=== PATIENT | female | born 1960 | race Caucasian/White ===

== ENCOUNTER → 2016-02-29 | Outpatient (CLI) | payer BC ==
[~2016-02-29] MED LIST: ALL180 PO; AMB10 PO; AMOX875T PO; ASPI81TA28 PO; CIPR-255 PO; COEN100C3 PO; COEN100C7 PO; COEN1CAP46 PO; CRS/10 PO; CRS10 PO; CYCL10TA6 PO; DIAZ2TAB PO; DICY10CA12 PO; ERGO500037 PO; FEXO1TAB49 PO; FISHOIL PO; HYDR-5688 PO; HYOS0.1255 PO; LORA0.5T12 PO; MELO7.5T5 PO; METHPOW7 PO; METO25TA3 PO; METR-162 PO; MINEOIL26 PO; MISCCAP80 PO; OMEG100046 PO; OMEG1CAP38 PO; ONDA4TAB46 PO; OXYC1TAB3 PO; RYT150 PO; TRAM-10 PO; TRAZ50TA35 PO; ZOLP5TAB PO
--- NOTE | 2016-02-29 12:36 | MAMMOGRAPHY REPORT ---
BILATERAL DIGITAL SCREENING MAMMOGRAM TOMOSYNTHESIS WITH CAD: 02/29/2016 CLINICAL HISTORY: Routine screening. Patient has no complaints. TECHNIQUE: Breast tomosynthesis in addition to standard 2D mammography was performed. Current study was also evaluated with a Computer Aided Detection (CAD) system. COMPARISON: Comparison is made to exams dated: 02/08/2013 mammogram, 02/27/2015 mammogram, 02/21/2014 mammogram, 02/07/2012 mammogram, 02/05/2011 mammogram, and 01/02/2010 mammogram - [facility]. BREAST COMPOSITION: The tissue of both breasts is almost entirely fatty. FINDINGS: No suspicious masses, calcifications, or areas of architectural distortion are noted in e ither breast. There has been no significant interval change compared to prior exams. IMPRESSION: ACR BI-RADS CATEGORY 1: NEGATIVE There is no mammographic evidence of malignancy. A 1 year screening mammogram is recommended. The p atient will receive written notification of the results. Approximately 10% of breast cancers are not detected with mammography. A negative mammographic repor t should not delay biopsy if a clinically suggestive mass is present. Tammie Henning M.D. /:02/29/2016 07:49:25 Equipment Or Machinery Cleaner: Coleen EDMOND(R)(M), [facility] letter sent: Normal 1/2 BI-RADS Code: ACR BI-RADS Category 1: Negative
== END | disposition home or self-care (01) ==
LOC: C.MAMM 07:10
PROVIDERS: ATTEND Family Medicine
DX: Z12.31 Encounter for screening mammogram for malignant neoplasm of breast (principal)

== ENCOUNTER → 2016-03-06 | Outpatient (CLI) | payer BC ==
--- NOTE | 2016-03-06 07:55 | DIAGNOSTIC IMAGING REPORT ---
RENAL ULTRASOUND CLINICAL HISTORY: Renal cyst. COMPARISON STUDY: CT of the abdomen and pelvis February 17, 2016 and renal ultrasound October 31, 2008. TECHNIQUE: Sonography of the kidneys and the urinary bladder was performed. FINDINGS: The right kidney measures 10.9 cm in maximal dimension and the left measures 11.8 cm. There is no hydronephrosis. There is mild renal cortical thinning. There is a 1.2 cm cyst within the midpole of the right kidney and a 1.1 cm cyst within the midpole of the left kidney. Both ureteral jets were identified. Fatty infiltration of the liver was incidentally noted. IMPRESSION: 1. 1.2 cm right renal cyst and 1.1 cm left renal cyst. 2. No hydronephrosis. 3. Fatty liver. Electronically signed by: Kike Brower M.D. 03/06/2016 7:52 AM Dictated Date/Time: 03/06/2016 7:51 AM
== END | disposition home or self-care (01) ==
LOC: C.ULTR 06:51
PROVIDERS: ATTEND Family Medicine
DX: N28.1 Cyst of kidney, acquired (principal); K76.0 Fatty (change of) liver, not elsewhere classified

== ENCOUNTER 2016-06-02 12:28 | Emergency (ER) | payer BC, OTHER ==
[~2016-06-02] VITALS: Ht 160 cm; Wt 88.0 kg
[~2016-06-02 12:28] MED LIST changes: -AMB10 PO; -AMOX875T PO; -CIPR-255 PO; -COEN100C3 PO; -COEN100C7 PO; -CRS/10 PO; -CRS10 PO; -CYCL10TA6 PO; -DIAZ2TAB PO; -DICY10CA12 PO; -ERGO500037 PO; -FEXO1TAB49 PO; -HYDR-5688 PO; -HYOS0.1255 PO; -LORA0.5T12 PO; -MELO7.5T5 PO; -METR-162 PO; -MISCCAP80 PO; -OMEG100046 PO; -OMEG1CAP38 PO; -ONDA4TAB46 PO; -OXYC1TAB3 PO; +PROP150T2 PO; -RYT150 PO; -TRAM-10 PO; -TRAZ50TA35 PO
[2016-06-02 12:31] VITALS: TEMP 36.8; Ht 160 cm; Wt 88.0 kg
[2016-06-02 13:32] VITALS: O2SAT 98
[2016-06-02 13:37] LABS: HEMATOCRIT 40.9 % (37-47); MEAN CELL VOLUME 89.1 fL (80-100); MEAN CORPUSCULAR HEMOGLOBIN 29.8 pg (25-34); MEAN CORPUSCULAR HGB CONC 33.5 g/dl (32-36); MEAN PLATELET VOLUME 10.7 fL (7.4-10.4); PLATELET COUNT 257 K/uL (130-400); RED BLOOD COUNT 4.59 M/uL (4.2-5.4); WHITE BLOOD COUNT 4.86 K/uL (4.8-10.8)
[2016-06-02 13:41] LABS: PARTIAL THROMBOPLASTIN RATIO 1.2; PROTHROMBIN TIME (PATIENT) 10.5 SECONDS (9.0-12.0)
[2016-06-02 13:46] LABS: ALT/SGPT 33 U/L (12-78); AST/SGOT 19 U/L (15-37); BLOOD UREA NITROGEN 19 mg/dl (7-18); BUN/CREATININE RATIO 18.7 (10-20); CALCIUM 8.7 mg/dl (8.5-10.1); CARBON DIOXIDE 30 mmol/L (21-32); CHLORIDE 105 mmol/L (98-107); GLUCOSE 95 mg/dl (70-99); POTASSIUM 3.6 mmol/L (3.5-5.1); SODIUM 144 mmol/L (136-145)
[2016-06-02 13:51] LABS: ALB/GLOB RATIO 1.1 (0.9-2); ALKALINE PHOSPHATASE 82 U/L (45-117)
[2016-06-02] MEDS ORDERED: ACETAMINOPHEN 500 MG TAB PO STA (14:12)
--- NOTE | 2016-06-02 14:14 | DIAGNOSTIC IMAGING REPORT ---
SINGLE VIEW CHEST CLINICAL HISTORY: Atypical chest pain. FINDINGS: An AP, portable, upright chest radiograph is compared to study dated 02/17/2016 and correlated with chest CT dated 12/13/2015. The examination is degraded by portable technique and patient rotation. The cardiomediastinal silhouette is unremarkable. There is mild bibasilar atelectasis. The lungs and pleural spaces are otherwise clear noting chronic interstitial thickening. No pneumothorax is seen. The skeletal structures are osteopenic. The bony thorax is grossly intact. IMPRESSION: No active disease in the chest. Electronically signed by: Jimmy Velazquez M.D. 06/02/2016 2:12 PM Dictated Date/Time: 06/02/2016 2:11 PM
--- NOTE | 2016-06-02 14:17 | EMERGENCY ROOM VISIT NOTE ---
History Report prepared by Srinivasa: Jordi Sarmiento Under the Supervision of: Dr. Mychal Maldonado D.O. First contact with patient: 13:42 Chief Complaint: CHEST PAIN Stated Complaint: CHEST PAIN Nursing Triage Summary: Pt reports intermittent chest pressure for "weeks." Pt reports chest pressure became worse last night and was only able to sleep approx 2 hours. Pt also reports mild shortness of breath. Pt states pain radiates into L neck and shoulder at times. Pt also c/o associated nausea with the chest pressure. Pt reports she takes 81 mg of Aspirin nightly. History of Present Illness The patient is a 55 year old female who presents to the Emergency Room with complaints of on and off chest pressure for the past month or so. The patient states that last night she could not sleep due to the pain, and it has not gone away. She states that the pressure is worsened when exerting herself such as going up and down stairs. She additionally states that she has been nauseous. The patient denies any recent illnesses. She states that she takes medication for her heart because she recently had a catheterization of her heart done, and she also had a stress test done in November. Source of History: patient Onset: a month ago Position: chest Quality: pressure Timing: other (on and off) Modifying Factors (Worsening): exertion Associated Symptoms: + nausea Review of Systems See HPI for pertinent positives & negatives. A total of 10 systems reviewed and were otherwise negative. Past Medical & Surgical Medical Problems: (1) Appendectomy (2) Benign hypertension (3) Cholecystectomy (4) Hysterectomy (5) Rectal fissure (6) Rectal fistula Family History Diabetes mellitus Hypertension Kidney disease Social History Smoking Status: Never Smoker Alcohol Use: none Drug Use: none Marital Status: Housing Status: lives alone Occupation Status: employed Current/Historical Medications Scheduled Aspirin (Aspirin Ec), 81 MG PO QPM Coenzyme Q10 (Ubidecarenone) (Co Q-10), 100 MG PO DAILY Fexofenadine Hcl (Michell Allergy), 180 MG PO DAILY Methylcellulose (Laxative) (Citrucel Fiber Laxative), 2 TBS PO DIRECTED Metoprolol Succinate (Toprol Xl), 12.5 MG PO HS Mineral Oil (Mineral Oil), 2 TBS PO QPM [place]-3 Fatty Acids (Gnp Fish Oil Maximum Stre), 1 CAP PO DAILY Propafenone HCl (Propafenone HCl), 150 MG PO Q8 Rosuvastatin Calcium (Crestor), 10 MG PO DAILY Zolpidem Tartrate (Ambien), 5 MG PO HS Allergies Coded Allergies: NSAIDs (Verified Allergy, Unknown, HIVES, PATIENT STATES SHE CAN TAKE ALEVE AND MOTRIN, 02/17/16) Naproxen (Verified Allergy, Unknown, HIVES, 02/17/16) Replaces NAPROXEN SODI Uncoded Allergies: BANDAIDS (Allergy, Unknown, blisters, 05/23/14) Physical Exam Vital Signs Date Time Temp Pulse Resp B/P Pulse Ox O2 Delivery O2 Flow Rate FiO2 06/02/16 13:49 75 18 110/63 94 Room Air 06/02/16 13:32 98 Room Air 06/02/16 13:32 98 Room Air 06/02/16 13:24 71 06/02/16 13:05 69 12 105/69 98 Room Air 06/02/16 13:00 94 Room Air 06/02/16 12:31 36.8 80 18 115/75 97 Room Air Physical Exam CONSTITUTIONAL/VITAL SIGNS: Reviewed / noted above. GENERAL: Non-toxic in appearance. INTEGUMENTARY: Warm, dry, and [place]. HEAD: Normocephalic. EYES: without scleral icterus or trauma. ENT/OROPHARYNX: clear and moist. LYMPHADENOPATHY/NECK: Is supple without lymphadenopathy or meningismus. RESPIRATORY: Lungs clear and equal. CARDIOVASCULAR: Regular rate and rhythm. GI/ABDOMEN: Soft and nontender. No organomegaly or pulsatile mass. No rebound or guarding. Normal bowel sounds. EXTREMITIES: Warm and well perfused. BACK: No CVA tenderness. NEUROLOGICAL: Intact without focal deficits. PSYCHIATRIC: normal affect. MUSCULOSKELETAL: Normally developed with good muscle tone. Medical Decision & Procedures ER Provider Diagnostic Interpretation: X ray results and stated below per my interpretation and radiology interpretation. SINGLE VIEW CHEST CLINICAL HISTORY: Atypical chest pain. FINDINGS: An AP, portable, upright chest radiograph is compared to study dated 02/17/2016 and correlated with chest CT dated 12/13/2015. The examination is degraded by portable technique and patient rotation. The cardiomediastinal silhouette is unremarkable. There is mild bibasilar atelectasis. The lungs and pleural spaces are otherwise clear noting chronic interstitial thickening. No pneumothorax is seen. The skeletal structures are osteopenic. The bony thorax is grossly intact. IMPRESSION: No active disease in the chest. Electronically signed by: Jimmy Velazquez M.D. 06/02/2016 2:12 PM Dictated Date/Time: 06/02/2016 2:11 PM Laboratory Results 06/02/16 12:40 06/02/16 12:40 Test 06/02/16 12:40 Red Blood Count 4.59 M/uL (4.2-5.4) Mean Corpuscular Volume 89.1 fL (80-100) Mean Corpuscular Hemoglobin 29.8 pg (25-34) Mean Corpuscular Hemoglobin Concent 33.5 g/dl (32-36) RDW Standard Deviation 43.4 fL (36.4-46.3) RDW Coefficient of Variation 13.3 % (11.5-14.5) Mean Platelet Volume 10.7 fL (7.4-10.4) Prothrombin Time 10.5 SECONDS (9.0-12.0) Prothromb Time International Ratio 1.0 (0.9-1.1) Activated Partial Thromboplast Time 30.1 SECONDS (21.0-31.0) Partial Thromboplastin Ratio 1.2 Anion Gap 9.0 mmol/L (3-11) Est Creatinine Clear Calc Drug Dose 66.9 ml/min Estimated GFR () 73.5 Estimated GFR (Non- 63.4 BUN/Creatinine Ratio 18.7 (10-20) Calcium Level 8.7 mg/dl (8.5-10.1) Total Bilirubin 0.6 mg/dl (0.2-1) Aspartate Amino Transf (AST/SGOT) 19 U/L (15-37) Alanine Aminotransferase (ALT/SGPT) 33 U/L (12-78) Alkaline Phosphatase 82 U/L (45-117) Total Creatine Kinase 106 U/L (26-192) Creatine Kinase MB 1.1 ng/ml (0.5-3.6) Creatine Kinase MB Ratio 1.0 (0-3.0) Troponin I < 0.015 ng/ml (0-0.045) Total Protein 7.4 gm/dl (6.4-8.2) Albumin 3.9 gm/dl (3.4-5.0) Globulin 3.5 gm/dl (2.5-4.0) Albumin/Globulin Ratio 1.1 (0.9-2) Laboratory results as stated above per my review. ECG Indication: chest pain Rate (beats per minute): 65 Rhythm: sinus rhythm Findings: 1st degree AV block, no ectopy, other (No acute injury) ED Course 1350: Previous medical records were reviewed. The patient was evaluated in room A9. A complete history and physical examination was performed. 1412: Tylenol Tab 1000mg PO 1430: On reevaluation, the patient is feeling better. I discussed the results and findings with the patient. She verbalized agreement of the treatment plan. She was discharged home. Medical Decision the differential was considered includes acute myocardial infarction, acute coronary syndrome, myocarditis, pericarditis, pericardial effusions /tamponade, esophageal perforation, thoracic aortic dissection, pulmonary embolism, pneumonia, pneumothorax, pancreatitis, shingles, acute cholecystitis, perforated abdominal viscus. This is a 55-year-old female who presents to the ED with a chief complaint of chest pressure. The patient states that she has had the symptoms for about 2 months. She states that there off and on. Occasionally it increases with thinking and sometimes with exertion. The patient denies any associated symptoms. She has not had any recent illness. She denies any fevers. No shortness of breath. The patient reports a history of cardiac ablation for SVT and 05/31. She had a stress test and 12/02. The patient's exam was normal. Her vital signs are normal. She is in no distress. CBC is normal, complete metabolic panels normal, troponin is negative. Chest x-ray was negative for acute disease. An EKG shows a sinus rhythm at a rate of 75 with a first-degree AV block without acute injury or ectopy. She was told results the test. 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 Impression Primary Impression: Substernal precordial chest pain Scribe Attestation The scribe's documentation has been prepared under my direction and personally reviewed by me in its entirety. I confirm that the note above accurately reflects all work, treatment, procedures, and medical decision making performed by me. Departure Information Dispostion Home / Self-Care Referrals Vidhi Hairston D.O. (PCP) Forms HOME CARE DOCUMENTATION FORM, IMPORTANT VISIT INFORMATION Patient Instructions Chest Pain - [facility], My [facility] Additional Instructions Your test results today did not reveal a cause for your symptoms. Follow-up with your doctor and/or timber supervisor for further evaluation. Call tomorrow for an appointment. Return for significant worsening, changes or new concerns.
[2016-06-02] MEDS ORDERED: OMEG1CAP38 PO (14:38)
[2016-06-02] MEDS ORDERED: CRS10 PO (14:38)
[2016-06-02] MEDS ORDERED: FEXO1TAB49 PO (14:38)
[2016-06-02] MEDS ORDERED: COEN100C3 PO (14:38)
[2016-06-02 14:45] VITALS: BP 111/76; PULSE 70; O2SAT 95
[2016-07-24] MEDS ORDERED: PROP150T2 PO (13:00)
[2016-07-24] MEDS ORDERED: AMOX875T PO (15:32)
[2016-07-24] MEDS ORDERED: HYDR-5688 PO (15:32)
[2016-09-16] MEDS ORDERED: MELO7.5T5 PO (08:17)
[2016-09-16] MEDS ORDERED: TRAZ50TA35 PO (08:17)
[2016-09-16] MEDS ORDERED: ERGO500037 PO (08:17)
[2016-09-16] MEDS ORDERED: LORA0.5T12 PO (08:17)
[2016-11-04] MEDS ORDERED: CYCL10TA6 PO (11:03)
[2016-11-04] MEDS ORDERED: TRAM-10 PO (11:03)
[2016-11-25] MEDS ORDERED: GABA-113 PO (09:20)
== END 2016-06-02 14:46 | disposition home or self-care (01) ==
LOC: C.EDB 12:28 → C.EDA 14:46
DX: R07.2 Precordial pain (principal); I44.0 Atrioventricular block, first degree; I10 Essential (primary) hypertension; Z90.710 Acquired absence of both cervix and uterus; Z98.890 Other specified postprocedural states; Z79.82 Long term (current) use of aspirin; Z79.899 Other long term (current) drug therapy; Z88.8 Allergy status to other drugs, medicaments and biological substances; Z83.3 Family history of diabetes mellitus; Z82.49 Family history of ischemic heart disease and other diseases of the circulatory system; Z84.1 Family history of disorders of kidney and ureter

== ENCOUNTER 2016-06-24 15:24 | Emergency (ER) | payer BC ==
[~2016-06-24] VITALS: Ht 160 cm; Wt 87.6 kg
[~2016-06-24 15:24] MED LIST changes: -AMB10 PO; -AMOX875T PO; -CIPR-255 PO; -COEN100C7 PO; -CRS/10 PO; -CYCL10TA6 PO; -DIAZ2TAB PO; -DICY10CA12 PO; -ERGO500037 PO; -GABA-113 PO; -HYDR-5688 PO; -HYOS0.1255 PO; -LORA0.5T12 PO; -MELO7.5T5 PO; -METR-162 PO; -MINEOIL26 PO; -MISCCAP80 PO; -OMEG100046 PO; -ONDA4TAB46 PO; -OXYC1TAB3 PO; -TRAM-10 PO; -TRAZ50TA35 PO
[2016-06-24 15:36] VITALS: TEMP 36.9; Ht 160 cm; Wt 87.6 kg
[2016-06-24] MEDS ORDERED: TRAM-10 PO (16:07)
--- NOTE | 2016-06-24 16:15 | EMERGENCY ROOM VISIT NOTE ---
History First contact with patient: 15:39 Chief Complaint: GROIN PAIN Stated Complaint: LEFT SIDE GROIN PAIN History of Present Illness The patient is a 55 year old female who presents to the Emergency Room with complaints of persistent left lower abdominal pain after lifting a heavy bag of dog food yesterday. The patient reports feeling a tearing sensation in the abdomen. The patient was seen this morning by her PCP, and had an outpatient ultrasound performed that was normal. Because of her persistent pain, the patient called her family doctor's office, and according to the patient, was referred here for further reevaluation. The patient denies any pain extending into the back or left lower extremity. Her pain is not worsened with simple ambulation. The pain is worsened when bending over or attempting to sit up area she denies any pain extending into the vaginal region, and denies any difficulty with urination. The patient denies any prior history of left lower abdominal wall hernias. She does have a history of hysterectomy. She rates her discomfort an 8 out of 10. The patient has taken Flexeril and Aleve without any relief. Review of Systems 10 system review was performed and was negative except for pertinent positives and negatives as indicated in history of present illness Past Medical/Surgical History Medical Problems: (1) Appendectomy (2) Benign hypertension (3) Cholecystectomy (4) Hysterectomy (5) Rectal fissure (6) Rectal fistula Family History Diabetes mellitus Hypertension Kidney disease Social History Smoking Status: Never Smoker Alcohol Use: none Drug Use: none Marital Status: Housing Status: lives alone Occupation Status: employed Current/Historical Medications Scheduled Aspirin (Aspirin Ec), 81 MG PO QPM Coenzyme Q10 (Ubidecarenone) (Co Q-10), 100 MG PO DAILY Fexofenadine Hcl (Michell Allergy), 180 MG PO DAILY Methylcellulose (Laxative) (Citrucel Fiber Laxative), 2 TBS PO DIRECTED Metoprolol Succinate (Toprol Xl), 12.5 MG PO HS [place]-3 Fatty Acids (Gnp Fish Oil Maximum Stre), 1 CAP PO DAILY Propafenone HCl (Propafenone HCl), 150 MG PO Q8 Rosuvastatin Calcium (Crestor), 10 MG PO DAILY Zolpidem Tartrate (Ambien), 5 MG PO HS Scheduled PRN Tramadol (Ultram), 1-2 TAB PO Q4H PRN for Pain Allergies Coded Allergies: NSAIDs (Verified Allergy, Unknown, HIVES, PATIENT STATES SHE CAN TAKE ALEVE AND MOTRIN, 02/17/16) Naproxen (Verified Allergy, Unknown, HIVES, 06/02/16) Replaces NAPROXEN SODI Uncoded Allergies: BANDAIDS (Allergy, Unknown, blisters, 05/23/14) Physical Exam Vital Signs Date Time Temp Pulse Resp B/P Pulse Ox O2 Delivery O2 Flow Rate FiO2 06/24/16 15:36 36.9 96 18 95 Room Air Physical Exam CONSTITUTIONAL: Healthy and well nourished. Alert and oriented X 3 with positive affect. Patient appears in mild discomfort from pain. HEENT: Normocephalic, atraumatic. Pupils equal, round and reactive. NECK: Full active range of motion without discomfort. RESPIRATORY: Clear to auscultation bilaterally with no wheezing, crackles, rhonchi or stridor. CARDIOVASCULAR: Regular rate and rhythm with no murmurs, rubs or gallops. GASTROINTESTINAL: Bowel sounds present in all quadrants. The patient has notable left lower quadrant tenderness to palpation without any palpable masses. She is also tender over the anterior superior iliac spine. When the patient attempted to sit up, her pain is worsened. No rigidity, guarding or rebound. MUSCULOSKELETAL: Full range of motion of all joints without discomfort. Negative logroll of the left hip. Negative straight leg raise. INTEGUMENTARY: No rash or other significant dermatologic conditions noted. NEUROLOGIC: No focal neurologic deficits noted. Medical Decision & Procedures ER Provider Diagnostic Interpretation: I did review a prior enhanced CT of the abdomen and pelvis on 02/17/16, showed no acute findings when she presented for left lower quadrant abdominal pain: IMPRESSION: 1. No evidence of bowel obstruction. No evidence of free air. 2. Normal appendix. No evidence of acute diverticulitis. 3. Surgically absent gallbladder and uterus 4. Hepatic steatosis Left lower quadrant ultrasound from this morning does not show any evidence for abdominal wall or inguinal hernia. Radiologist report is as follows: ABDOMEN FOR HERNIA CLINICAL HISTORY: Left lower quadrant pain. Evaluate for hernia. COMPARISON STUDY: CT of the abdomen and pelvis February 17, 2016. TECHNIQUE: Sonography of the left lower quadrant was performed with and without stress maneuvers. FINDINGS: No left lower quadrant hernia was identified. No mass or other sonographic abnormality within the left lower quadrant abdominal wall was identified. IMPRESSION: No left lower quadrant hernia identified. ED Course Patient history and physical exam were performed. Nurse's notes were reviewed. The patient did appear in mild discomfort. I performed a review of prior medical records, including the ultrasound report from this morning. I also reviewed an enhanced CT of the abdomen and pelvis performed on 02/17/16 when the patient presented to the emergency department with complaint of left lower quadrant abdominal pain. That CT scan showed no evidence for diverticulosis or other acute findings. Based on physical exam findings today, and normal abdominal wall ultrasound, I explained to the patient that her risk for abdominal wall hernia is low. I did explain that she certainly could have a muscular tear or strain of the abdominal wall musculature. At this point, I do not feel that a CT scan would show us much different, plus provide significant radiation exposure for low yield. However, I did suggest that I discuss this further with Dr. Hairston, the patient's PCP. I spoke with Dr. Hairston, who reports that she told the patient to same thing, but the patient insisted on coming to the emergency department for reevaluation. I also reviewed the patient's prior narcotic prescription history with both Dr. Hairston and the [place] Prescription Drug Monitoring Program, showing that the patient has not had any prior prescription narcotic analgesics. Dr. Hairston suggested that the patient follow-up in her office as needed for further management, calling for an appointment. This information was further discussed with the patient, and the patient was in agreement with this plan of care. The patient did want something for pain, but refused any narcotic prescriptions. She was provided a prescription for Ultram, and was encouraged to take Tylenol for baseline pain relief. She was encouraged to intermittently apply ice to the abdominal wall, and avoid any heavy lifting, pushing or pulling. The patient was happy with plan of care, voiced understanding of all discharge instructions, refused any analgesics while in the emergency department, and rated her pain a 6 out of 10 at the time of discharge. [place] Drug Monitoring Program Search Results: patient reviewed within database, no issues identified Impression Primary Impression: Strain of abdominal wall Departure Information Prescriptions Tramadol (Ultram) 50 Mg Tab 1-2 TAB PO Q4H Y for Pain, #20 TAB For Initial Treatment Prov: Cristino Kaur PA 06/24/16 Referrals Vidhi Hairston D.O. (PCP) Patient Instructions [facility] Problem Qualifiers Primary Impression: Strain of abdominal wall Encounter type: initial encounter Qualified Codes: S39.011A - Strain of muscle, fascia and tendon of abdomen, initial encounter
[2016-06-24 16:17] VITALS: BP 97/70; PULSE 100; O2SAT 94
[2016-07-24] MEDS ORDERED: PROP150T2 PO (13:00)
[2016-07-24] MEDS ORDERED: HYDR-5688 PO (15:32)
[2016-07-24] MEDS ORDERED: AMOX875T PO (15:32)
[2016-09-16] MEDS ORDERED: TRAZ50TA35 PO (08:17)
[2016-09-16] MEDS ORDERED: MELO7.5T5 PO (08:17)
[2016-09-16] MEDS ORDERED: ERGO500037 PO (08:17)
[2016-09-16] MEDS ORDERED: LORA0.5T12 PO (08:17)
[2016-11-04] MEDS ORDERED: TRAM-10 PO (11:03)
[2016-11-04] MEDS ORDERED: CYCL10TA6 PO (11:03)
[2016-11-25] MEDS ORDERED: GABA-113 PO (09:20)
== END 2016-06-24 16:20 | disposition home or self-care (01) ==
LOC: C.EDB 15:25 → C.EDD 16:20
DX: S39.011A Strain of muscle, fascia and tendon of abdomen, initial encounter (principal); X58.XXXA Exposure to other specified factors, initial encounter; I10 Essential (primary) hypertension; Z90.710 Acquired absence of both cervix and uterus; Z90.49 Acquired absence of other specified parts of digestive tract; Z98.890 Other specified postprocedural states; Z79.82 Long term (current) use of aspirin; Z88.8 Allergy status to other drugs, medicaments and biological substances; Z83.3 Family history of diabetes mellitus; Z82.49 Family history of ischemic heart disease and other diseases of the circulatory system; Z84.1 Family history of disorders of kidney and ureter

== ENCOUNTER → 2016-06-24 | Outpatient (CLI) | payer BC ==
[~2016-06-24] MED LIST changes: -ALL180 PO; +AMB10 PO; +AMOX875T PO; +CIPR-255 PO; +COEN100C3 PO; +COEN100C7 PO; -COEN1CAP46 PO; +CRS/10 PO; +CRS10 PO; +CYCL10TA6 PO; +DIAZ2TAB PO; +DICY10CA12 PO; +ERGO500037 PO; +FEXO1TAB49 PO; -FISHOIL PO; +GABA-113 PO; +HYDR-5688 PO; +HYOS0.1255 PO; +LORA0.5T12 PO; +MELO7.5T5 PO; +METR-162 PO; +MISCCAP80 PO; +OMEG100046 PO; +OMEG1CAP38 PO; +ONDA4TAB46 PO; +OXYC1TAB3 PO; +TRAM-10 PO; +TRAZ50TA35 PO
--- NOTE | 2016-06-24 15:07 | DIAGNOSTIC IMAGING REPORT ---
ABDOMEN FOR HERNIA CLINICAL HISTORY: Left lower quadrant pain. Evaluate for hernia. COMPARISON STUDY: CT of the abdomen and pelvis February 17, 2016. TECHNIQUE: Sonography of the left lower quadrant was performed with and without stress maneuvers. FINDINGS: No left lower quadrant hernia was identified. No mass or other sonographic abnormality within the left lower quadrant abdominal wall was identified. IMPRESSION: No left lower quadrant hernia identified. Electronically signed by: Kike Brower M.D. 06/24/2016 3:06 PM Dictated Date/Time: 06/24/2016 3:04 PM
== END | disposition home or self-care (01) ==
LOC: C.ULTR 14:47
PROVIDERS: ATTEND Family Medicine
DX: R10.9 Unspecified abdominal pain (principal)

== ENCOUNTER 2016-07-12 11:20 | Emergency (ER) | payer BC ==
[~2016-07-12] VITALS: Ht 160 cm; Wt 85.0 kg
[~2016-07-12 11:20] MED LIST changes: +TRAM-10 PO
[2016-07-12 11:23] VITALS: TEMP 36.6; Ht 160 cm; Wt 85.0 kg
[2016-07-12] MEDS ORDERED: ONDANSETRON INJ 2 MG/ML 2 ML VIAL IV STA ×2 (11:56→12:38)
[2016-07-12] MEDS ORDERED: SODIUM CHLORIDE 0.9% 1000ML 1,000 ML IV STA (11:56)
[2016-07-12] MEDS ORDERED: OPTIRAY 320 IV PRN ×2 (12:15→13:30)
[2016-07-12 12:20] LABS: BASO % 0.1 %; BASO ABS # 0.01 K/uL (0-0.2); COMPLETE YES; HEMATOCRIT 43.7 % (37-47); IG% 0.1 %; LYMPH % 21.5 %; LYMPH ABS # 1.71 K/uL (1.2-3.4); MEAN CORPUSCULAR HEMOGLOBIN 30.1 pg (25-34); MEAN CORPUSCULAR HGB CONC 32.7 g/dl (32-36); MEAN PLATELET VOLUME 10.8 fL (7.4-10.4); MONO % 10.4 %; NEUT % 66.9 %; PLATELET COUNT 279 K/uL (130-400); RED BLOOD COUNT 4.75 M/uL (4.2-5.4); WHITE BLOOD COUNT 7.96 K/uL (4.8-10.8)
[2016-07-12 12:33] LABS: URINE APPEARANCE CLEAR (CLEAR); URINE BILIRUBIN NEG (NEG); URINE COLOR YELLOW; URINE NITRITE NEG (NEG); URINE PH 8.5 (4.5-7.5); URINE SPECIFIC GRAVITY 1.013 (1.000-1.030); UROBILINOGEN NEG (NEG); ZZUR CULT IF INDIC CLEAN CATCH NO
[2016-07-12 12:38] LABS: MANUAL MICROSCOPIC REQUIRED? NO; REVIEW REQ? NO
[2016-07-12] MEDS ORDERED: MoRPHine SULFATE 10 MG/ML CARP/VIAL IV STA (12:38)
[2016-07-12 12:44] LABS: BUN/CREATININE RATIO 15.9 (10-20); CALCIUM 9.3 mg/dl (8.5-10.1); CREATININE 0.82 mg/dl (0.60-1.20)
[2016-07-12] MEDS ORDERED: OMEG100046 PO (12:45)
[2016-07-12] MEDS ORDERED: METHPOW7 PO (12:45)
[2016-07-12] MEDS ORDERED: FEXO1TAB49 PO (12:45)
[2016-07-12] MEDS ORDERED: ASPI81TA28 PO (12:45)
[2016-07-12] MEDS ORDERED: COEN100C7 PO (12:45)
[2016-07-12] MEDS ORDERED: ZOLP5TAB PO (12:45)
[2016-07-12] MEDS ORDERED: METO25TA3 PO (12:45)
[2016-07-12] MEDS ORDERED: MINEOIL26 PO (12:45)
[2016-07-12] MEDS ORDERED: CRS/10 PO (12:45)
--- NOTE | 2016-07-12 13:39 | DIAGNOSTIC IMAGING REPORT ---
ABDOMEN AND PELVIS CT WITH IV CONTRAST CT DOSE: 983.66 mGycm HISTORY: Right lower quadrant abdominal pain. TECHNIQUE: Multiaxial CT images of the abdomen and pelvis were performed following the use of intravenous contrast. COMPARISON STUDY: Abdomen and pelvis CT 02/17/2016. FINDINGS: A few bibasilar linear densities favor subsegmental atelectasis are scarring. Cholecystectomy. The liver, spleen, adrenal glands, and pancreas are unremarkable. A left retroaortic renal vein. Tiny fat-containing umbilical hernia. No hydronephrosis. Stable 7 mm hypodense lesion within the left kidney and the left millimeter lesion within the right kidney. Stable slightly prominent periportal lymph nodes. Normal bladder. Hysterectomy. Focal mild thickening within the mid sigmoid colon with an inflamed diverticulum and surrounding pericolonic fat stranding. This is consistent with acute diverticulitis. No perforation or abscess identified at this time. No evidence for bowel obstruction. Normal appendix. A 9 mm faint nodular opacity within the left lower quadrant omentum on image 232. This is new from the prior study. IMPRESSION: 1. Mild acute sigmoid diverticulitis. No perforation or abscess. 2. Normal appendix. 3. Cholecystectomy. 4. Hysterectomy. 5. A 9 mm faint nodular opacity within the left lower quadrant omentum. This is new from the prior study. This is of uncertain clinical significance. However, if a one month abdomen and pelvis CT follow is recommended to ensure stability. Electronically signed by: Victoriano Virk M.D. 07/12/2016 1:37 PM Dictated Date/Time: 07/12/2016 1:30 PM
[2016-07-12] MEDS ORDERED: GI COCKTAIL PO STA (14:03)
[2016-07-12] MEDS ORDERED: LIDOCAINE HCL 2% VISC SOLN 20 ML UDC ONE (14:13)
[2016-07-12] MEDS ORDERED: ALUMINUM/MAGNESIUM SUSP 30 ML UDC ONE (14:13)
[2016-07-12] MEDS ORDERED: METRONIDAZOLE 500MG / 100ML NSS IV STA (14:20)
[2016-07-12] MEDS ORDERED: CIPROFLOXACIN 500 MG TAB PO STA (14:20)
[2016-07-12] MEDS ORDERED: SODIUM CHLORIDE 0.9% 500ML 500 ML IV STA (15:02)
[2016-07-12] MEDS ORDERED: OXYC1TAB3 PO (15:11)
[2016-07-12] MEDS ORDERED: METR-162 PO (15:11)
[2016-07-12] MEDS ORDERED: CIPR-255 PO (15:11)
[2016-07-12 16:52] VITALS: BP 100/58; PULSE 76; O2SAT 92
--- NOTE | 2016-07-12 17:12 | EMERGENCY ROOM VISIT NOTE ---
History Report prepared by Srinivasa: Corrine Smith Under the Supervision of: Dr. Dewey Beach D.O. First contact with patient: 11:32 Chief Complaint: ABDOMINAL PAIN Stated Complaint: BELLY PAIN Nursing Triage Summary: pt here abd pains across abd since friday. pt states more tender on right side. some nausea. History of Present Illness The patient is a 55 year old female who presents to the Emergency Room with complaints of constant abdominal pain beginning 5 days prior to arrival. She is also experiencing nausea and diarrhea. She notes a history of diverticulitis and at first thought this is what she had. The patient did take Amoxicillin for 2 days but stopped when she did not see improvement of her symptoms. She does still have her appendix. The patient has had her gall bladder removed and a complete hysterectomy. Pt denies headache, change in vision, fevers, chest pain , shortness of breath, vomiting, pain with urination, and melena. 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 A total of 10 systems reviewed and were otherwise negative. Past Medical & Surgical Medical Problems: (1) Appendectomy (2) Benign hypertension (3) Cholecystectomy (4) Hysterectomy (5) Rectal fissure (6) Rectal fistula Family History Diabetes mellitus Hypertension Kidney disease Social History Smoking Status: Never Smoker Alcohol Use: none Drug Use: none Marital Status: Housing Status: lives alone Occupation Status: employed Current/Historical Medications Scheduled Aspirin (Aspirin Ec), 81 MG PO DAILY Ciprofloxacin Hcl (Cipro), 500 MG PO BID Coenzyme Q10 (Ubidecarenone) (Coq10), 100 MG PO DAILY Fexofenadine Hcl ([place]hell Allergy), 1 TAB PO DAILY Methylcellulose (Laxative) (Citrucel Fiber Laxative), 2 TBS PO DAILY Metoprolol Succ (Toprol Xl) (Toprol-Xl), 25 MG PO QPM Metronidazole (Flagyl), 1 TAB PO TID Mineral Oil (Mineral Oil), 2 TBS PO DAILY [place]-3 Fatty Acids ([place] 3), 1,200 MG PO AMPM Rosuvastatin Calcium (Crestor), 10 MG PO QPM Zolpidem Tartrate (Ambien), 5 MG PO HS Scheduled PRN Oxycodone Immediate Rel Tab (Roxicodone Ir), 5 MG PO Q6H PRN for Pain Allergies Coded Allergies: NSAIDs (Verified Allergy, Unknown, HIVES, PATIENT STATES SHE CAN TAKE ALEVE AND MOTRIN, 02/17/16) Naproxen (Verified Allergy, Unknown, HIVES, 06/02/16) Replaces NAPROXEN SODI Uncoded Allergies: BANDAIDS (Allergy, Unknown, blisters, 05/23/14) Physical Exam Vital Signs Date Time Temp Pulse Resp B/P Pulse Ox O2 Delivery O2 Flow Rate FiO2 07/12/16 16:52 76 18 100/58 92 07/12/16 16:00 63 16 97/59 93 Room Air 07/12/16 14:31 92/56 07/12/16 14:20 72 10 94 07/12/16 14:18 110/70 07/12/16 13:50 69 18 93 07/12/16 13:31 103/64 07/12/16 13:21 109/59 07/12/16 13:20 72 16 97 07/12/16 12:50 71 14 97 07/12/16 12:31 94/53 07/12/16 12:20 72 15 96 07/12/16 12:03 69 07/12/16 12:02 91/72 07/12/16 11:50 68 13 07/12/16 11:34 118/74 07/12/16 11:23 36.6 76 16 126/83 95 Physical Exam GENERAL: alert, sitting up in bed, disheveled appearing, well nourished, no distress, non-toxic EYE EXAM: normal conjunctiva OROPHARYNX: no exudate, no erythema, lips, buccal mucosa, and tongue normal and mucous membranes are moist NECK: supple, no nuchal rigidity, no adenopathy, non-tender LUNGS: Clear to auscultation. Normal chest wall mechanics HEART: no murmurs, S1 normal and S2 normal ABDOMEN: abdomen soft, tender to palpation of right lower quadrant and suprapubic region, normo-active bowel sounds, no masses, no rebound or guarding. BACK: Back is symmetrical on inspection and there is no deformity, no midline tenderness, no CVA tenderness. SKIN: no rashes and no bruising UPPER EXTREMITIES: upper extremities are grossly normal. LOWER EXTREMITIES: No pitting edema. NEURO EXAM: Normal sensorium, cranial nerves II-XII grossly intact, normal speech, no gross weakness of arms, no gross weakness of legs. Medical Decision & Procedures ER Provider Diagnostic Interpretation: CT scan: Radiology provided the following report CT Abdomen and Pelvis: The preliminary reading from radiology is the following. ABDOMEN AND PELVIS CT WITH IV CONTRAST CT DOSE: 983.66 mGycm HISTORY: Right lower quadrant abdominal pain. TECHNIQUE: Multiaxial CT images of the abdomen and pelvis were performed following the use of intravenous contrast. COMPARISON STUDY: Abdomen and pelvis CT 02/17/2016. FINDINGS: A few bibasilar linear densities favor subsegmental atelectasis are scarring. Cholecystectomy. The liver, spleen, adrenal glands, and pancreas are unremarkable. A left retroaortic renal vein. Tiny fat-containing umbilical hernia. No hydronephrosis. Stable 7 mm hypodense lesion within the left kidney and the left millimeter lesion within the right kidney. Stable slightly prominent periportal lymph nodes. Normal bladder. Hysterectomy. Focal mild thickening within the mid sigmoid colon with an inflamed diverticulum and surrounding pericolonic fat stranding. This is consistent with acute diverticulitis. No perforation or abscess identified at this time. No evidence for bowel obstruction. Normal appendix. A 9 mm faint nodular opacity within the left lower quadrant omentum on image 232. This is new from the prior study. IMPRESSION: 1. Mild acute sigmoid diverticulitis. No perforation or abscess. 2. Normal appendix. 3. Cholecystectomy. 4. Hysterectomy. 5. A 9 mm faint nodular opacity within the left lower quadrant omentum. This is new from the prior study. This is of uncertain clinical significance. However, if a one month abdomen and pelvis CT follow is recommended to ensure stability. Electronically signed by: Victoriano Virk M.D. 07/12/2016 1:37 PM Dictated Date/Time: 07/12/2016 1:30 PM Laboratory Results 07/12/16 11:55 Red Blood Count 4.75, Mean Corpuscular Volume 92.0, Mean Corpuscular Hemoglobin 30.1, Mean Corpuscular Hemoglobin Concent 32.7, Mean Platelet Volume 10.8, Neutrophils (%) (Auto) 66.9, Lymphocytes (%) (Auto) 21.5, Monocytes (%) (Auto) 10.4, Eosinophils (%) (Auto) 1.0, Basophils (%) (Auto) 0.1, Neutrophils # (Auto ) 5.32, Lymphocytes # (Auto) 1.71, Monocytes # (Auto) 0.83, Eosinophils # (Auto ) 0.08, Basophils # (Auto) 0.01 07/12/16 11:55 Test 07/12/16 11:40 07/12/16 11:55 Urine Color YELLOW Urine Appearance CLEAR (CLEAR) Urine pH 8.5 (4.5-7.5) Urine Specific [place] 1.013 (1.000-1.030) Urine Protein NEG (NEG) Urine Glucose (UA) NEG (NEG) Urine Ketones NEG (NEG) Urine Occult Blood NEG (NEG) Urine Nitrite NEG (NEG) Urine Bilirubin NEG (NEG) Urine Urobilinogen NEG (NEG) Urine Leukocyte Esterase NEG (NEG) Urine WBC (Auto) 0 /hpf (0-5) Urine RBC (Auto) 0-4 /hpf (0-4) Urine Hyaline Casts (Auto) 0 /lpf (0-5) Urine Epithelial Cells (Auto) 10-20 /lpf (0-5) Urine Bacteria (Auto) NEG (NEG) White Blood Count 7.96 K/uL (4.8-10.8) Red Blood Count 4.75 M/uL (4.2-5.4) Hemoglobin 14.3 g/dL (12.0-16.0) Hematocrit 43.7 % (37-47) Mean Corpuscular Volume 92.0 fL (80-100) Mean Corpuscular Hemoglobin 30.1 pg (25-34) Mean Corpuscular Hemoglobin Concent 32.7 g/dl (32-36) Platelet Count 279 K/uL (130-400) Mean Platelet Volume 10.8 fL (7.4-10.4) Neutrophils (%) (Auto) 66.9 % Lymphocytes (%) (Auto) 21.5 % Monocytes (%) (Auto) 10.4 % Eosinophils (%) (Auto) 1.0 % Basophils (%) (Auto) 0.1 % Neutrophils # (Auto) 5.32 K/uL (1.4-6.5) Lymphocytes # (Auto) 1.71 K/uL (1.2-3.4) Monocytes # (Auto) 0.83 K/uL (0.11-0.59) Eosinophils # (Auto) 0.08 K/uL (0-0.5) Basophils # (Auto) 0.01 K/uL (0-0.2) RDW Standard Deviation 46.0 fL (36.4-46.3) RDW Coefficient of Variation 13.6 % (11.5-14.5) Immature Granulocyte % (Auto) 0.1 % Immature Granulocyte # (Auto) 0.01 K/uL (0.00-0.02) Anion Gap 7.0 mmol/L (3-11) Est Creatinine Clear Calc Drug Dose 80.1 ml/min Estimated GFR () 93.4 Estimated GFR (Non- 80.6 BUN/Creatinine Ratio 15.9 (10-20) Calcium Level 9.3 mg/dl (8.5-10.1) Total Bilirubin 0.8 mg/dl (0.2-1) Direct Bilirubin 0.1 mg/dl (0-0.2) Aspartate Amino Transf (AST/SGOT) 17 U/L (15-37) Alanine Aminotransferase (ALT/SGPT) 34 U/L (12-78) Alkaline Phosphatase 95 U/L (45-117) Total Protein 7.8 gm/dl (6.4-8.2) Albumin 4.2 gm/dl (3.4-5.0) Lipase 169 U/L (73-393) Laboratory results per my review. Medications Administered Medications (Trade) Dose Ordered Sig/Medhat Route Start Time Stop Time Status Last Admin Dose Admin Sodium Chloride (Nss 1000ml) 1,000 ml @ 999 mls/hr Q1H1M STAT IV 07/12/16 11:56 07/12/16 12:56 DC 07/12/16 12:02 999 MLS/HR Ondansetron HCl (Zofran Inj) 4 mg NOW STAT IV 07/12/16 11:56 07/12/16 11:57 DC 07/12/16 12:10 4 MG Morphine Sulfate (MoRPHine SULFATE INJ) 6 mg NOW STAT IV 07/12/16 12:38 07/12/16 12:40 DC 07/12/16 12:49 6 MG Ondansetron HCl (Zofran Inj) 4 mg NOW STAT IV 07/12/16 12:38 07/12/16 12:40 DC 07/12/16 12:52 4 MG Al Hydroxide/Mg Hydroxide (Maalox Susp) 30 ml STK-MED ONCE .ROUTE 07/12/16 14:13 07/12/16 14:14 DC 07/12/16 14:14 30 ML Lidocaine HCl (Viscous Lidocaine 2% Soln) 20 ml STK-MED ONCE .ROUTE 07/12/16 14:13 07/12/16 14:14 DC 07/12/16 14:15 20 ML Metronidazole (Flagyl / Nss) 500 mg NOW STAT IV 07/12/16 14:20 07/12/16 14:21 DC 07/12/16 15:44 500 MG Ciprofloxacin 500 mg 500 mg NOW STAT PO 07/12/16 14:20 07/12/16 14:21 DC 07/12/16 15:44 500 MG Sodium Chloride (Nss 500ml) 500 ml @ 999 mls/hr Q31M STAT IV 07/12/16 15:02 07/12/16 15:32 DC 07/12/16 15:25 999 MLS/HR ED Course ED COURSE: Vital signs were reviewed and showed normal vitals. The patients medical record was reviewed The above diagnostic studies were performed and reviewed. ED treatments and interventions as stated above. 1148: The patient was evaluated in room B5. A complete history and physical examination was performed. 1156: Zofran Inj 4 mg IV, Sodium Chloride 1,000 ml @ 999 mls/hr IV. 1238: Zofran Inj 4 mg IV, Morphine Sulfate 6 mg IV. 1401: The patient has burning epigastric pain. She states this feels like previous acid reflex. She denies chest pain. 1403: GI Cocktail 24 ml PO. 1420: Cipro Tab 500 mg PO, Flagy;/ Nss 500 mg IV. 1502: Sodium Chloride 500 ml @ 999 mls/hr IV. 1503: Patient's reflux symptoms have resolved after GI cocktail. 1530: I discussed repeat CT is needed within 2 months to check on nodular finding. 1533: Upon reevaluation, the patient is hemodynamically stable.I discussed my findings with the patient and she understands and agrees with the treatment plan. Based on the patients age, coexisting illnesses, exam and lab findings the decision to treat as an outpatient was made. The patient remained stable while under my care. The patient appeared well at the time of discharge. Medical Decision Differential diagnoses includes but is not limited to gastritis, peptic ulcer disease, GERD, gallbladder disease, pancreatitis, small bowel obstruction, acute coronary syndrome, pericarditis, ischemic bowel, irritable bowel disease, irritable bowel syndrome, appendicitis, diverticulitis, malignancy, hernia, urinary tract infection, torsion, perforation, trauma, infectious. The patient is a 55 year old female who presents to the ED with complaints of abdominal pain. Patient has a previous cholecystectomy and complete hysterectomy. Pain has been present since Friday. On exam she does have tenderness in her infraumbilical region. Labs show no significant leukocytosis or anemia. BMP along with LFTs, bilirubin and lipase is normal. UA was negative. CT of abdomen and pelvis shows diverticulitis along with a small mental lesion of uncertain etiology. I discussed this with radiology and the patient. Radiology recommended a follow-up in 2 months as this is likely just an omental irregularity although it could be cancerous. Patient was given IV Flagyl and oral Cipro. Patient was given pain medications and felt significantly better. She was discharged follow-up with her primary care doctor. Discussed with Pt concerning signs and symptoms to watch out for. Pt was instructed to follow up with their PCP and discussed with the patient their option to return to the ED at anytime for persistent or worsening symptoms. The appropriate anticipatory guidance and out-patient management, including indications for return to the emergency department, were explained at length to the patient and understood. [place] Drug Monitoring Program Search Results: patient reviewed within database Drug Monitoring Findings: Unremarkable findings. Impression Primary Impression: Diverticulitis Scribe Attestation The scribe's documentation has been prepared under my direction and personally reviewed by me in its entirety. I confirm that the note above accurately reflects all work, treatment, procedures, and medical decision making performed by me. Departure Information Dispostion Home / Self-Care Prescriptions Ciprofloxacin Hcl (CIPRO) 500 Mg Tab 500 MG PO BID, #20 TAB Prov: Dewey Beach, DO 07/12/16 Metronidazole (FLAGYL) 500 Mg Tab 1 TAB PO TID for 10 Days, #30 TAB Prov: Dewey Beach, DO 07/12/16 Oxycodone Immediate Rel Tab (ROXICODONE IR) 5 Mg Tab 5 MG PO Q6H Y for Pain, #15 TAB Prov: Dewey Beach, DO 07/12/16 Referrals Vidhi Hairston D.O. (PCP) Forms Call Back Authorization, HOME CARE DOCUMENTATION FORM, IMPORTANT VISIT INFORMATION Patient Instructions ED Diverticulitis, My [facility] Additional Instructions Please follow up with your primary care doctor with in the next 24 hours. Any worsening of your symptoms, please return to the ED immediately. This includes fevers greater than 100.4, persistent nausea vomiting, unable to eat or drink, unable to keep antibiotics down, worsening pain or any other concerning signs or symptoms from your standpoint. Please have a repeat CAT scan of your abdomen with IV contrast for a small 1 cm omental mass in the left lower quadrant. CT should be performed within 1-2 months for follow-up. Please take antibiotics as prescribed. You were given medications during this visit that will inhibit your ability to drive, operate machinery and work. Please do NOT drive, operate machinery or work for the next 12hrs. You were also given a prescription for a narcotic/oxy ir. While taking this medication you should also not drive, operate machinery and or work. Problem Qualifiers Primary Impression: Diverticulitis Diverticulitis site: unspecified part of intestinal tract Diverticulitis bleeding: without bleeding Diverticulitis complication: without perforation or abscess Qualified Codes: K57.92 - Diverticulitis of intestine, part unspecified, without perforation or abscess without bleeding
[2016-07-24] MEDS ORDERED: PROP150T2 PO (13:00)
[2016-07-24] MEDS ORDERED: AMOX875T PO (15:32)
[2016-07-24] MEDS ORDERED: HYDR-5688 PO (15:32)
[2016-09-16] MEDS ORDERED: TRAZ50TA35 PO (08:17)
[2016-09-16] MEDS ORDERED: MELO7.5T5 PO (08:17)
[2016-09-16] MEDS ORDERED: ERGO500037 PO (08:17)
[2016-09-16] MEDS ORDERED: LORA0.5T12 PO (08:17)
[2016-11-04] MEDS ORDERED: TRAM-10 PO (11:03)
[2016-11-04] MEDS ORDERED: CYCL10TA6 PO (11:03)
[2016-11-25] MEDS ORDERED: GABA-113 PO (09:20)
== END 2016-07-12 16:54 | disposition home or self-care (01) ==
LOC: C.EDB 11:21
DX: K57.92 Diverticulitis of intestine, part unspecified, without perforation or abscess without bleeding (principal); I10 Essential (primary) hypertension; Z83.3 Family history of diabetes mellitus; Z82.49 Family history of ischemic heart disease and other diseases of the circulatory system; Z79.82 Long term (current) use of aspirin

== ENCOUNTER 2016-08-02 20:59 | Emergency (ER) | payer BC ==
[~2016-08-02] VITALS: Ht 160 cm; Wt 81.1 kg
[~2016-08-02 20:59] MED LIST changes: +AMOX875T PO; +CIPR-255 PO; -COEN100C3 PO; +COEN100C7 PO; +CRS/10 PO; -CRS10 PO; +HYDR-5688 PO; +MINEOIL26 PO; +OMEG100046 PO; -OMEG1CAP38 PO; -TRAM-10 PO
[2016-08-02 21:01] VITALS: TEMP 36.7; Ht 160 cm; Wt 81.1 kg
[2016-08-02] MEDS ORDERED: ONDANSETRON INJ 2 MG/ML 2 ML VIAL IV STA (21:13)
[2016-08-02] MEDS ORDERED: MoRPHine SULFATE 10 MG/ML CARP/VIAL IV STA (21:13)
[2016-08-02] MEDS ORDERED: OPTIRAY 320 IV PRN (21:15)
[2016-08-02 21:32] LABS: BASO % 0.7 %; BASO ABS # 0.04 K/uL (0-0.2); COMPLETE YES; EOS % 14.2 %; IG% 0.2 %; LYMPH % 48.6 %; MEAN CELL VOLUME 89.5 fL (80-100); MEAN CORPUSCULAR HEMOGLOBIN 28.4 pg (25-34); MEAN CORPUSCULAR HGB CONC 31.7 g/dl (32-36); MEAN PLATELET VOLUME 10.6 fL (7.4-10.4); NEUT % 27.3 %; PLATELET COUNT 277 K/uL (130-400); RED BLOOD COUNT 5.14 M/uL (4.2-5.4); WHITE BLOOD COUNT 5.97 K/uL (4.8-10.8)
[2016-08-02] MEDS ORDERED: HYDR-5688 PO (21:32)
[2016-08-02] MEDS ORDERED: ONDA4TAB46 PO (21:32)
[2016-08-02] MEDS ORDERED: DICY10CA12 PO (21:32)
[2016-08-02] MEDS ORDERED: AMOX875T PO (21:32)
[2016-08-02 21:38] LABS: ISTAT CREATININE 0.8 mg/dl (0.6-1.3); ISTAT HEMOGLOBIN 15.6 g/dl (12.0-16.0); ISTAT IONIZED CALCIUM 1.18 mmol/l (1.12-1.32)
[2016-08-02 21:49] LABS: BUN/CREATININE RATIO 11.5 (10-20); CREATININE 0.84 mg/dl (0.60-1.20); POTASSIUM 3.5 mmol/L (3.5-5.1)
[2016-08-02 21:55] LABS: CALCIUM 9.1 mg/dl (8.5-10.1)
[2016-08-02 22:12] LABS: URINE APPEARANCE CLEAR (CLEAR); URINE BILIRUBIN NEG (NEG); URINE COLOR YELLOW; URINE EPITHELIAL CELL AUTO >30 /lpf (0-5); URINE NITRITE NEG (NEG); URINE SPECIFIC GRAVITY 1.018 (1.000-1.030); UROBILINOGEN NEG (NEG); ZZUR CULT IF INDIC CLEAN CATCH YES
[2016-08-02 22:13] LABS: REVIEW REQ? YES
[2016-08-02 22:14] LABS: MANUAL MICROSCOPIC REQUIRED? NO
--- NOTE | 2016-08-02 22:35 | DIAGNOSTIC IMAGING REPORT ---
ABDOMEN AND PELVIS CT WITH IV CONTRAST CT DOSE: 797.83 mGy.cm HISTORY: Left lower quadrant abdominal pain. TECHNIQUE: Multiaxial CT images of the abdomen and pelvis were performed following the use of intravenous contrast. COMPARISON STUDY: Abdomen and pelvis CT 07/24/2016. FINDINGS: The lung bases are clear. No pneumoperitoneum. No pneumatosis. No suspicious lytic or blastic osseous lesions. Stable 8 mm fat-containing lesion within right hepatic dome. This likely represents a small lipoma. Cholecystectomy. The pancreas, spleen, and adrenal glands are unremarkable. Stable bilateral renal hypodense lesions. The largest on the right measures 1 cm. These favor cysts. No renal stones or hydronephrosis. No retroperitoneal lymphadenopathy. Bladder is not well-distended but appears unremarkable. Hysterectomy. Colonic diverticulosis. No bowel wall thickening or obstruction. Normal appendix. Small fat-containing umbilical hernia. Stable 9 mm faint nodular density within the left lower quadrant omentum on image 240. IMPRESSION: 1. No bowel wall thickening or obstruction. 2. Colonic diverticulosis. 3. No significant change compared to the prior study. 4. Stable 9 mm faint nodular density within the left lower quadrant omentum. Six-month follow-up abdomen and pelvis CT is recommended to ensure stability. Electronically signed by: Victoriano Virk M.D. 08/02/2016 10:15 PM Dictated Date/Time: 08/02/2016 10:06 PM
[2016-08-02] MEDS ORDERED: OXYCODONE IR HOME PACK PO ONE (23:00)
[2016-08-02 23:10] VITALS: BP 101/61; PULSE 55; O2SAT 97
--- NOTE | 2016-08-02 23:32 | EMERGENCY ROOM VISIT NOTE ---
History Report prepared by Srinivasa: Papi Delatorre Under the Supervision of: Dr. Dewey Beach D.O. First contact with patient: 21:05 Chief Complaint: ABDOMINAL PAIN Stated Complaint: PAIN LEFT SIDE (GROIN AREA DOWN) Nursing Triage Summary: pt c/o abd pain from diverticulitis that her new pain pills that she got today is not working for her History of Present Illness The patient is a 55 year old female who presents to the Emergency Room with complaints of constant abdominal beginning three weeks ago. She currently rates her discomfort a 10/10 in severity. The patient states that she was seen in the ER a few weeks ago, where she thought she had diverticulitis. Her records show that the CT scan was negative. She reports that her pain has not stopped since her visit. The patient notes that she has been nauseous, having diarrhea, and having chills. She reports that her diarrhea has lasted the three weeks as well , and she typically has it once a day because she can not eat anything without her symptoms worsening. The patient notes that her last bowel movement was this morning, and it was runny. She states that she went to Dr. Gardner's office and was given medication, but it is not helping. The patient reports that she received medication for her nauseous this morning. She denies vomiting, fever, shortness of breath, and chest pain. The patient states that she has a history of a cholecystectomy and hysterectomy. Source of History: patient Onset: three weeks ago Position: abdomen Symptom Intensity: 10/10 Timing: constant Associated Symptoms: + chills, + nausea, + diarrhea, No fevers, No chest pain, No SOB, No vomiting Review of Systems See HPI for pertinent positives & negatives. A total of 10 systems reviewed and were otherwise negative. Past Medical & Surgical Medical Problems: (1) Appendectomy (2) Benign hypertension (3) Cholecystectomy (4) Hysterectomy (5) Rectal fissure (6) Rectal fistula Family History Diabetes mellitus Hypertension Kidney disease Social History Smoking Status: Never Smoker Alcohol Use: none Drug Use: none Marital Status: Housing Status: lives alone Occupation Status: employed Current/Historical Medications Scheduled Amoxicillin & Pot Clavulanate (Augmentin 875-125 mg), 1 TAB PO BID Aspirin (Aspirin Ec), 81 MG PO DAILY Coenzyme Q10 (Ubidecarenone) (Coq10), 100 MG PO DAILY Dicyclomine Hcl (Dicyclomine Hcl), 1 CAP PO QID Fexofenadine Hcl (Michell Allergy), 1 TAB PO DAILY Methylcellulose (Laxative) (Citrucel Fiber Laxative), 2 TBS PO DAILY Metoprolol Succ (Toprol Xl) (Toprol-Xl), 12.5 MG PO QPM [place]-3 Fatty Acids ([place] 3), 1,200 MG PO AMPM Propafenone HCl (Propafenone HCl), 150 MG PO Q8 Rosuvastatin Calcium (Crestor), 10 MG PO QPM Scheduled PRN Hydrocodone/Acetaminophen 5MG/325MG ([place] 5MG/325MG), 1 TABLET PO Q6H PRN for Pain Mineral Oil (Mineral Oil), 2 TBS PO DAILY PRN for Constipation Ondansetron Hcl (Zofran), 4 MG PO Q6H PRN for Nausea Zolpidem Tartrate (Ambien), 5 MG PO HS PRN for Sleep Allergies Coded Allergies: NSAIDs (Verified Allergy, Unknown, HIVES, PATIENT STATES SHE CAN TAKE ALEVE AND MOTRIN, 08/02/16) Naproxen (Verified Allergy, Unknown, HIVES, 08/02/16) Replaces NAPROXEN SODI Uncoded Allergies: BANDAIDS (Allergy, Unknown, blisters, 05/23/14) Physical Exam Vital Signs Date Time Temp Pulse Resp B/P (MAP) Pulse Ox O2 Delivery O2 Flow Rate FiO2 08/02/16 23:10 55 16 101/61 97 08/02/16 21:01 36.7 78 18 113/75 94 Room Air Physical Exam GENERAL: Sitting up in bed, holding her left lower quadrant, uncomfortable appearing, disheveled EYE EXAM: normal conjunctiva OROPHARYNX: no exudate, no erythema, lips, buccal mucosa, and tongue normal and mucous membranes are moist NECK: supple, no nuchal rigidity, no adenopathy, non-tender LUNGS: Clear to auscultation. Normal chest wall mechanics HEART: no murmurs, S1 normal and S2 normal ABDOMEN: abdomen soft, minimal tenderness in the left lower quadrant, normo- active bowel sounds, no masses, no rebound or guarding. BACK: Back is symmetrical on inspection and there is no deformity, no midline tenderness, no CVA tenderness. SKIN: no rashes and no bruising UPPER EXTREMITIES: upper extremities are grossly normal. LOWER EXTREMITIES: No pitting edema. NEURO EXAM: Normal sensorium, cranial nerves II-XII intact, normal speech, no weakness of arms, no weakness of legs. Medical Decision & Procedures ER Provider Diagnostic Interpretation: CT:Per my review, radiologist interpretation. ABDOMEN AND PELVIS CT WITH IV CONTRAST CT DOSE: 797.83 mGy.cm HISTORY: Left lower quadrant abdominal pain. TECHNIQUE: Multiaxial CT images of the abdomen and pelvis were performed following the use of intravenous contrast. COMPARISON STUDY: Abdomen and pelvis CT 07/24/2016. FINDINGS: The lung bases are clear. No pneumoperitoneum. No pneumatosis. No suspicious lytic or blastic osseous lesions. Stable 8 mm fat-containing lesion within right hepatic dome. This likely represents a small lipoma. Cholecystectomy. The pancreas, spleen, and adrenal glands are unremarkable. Stable bilateral renal hypodense lesions. The largest on the right measures 1 cm. These favor cysts. No renal stones or hydronephrosis. No retroperitoneal lymphadenopathy. Bladder is not well-distended but appears unremarkable. Hysterectomy. Colonic diverticulosis. No bowel wall thickening or obstruction. Normal appendix. Small fat-containing umbilical hernia. Stable 9 mm faint nodular density within the left lower quadrant omentum on image 240. IMPRESSION: 1. No bowel wall thickening or obstruction. 2. Colonic diverticulosis. 3. No significant change compared to the prior study. 4. Stable 9 mm faint nodular density within the left lower quadrant omentum. Six-month follow-up abdomen and pelvis CT is recommended to ensure stability. Electronically signed by: Victoriano Virk M.D. 08/02/2016 10:15 PM Dictated Date/Time: 08/02/2016 10:06 PM Laboratory Results 08/02/16 21:20 Red Blood Count 5.14, Mean Corpuscular Volume 89.5, Mean Corpuscular Hemoglobin 28.4, Mean Corpuscular Hemoglobin Concent 31.7, Mean Platelet Volume 10.6, Neutrophils (%) (Auto) 27.3, Lymphocytes (%) (Auto) 48.6, Monocytes (%) (Auto) 9.0, Eosinophils (%) (Auto) 14.2, Basophils (%) (Auto) 0.7, Neutrophils # (Auto ) 1.63, Lymphocytes # (Auto) 2.90, Monocytes # (Auto) 0.54, Eosinophils # (Auto ) 0.85, Basophils # (Auto) 0.04 08/02/16 21:20 Test 08/02/16 00:00 08/02/16 21:20 08/02/16 21:26 Urine Color YELLOW Urine Appearance CLEAR (CLEAR) Urine pH 5.0 (4.5-7.5) Urine Specific [place] 1.018 (1.000-1.030) Urine Protein NEG (NEG) Urine Glucose (UA) NEG (NEG) Urine Ketones NEG (NEG) Urine Occult Blood NEG (NEG) Urine Nitrite NEG (NEG) Urine Bilirubin NEG (NEG) Urine Urobilinogen NEG (NEG) Urine Leukocyte Esterase SMALL (NEG) Urine WBC (Auto) 1-5 /hpf (0-5) Urine RBC (Auto) 0-4 /hpf (0-4) Urine Hyaline Casts (Auto) 1-5 /lpf (0-5) Urine Epithelial Cells (Auto) >30 /lpf (0-5) Urine Bacteria (Auto) NEG (NEG) Urine Yeast (Auto) PRESENT (NONE PRSENT) White Blood Count 5.97 K/uL (4.8-10.8) Red Blood Count 5.14 M/uL (4.2-5.4) Hemoglobin 14.6 g/dL (12.0-16.0) Hematocrit 46.0 % (37-47) Mean Corpuscular Volume 89.5 fL (80-100) Mean Corpuscular Hemoglobin 28.4 pg (25-34) Mean Corpuscular Hemoglobin Concent 31.7 g/dl (32-36) Platelet Count 277 K/uL (130-400) Mean Platelet Volume 10.6 fL (7.4-10.4) Neutrophils (%) (Auto) 27.3 % Lymphocytes (%) (Auto) 48.6 % Monocytes (%) (Auto) 9.0 % Eosinophils (%) (Auto) 14.2 % Basophils (%) (Auto) 0.7 % Neutrophils # (Auto) 1.63 K/uL (1.4-6.5) Lymphocytes # (Auto) 2.90 K/uL (1.2-3.4) Monocytes # (Auto) 0.54 K/uL (0.11-0.59) Eosinophils # (Auto) 0.85 K/uL (0-0.5) Basophils # (Auto) 0.04 K/uL (0-0.2) RDW Standard Deviation 44.2 fL (36.4-46.3) RDW Coefficient of Variation 13.4 % (11.5-14.5) Immature Granulocyte % (Auto) 0.2 % Immature Granulocyte # (Auto) 0.01 K/uL (0.00-0.02) Est Creatinine Clear Calc Drug Dose 76.3 ml/min Estimated GFR () 90.7 Estimated GFR (Non- 78.2 BUN/Creatinine Ratio 11.5 (10-20) Lactic Acid Level 1.0 mmol/L (0.4-2.0) Calcium Level 9.1 mg/dl (8.5-10.1) Total Bilirubin 0.7 mg/dl (0.2-1) Direct Bilirubin 0.2 mg/dl (0-0.2) Aspartate Amino Transf (AST/SGOT) 29 U/L (15-37) Alanine Aminotransferase (ALT/SGPT) 50 U/L (12-78) Alkaline Phosphatase 67 U/L (45-117) Total Protein 7.5 gm/dl (6.4-8.2) Albumin 4.1 gm/dl (3.4-5.0) Lipase 191 U/L (73-393) Bedside Hemoglobin 15.6 g/dl (12.0-16.0) Bedside Hematocrit 46 % (37-47) Bedside Sodium 141 mEq/L (135-144) Bedside Potassium 3.5 mEq/L (3.3-5.0) Bedside Chloride 103 mEq/L (101-112) Bedside Total CO2 26 mEq/l (24-31) Anion Gap 17.0 mmol/L (16-25) Bedside Blood Urea Nitrogen 9 mg/dl (7-18) Bedside Creatinine 0.8 mg/dl (0.6-1.3) Bedside Glucose (other) 102 mg/dl (70-99) Bedside Ionized Calcium ([place]) 1.18 mmol/l (1.12-1.32) Laboratory results per my review. Medications Administered Medications (Trade) Dose Ordered Sig/Medhat Route Start Time Stop Time Status Last Admin Dose Admin Morphine Sulfate (MoRPHine SULFATE INJ) 6 mg NOW STAT IV 08/02/16 21:13 08/02/16 21:17 DC 08/02/16 21:32 6 MG Ondansetron HCl (Zofran Inj) 4 mg NOW STAT IV 08/02/16 21:13 08/02/16 21:17 DC 08/02/16 21:32 4 MG Oxycodone HCl (Roxicodone Immediate Rel 5MG Home Pack) 1 homepack UD ONCE PO 08/02/16 23:00 08/02/16 23:01 DC 08/02/16 23:10 1 HOMEPACK ED Course ED COURSE: Vital signs were reviewed and showed normal sign. The patients medical record was reviewed The above diagnostic studies were performed and reviewed. ED treatments and interventions as stated above. 2107: The patient was evaluated in room C07. A complete history and physical examination was performed. 2112: Ordered Zofran Inj 4mg IV, Morphine Sulfate 6mg IV 2240: I reevaluated the patient and discussed her exam findings. 0: I discussed the patients case with KULDEEP Stevens. He agreed with having the patient follow up as an outpatient. He did not think there was any additional work-up that needed to be done at the moment. 2299: Ordered Oxycodone HCl 1 homepack PO 2302: Upon reevaluation, the patient is resting and in no distress. I discussed my findings with the patient and she understands and agrees with the treatment plan. Based on the patients age, coexisting illnesses, exam and lab findings the decision to treat as an outpatient was made. The patient remained stable while under my care. The patient appeared well at the time of discharge. Medical Decision Differential diagnoses includes but is not limited to gastritis, peptic ulcer disease, GERD, gallbladder disease, pancreatitis, small bowel obstruction, acute coronary syndrome, pericarditis, ischemic bowel, irritable bowel disease, irritable bowel syndrome, appendicitis, diverticulitis, malignancy, hernia, urinary tract infection, torsion, [/ectopic (if female)], perforation, trauma, infectious. Medication Reconciliation: I attest that I have personally reviewed the patient' s current medication list. Blood pressure screening: Patient was found to have normal blood pressure on screening and does not require follow-up. Patient is a 55-year-old female who presents the ER for left lower quadrant abdominal pain. She notes this has been present for the past several weeks. She's been seen here in the ER on 3 separate occasions. She is initially found to have diverticulitis. Repeat CAT scan in early July was negative. It was discussed with GI who she has followed up with and they recommended antibiotics at that time. She saw Dr. Gardner this past Friday. She was placed on Augmentin again for 2 additional weeks along with Bentyl. CT was repeated tonight and was unremarkable along with CBC, BMP, LFTs and bilirubin. Lipase is negative as well. Lactic acid was negative. UA is present. Prescription was called into pharmacy. I discussed my findings with GI and they agreed with outpatient follow-up. She was discharged with a to go pack of OxyIR. PDMP was reviewed. Discussed with Pt concerning signs and symptoms to watch out for. Pt was instructed to follow up with their PCP and discussed with the patient their option to return to the ED at anytime for persistent or worsening symptoms. The appropriate anticipatory guidance and out-patient management, including indications for return to the emergency department, were explained at length to the patient and understood. Consults Time Called: [phone] Consulting Physician: KULDEEP Stevens Returned Call: [phone] I discussed the patients case with KULDEEP Stevens. He agreed with having the patient follow up as an outpatient. He did not think there was any additional work-up that needed to be done at the moment. Impression Primary Impression: LLQ abdominal pain Additional Impression: Yeast UTI Scribe Attestation The scribe's documentation has been prepared under my direction and personally reviewed by me in its entirety. I confirm that the note above accurately reflects all work, treatment, procedures, and medical decision making performed by me. Departure Information Dispostion Home / Self-Care Referrals Vidhi Hairston D.O. (PCP) Forms Call Back Authorization, HOME CARE DOCUMENTATION FORM, IMPORTANT VISIT INFORMATION Patient Instructions Abdominal Pain - [facility], [facility] Additional Instructions Please follow up with your primary care doctor with in the next 24 hours. Any worsening of your symptoms, please return to the ED immediately. This includes worsening pain, fevers greater than 100.4, persistent nausea vomiting, bloody stool, or any other concerning signs or symptoms from your standpoint. Please follow up with GI on Friday or Friday morning. You were given medications during this visit that will inhibit your ability to drive, operate machinery and work. Please do NOT drive, operate machinery or work for the next 12hrs. You were also given a prescription for a narcotic/oxy IR. While taking this medication you should also not drive, operate machinery and or work. Problem Qualifiers
[2016-09-16] MEDS ORDERED: ERGO500037 PO (08:17)
[2016-09-16] MEDS ORDERED: TRAZ50TA35 PO (08:17)
[2016-09-16] MEDS ORDERED: MELO7.5T5 PO (08:17)
[2016-09-16] MEDS ORDERED: LORA0.5T12 PO (08:17)
[2016-11-04] MEDS ORDERED: TRAM-10 PO (11:03)
[2016-11-04] MEDS ORDERED: CYCL10TA6 PO (11:03)
[2016-11-25] MEDS ORDERED: GABA-113 PO (09:20)
== END 2016-08-02 23:12 | disposition home or self-care (01) ==
LOC: C.EDB 21:01 → C.EDC 23:12
DX: R10.32 Left lower quadrant pain (principal); B37.49 Other urogenital candidiasis; I10 Essential (primary) hypertension; Z90.710 Acquired absence of both cervix and uterus; Z79.82 Long term (current) use of aspirin; Z83.3 Family history of diabetes mellitus; Z82.49 Family history of ischemic heart disease and other diseases of the circulatory system

== ENCOUNTER 2016-08-15 13:24 | Emergency (ER) | payer BC ==
[~2016-08-15] VITALS: Ht 160 cm; Wt 79.1 kg
[~2016-08-15 13:24] MED LIST changes: -CIPR-255 PO; +DICY10CA12 PO; +ONDA4TAB46 PO; -PROP150T2 PO; +RYT150 PO
[2016-08-15 13:26] VITALS: TEMP 36.5; Ht 160 cm; Wt 79.1 kg
[2016-08-15] MEDS ORDERED: ONDANSETRON INJ 2 MG/ML 2 ML VIAL IV PRN (13:45)
[2016-08-15] MEDS ORDERED: HYDROmorphone INJ 1 MG/ML SYR IV PRN (13:45)
[2016-08-15 13:53] LABS: URINE APPEARANCE CLEAR (CLEAR); URINE BILIRUBIN NEG (NEG); URINE COLOR YELLOW; URINE NITRITE NEG (NEG); URINE PH 5.5 (4.5-7.5); URINE SPECIFIC GRAVITY 1.014 (1.000-1.030); UROBILINOGEN NEG (NEG); ZZUR CULT IF INDIC CLEAN CATCH NO
[2016-08-15 13:55] LABS: MANUAL MICROSCOPIC REQUIRED? NO; REVIEW REQ? NO
--- NOTE | 2016-08-15 13:55 | EMERGENCY ROOM VISIT NOTE ---
History Report prepared by Srinivasa: Sylvia Ferguson Under the Supervision of: Dr. Kaden Sterling M.D. 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 The patient was diagnosed with diverticulitis 1.5 months ago. She was taking antibiotics for that. She finished taking Cipro, Augmentin, Flagyl, and Bactrim six days ago. She states that she has had no improvement of her symptoms since completing the antibiotics. The patient had a CT scan 2 weeks ago that showed the diverticulitis had resolved. Her physician was concerned that she may have an infection in her colon from the antibiotics. The patient reports LLQ abdominal pain into her left flank. She states that it feels like the pain she was having with her diverticulitis. She describes her pain as stabbing and rates her current pain as a 10/10 in severity. She is also feeling nauseated. The patient was constipated yesterday so she took MiraLAX. She has been having watery diarrhea since last night. She states that she is no longer taking any medications for pain. 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 Please see Additional Medical History Sheet. Past Medical & Surgical Medical Problems: (1) Appendectomy (2) Benign hypertension (3) Cholecystectomy (4) Hysterectomy (5) Rectal fissure (6) Rectal fistula Family History Diabetes mellitus Hypertension Kidney disease Social History Smoking Status: Never Smoker Alcohol Use: none Drug Use: none Marital Status: Housing Status: lives alone Occupation Status: employed Current/Historical Medications Scheduled Aspirin (Aspirin Ec), 81 MG PO DAILY Coenzyme Q10 (Ubidecarenone) (Coq10), 100 MG PO DAILY Fexofenadine Hcl (Michell Allergy), 180 MG PO DAILY Methylcellulose (Laxative) (Citrucel Fiber Laxative), 2 TBS PO DAILY Metoprolol Succ (Toprol Xl) (Toprol-Xl), 12.5 MG PO QPM [place]-3 Fatty Acids ([place] 3), 1,200 MG PO AMPM Probiotic Product (Probiotic), 1 CAP PO DAILY Propafenone HCl (Propafenone HCl), 150 MG PO Q8 Rosuvastatin Calcium (Crestor), 10 MG PO QPM Scheduled PRN Mineral Oil (Mineral Oil), 2 TBS PO DAILY PRN for Constipation Zolpidem Tartrate (Ambien), 5 MG PO HS PRN for Sleep Allergies Coded Allergies: NSAIDs (Verified Allergy, Unknown, HIVES, PATIENT STATES SHE CAN TAKE ALEVE AND MOTRIN, 08/15/16) Naproxen (Verified Allergy, Unknown, HIVES, 08/15/16) Replaces NAPROXEN SODI Uncoded Allergies: BANDAIDS (Allergy, Unknown, blisters, 05/23/14) Physical Exam Vital Signs Date Time Temp Pulse Resp B/P (MAP) Pulse Ox O2 Delivery O2 Flow Rate FiO2 08/15/16 15:13 81 16 108/68 92 Room Air 08/15/16 14:31 72 20 114/66 95 Room Air 08/15/16 13:26 36.5 107 20 131/81 94 Room Air Physical Exam GENERAL: Patient awake, alert, oriented x 3. Patient appears to be in moderate to severe distress and tearful. Patient follows commands. Patient does not appear toxic. Patient is adequately hydrated and well-nourished. SKIN: No erythema, pallor, cyanosis or rash HEENT: Normal head, pupils equal, reactive to light and accommodation. Ears normal. Oral cavity and posterior pharynx appear normal. Neck: Without adenopathy, no neck vein distention. LUNGS: Clear to auscultation. No wheezes, no rales, no rhonchi. HEART: No murmurs. No gallops. No rubs ABDOMEN: LLQ abdominal tenderness, no rebound or guarding. No masses, no rebound , no hepatomegaly or splenomegaly. EXTREMITIES: No signs of trauma. No pedal or pretibial edema. No calf or thigh tenderness. NEUROLOGIC: Cranial nerves II-XII within normal limits. No gross motor sensory function deficits. Medical Decision & Procedures Laboratory Results 08/15/16 13:50 Red Blood Count 4.70, Mean Corpuscular Volume 90.6, Mean Corpuscular Hemoglobin 30.2, Mean Corpuscular Hemoglobin Concent 33.3, Mean Platelet Volume 10.5, Neutrophils (%) (Auto) 42.9, Lymphocytes (%) (Auto) 38.8, Monocytes (%) (Auto) 10.2, Eosinophils (%) (Auto) 7.2, Basophils (%) (Auto) 0.7, Neutrophils # (Auto ) 1.98, Lymphocytes # (Auto) 1.79, Monocytes # (Auto) 0.47, Eosinophils # (Auto ) 0.33, Basophils # (Auto) 0.03 08/15/16 13:50 Test 08/15/16 13:40 08/15/16 13:50 Urine Color YELLOW Urine Appearance CLEAR (CLEAR) Urine pH 5.5 (4.5-7.5) Urine Specific [place] 1.014 (1.000-1.030) Urine Protein NEG (NEG) Urine Glucose (UA) NEG (NEG) Urine Ketones NEG (NEG) Urine Occult Blood NEG (NEG) Urine Nitrite NEG (NEG) Urine Bilirubin NEG (NEG) Urine Urobilinogen NEG (NEG) Urine Leukocyte Esterase NEG (NEG) White Blood Count 4.61 K/uL (4.8-10.8) Red Blood Count 4.70 M/uL (4.2-5.4) Hemoglobin 14.2 g/dL (12.0-16.0) Hematocrit 42.6 % (37-47) Mean Corpuscular Volume 90.6 fL (80-100) Mean Corpuscular Hemoglobin 30.2 pg (25-34) Mean Corpuscular Hemoglobin Concent 33.3 g/dl (32-36) Platelet Count 238 K/uL (130-400) Mean Platelet Volume 10.5 fL (7.4-10.4) Neutrophils (%) (Auto) 42.9 % Lymphocytes (%) (Auto) 38.8 % Monocytes (%) (Auto) 10.2 % Eosinophils (%) (Auto) 7.2 % Basophils (%) (Auto) 0.7 % Neutrophils # (Auto) 1.98 K/uL (1.4-6.5) Lymphocytes # (Auto) 1.79 K/uL (1.2-3.4) Monocytes # (Auto) 0.47 K/uL (0.11-0.59) Eosinophils # (Auto) 0.33 K/uL (0-0.5) Basophils # (Auto) 0.03 K/uL (0-0.2) RDW Standard Deviation 46.0 fL (36.4-46.3) RDW Coefficient of Variation 13.9 % (11.5-14.5) Immature Granulocyte % (Auto) 0.2 % Immature Granulocyte # (Auto) 0.01 K/uL (0.00-0.02) Anion Gap 6.0 mmol/L (3-11) Est Creatinine Clear Calc Drug Dose 80.1 ml/min Estimated GFR () 97.7 Estimated GFR (Non- 84.3 BUN/Creatinine Ratio 12.8 (10-20) Calcium Level 9.3 mg/dl (8.5-10.1) Total Bilirubin 0.8 mg/dl (0.2-1) Aspartate Amino Transf (AST/SGOT) 27 U/L (15-37) Alanine Aminotransferase (ALT/SGPT) 50 U/L (12-78) Alkaline Phosphatase 72 U/L (45-117) Total Protein 7.3 gm/dl (6.4-8.2) Albumin 4.0 gm/dl (3.4-5.0) Globulin 3.3 gm/dl (2.5-4.0) Albumin/Globulin Ratio 1.2 (0.9-2) Lipase 209 U/L (73-393) Laboratory results as stated above per my review. Medications Administered Medications (Trade) Dose Ordered Sig/Medhat Route Start Time Stop Time Status Last Admin Dose Admin Hydromorphone HCl (Dilaudid Inj) 1 mg Q1HWA PRN IV 08/15/16 13:45 08/29/16 13:44 08/15/16 14:32 1 MG Ondansetron HCl (Zofran Inj) 4 mg Q1HWA PRN IV 08/15/16 13:45 09/14/16 13:44 08/15/16 14:32 4 MG ED Course 1336: Past medical records reviewed. The patient was evaluated in room A2. A complete history and physical examination was performed. 1345: Zofran 4 mg IV - PRN, Dilaudid 1 mg IV - PRN 1438: I updated the patient on her results. She is resting more comfortably. 1518: I spoke with Dr. Guevara of GI. We discussed the patient's case. He recommends Bentyl or Levsin. He recommends against giving the patient narcotics or benzodiazepines. They will follow-up with the patient in the office. 1522: I updated the patient on my discussion with Dr. Guevara. Medical Decision Differential diagnoses includes diverticulitis, kidney stone, Crohn's disease, ulcerative colitis, C-Diff, metabolic disorder, anxiety, depression. He patient's use left lower quadrant abdominal pain. The patient has had a significant workup in the recent past including 3 CTs of her abdomen/pelvis. The patient is currently on no medication for her abdomen. She was recently treated with multiple antibiotics for diverticulitis. Multiple labs and urinalysis were obtained today. Please see above. The patient does not have an elevation of her white count. Electrolytes are within normal range. Lipase is not elevated. I discussed care with Dr. Guevara over the phone. The patient will be started on Levsin. She is to follow-up with GI. Medication Reconciliation: I attest that I have personally reviewed the patient' s current medication list. Blood pressure Screening: Patient was found to have normal blood pressure on screening and does not require follow up. Consults Time Called: [phone] Consulting Physician: Dr. Guevara Returned Call: [phone] Guevara of GI. We discussed the patient's case. He recommends Bentyl or Levsin. He recommends against giving the patient narcotics or benzodiazepines. They will follow-up with the patient in the office. Impression Primary Impression: Left lower quadrant abdominal pain of unknown etiology Scribe Attestation The scribe's documentation has been prepared under my direction and personally reviewed by me in its entirety. I confirm that the note above accurately reflects all work, treatment, procedures, and medical decision making performed by me. Departure Information Dispostion Home / Self-Care Prescriptions Hyoscyamine Sulfate (LEVSIN) 0.125 Mg Tab 1 TAB PO Q6 Y for abdominal pain for 20 Days, #40 TAB 5 Refills Prov: Kaden Sterling M.D. 08/15/16 Referrals Vidhi Hairston D.O. (PCP) Patient Instructions My [facility] Additional Instructions 1 Levsin every 6 hours as needed for abdominal pain. Follow-up appointment with gastroenterology within the next 10 days.
[2016-08-15] MEDS ORDERED: MISCCAP80 PO (14:00)
[2016-08-15 14:04] LABS: BASO % 0.7 %; BASO ABS # 0.03 K/uL (0-0.2); COMPLETE YES; EOS % 7.2 %; HEMATOCRIT 42.6 % (37-47); IG% 0.2 %; LYMPH % 38.8 %; LYMPH ABS # 1.79 K/uL (1.2-3.4); MEAN CELL VOLUME 90.6 fL (80-100); MEAN CORPUSCULAR HEMOGLOBIN 30.2 pg (25-34); MEAN CORPUSCULAR HGB CONC 33.3 g/dl (32-36); MEAN PLATELET VOLUME 10.5 fL (7.4-10.4); MONO % 10.2 %; NEUT % 42.9 %; PLATELET COUNT 238 K/uL (130-400); WHITE BLOOD COUNT 4.61 K/uL (4.8-10.8)
[2016-08-15 14:21] LABS: BUN/CREATININE RATIO 12.8 (10-20); CALCIUM 9.3 mg/dl (8.5-10.1); CREATININE 0.79 mg/dl (0.60-1.20); POTASSIUM 3.7 mmol/L (3.5-5.1)
[2016-08-15 14:24] LABS: ALB/GLOB RATIO 1.2 (0.9-2)
[2016-08-15] MEDS ORDERED: HYOS0.1255 PO (15:29)
[2016-08-15 16:11] VITALS: BP 109/64; PULSE 69; O2SAT 95
[2016-09-16] MEDS ORDERED: MELO7.5T5 PO (08:17)
[2016-09-16] MEDS ORDERED: ERGO500037 PO (08:17)
[2016-09-16] MEDS ORDERED: LORA0.5T12 PO (08:17)
[2016-09-16] MEDS ORDERED: TRAZ50TA35 PO (08:17)
[2016-11-04] MEDS ORDERED: CYCL10TA6 PO (11:03)
[2016-11-04] MEDS ORDERED: TRAM-10 PO (11:03)
[2016-11-25] MEDS ORDERED: GABA-113 PO (09:20)
== END 2016-08-15 16:12 | disposition home or self-care (01) ==
LOC: C.EDB 13:25 → C.EDA 16:12
DX: R10.32 Left lower quadrant pain (principal); I10 Essential (primary) hypertension; Z83.3 Family history of diabetes mellitus; Z82.49 Family history of ischemic heart disease and other diseases of the circulatory system; Z79.82 Long term (current) use of aspirin

== ENCOUNTER → 2016-08-23 | Outpatient (CLI) | payer BC ==
[~2016-08-23] MED LIST changes: +AMB10 PO; -AMOX875T PO; +CYCL10TA6 PO; +DIAZ2TAB PO; -DICY10CA12 PO; +ERGO500037 PO; +GABA-113 PO; +GADAVIST IV PRN; -HYDR-5688 PO; +HYOS0.1255 PO; +LORA0.5T12 PO; +MELO7.5T5 PO; +MISCCAP80 PO; -ONDA4TAB46 PO; +TRAM-10 PO; +TRAZ50TA35 PO
--- NOTE | 2016-08-23 18:50 | DIAGNOSTIC IMAGING REPORT ---
MRI OF THE ABDOMEN COMBO CLINICAL HISTORY: Follow-up right renal lesion. COMPARISON STUDY: Abdominal CT dated 08/02/2016. TECHNIQUE: MRI of the abdomen is performed transverse T1 and T2-weighted sequences in the axial and coronal planes. Contrast enhanced sequences were acquired following the IV administration of 7.5 cc of Gadavist. Subtraction imaging was utilized. FINDINGS: Lower chest: No pleural effusion is identified. The heart is normal in size. Liver: The liver is top normal in size and normal in contour. The liver demonstrates diffuse drop in signal intensity on the opposed phase images consistent with hepatic steatosis. Mild central intrahepatic biliary ductal dilatation is seen. The hepatic veins and portal veins are patent. Gallbladder: Surgically absent. Spleen: Normal in size and signal intensity. Pancreas: Unremarkable. Adrenal glands: Unremarkable. Kidneys: The kidneys are normal in size and without hydronephrosis. The kidneys enhance symmetrically. There are small bilateral renal cysts (less than 5). The largest is on the right and measures up to 1.3 cm. No enhancing renal lesion is identified. A retroaortic left renal vein is incidentally noted. Abdominal aorta: Normal in course and caliber. Bowel: Visualized portions of the small bowel and colon show no evidence of obstruction. Peritoneum: There is no abdominal ascites. Lymphadenopathy: None. Skeletal structures: Visualized skeletal structures times are normal marrow signal intensity. IMPRESSION: 1. There are small bilateral renal cysts. The largest is in the right kidney and measures 1.3 cm. This corresponds to the lesion questioned by CT. 2. No enhancing renal mass is seen. 3. Mild hepatic steatosis Electronically signed by: Jimmy Velazquez M.D. 08/23/2016 6:49 PM Dictated Date/Time: 08/23/2016 6:42 PM
== END | disposition home or self-care (01) ==
LOC: C.MRI 15:47
PROVIDERS: ATTEND Nurse Practitioner Family
DX: N28.9 Disorder of kidney and ureter, unspecified (principal)

== ENCOUNTER → 2016-08-27 | Outpatient (CLI) | payer BC ==
[~2016-08-27] MED LIST changes: -GADAVIST IV PRN
--- NOTE | 2016-08-27 13:35 | DIAGNOSTIC IMAGING REPORT ---
L-SPINE MIN 4 VIEWS ROUTINE HISTORY:56 yearsFemaleCHRONIC ABD PAIN COMPARISON: CT abdomen and pelvis 08/02/2016 TECHNIQUE: 5 radiographic views of the lumbar spine. FINDINGS: Hypoplastic ribs at are seen in L1. There is moderate to severe intervertebral disc space narrowing at L4-L5 and L5-S1 with moderate facet arthropathy. No spondylolysis or spondylolisthesis. No compression deformity. No acute fracture or dislocation. Prior cholecystectomy. No nephrolithiasis or bowel obstruction. IMPRESSION: 1. No acute fracture or dislocation of the lumbar spine. 2. Moderate to severe intervertebral disc space narrowing with moderate facet arthropathy at L4-L5 and L5-S1. The above report was generated using voice recognition software. It may contain grammatical, syntax or spelling errors. Electronically signed by: Garret Justin M.D. 08/27/2016 1:33 PM Dictated Date/Time: 08/27/2016 1:30 PM
== END | disposition home or self-care (01) ==
LOC: C.RAD 13:09
PROVIDERS: ATTEND Family Medicine
DX: M51.37 Other intervertebral disc degeneration, lumbosacral region (principal); R10.9 Unspecified abdominal pain

== ENCOUNTER 2016-09-03 15:23 | Emergency (ER) | payer BC ==
[~2016-09-03] VITALS: Ht 160 cm; Wt 75.0 kg
[~2016-09-03 15:23] MED LIST changes: -AMB10 PO; -CYCL10TA6 PO; -DIAZ2TAB PO; -ERGO500037 PO; -GABA-113 PO; -LORA0.5T12 PO; -MELO7.5T5 PO; -TRAM-10 PO; -TRAZ50TA35 PO
[2016-09-03 15:25] VITALS: TEMP 36.5; Ht 160 cm; Wt 75.0 kg
[2016-09-03] MEDS ORDERED: AMB10 PO (16:11)
[2016-09-03] MEDS ORDERED: NURSING VERBAL MED ORDER ONE (18:00)
[2016-09-03] MEDS ORDERED: DIAZEPAM 2MG TAB PO ONE (18:00)
[2016-09-03] MEDS ORDERED: DIAZ2TAB PO (18:01)
[2016-09-03 18:30] VITALS: BP 126/84; PULSE 76; O2SAT 94
--- NOTE | 2016-09-03 19:12 | EMERGENCY ROOM VISIT NOTE ---
ED Visit Note First contact with patient: 15:31 56-year-old female presented from her PCPs office with complaints of left lower quadrant pain which had initially started in June 2016 that had worsened for the last few days. She complains of severe stabbing left lower quadrant pain which is waxing and waning, about 6/10 in severity and worse at 10 /10 with radiation to the groin. Denies any nausea or vomiting, diarrhea or constipation, fevers or chills. Her pain is usually worse later in the afternoon. She has had several ER visits for the same pain and had several imaging studies including 3 CT scans and most recently an MRI of her abdomen and pelvis. She stated that a few years ago she had similar pain and was treated with an injection. She has a history of diverticulitis which was treated with antibiotics. She also has a history of laparoscopic hysterectomy and oophorectomy and a remote history of cholecystectomy and PMH: Hypertension, atrial fibrillation PSH: laparoscopic hysterectomy and oophorectomy SH: denies smoking, alcohol, substance abuse. PE: Awake, alert and oriented Well-developed well-nourished, anxious and tearful HEENT: No acute trauma, normocephalic atraumatic, mucous membranes moist, no nasal congestion, no scleral icterus. NECK: No stridor, no adenopathy, no meningismus, trachea is midline. LUNGS: Clear to auscultation bilaterally, no wheeze, no rhonchi, breath sounds equal. HEART: Without murmurs gallops or rubs, regular rate and rhythm. ABDOMEN: Soft, tenderness in LLQ, bowel sounds positive. EXTREMITIES: No cyanosis or edema, some tenderness along left thigh area NEUROLOGIC: Oriented x 3, no acute motor or sensory deficits, no focal weakness. SKIN: No rash, no jaundice, no diaphoresis. A/P: 56-year-old female presented from her PCPs office with complaints of left lower quadrant pain which had initially started in June 2016 that had worsened for the last few days. She had several imaging studies including 3 CAT scans and most recently an MRI for evaluating her left lower quadrant pain and has been negative. She has had several ER visits with similar complaints and was also treated with prednisone since last week by her PCP. The patient appeared very tearful and was very frustrated with her pain. The left lower quadrant abdominal pain could be secondary to hip flexor muscle spasm. She was prescribed 2 mg of Valium to be taken every 8 hours as needed. She was recommended to follow-up with sports medicine. Resident Physician Supervision Note: I was present with Dr. Torres during the history and exam. I discussed the case with the resident and agree with the findings and plan as documented in the note. Any exceptions or clarifications are listed here. 1.5 months of LLQ pain without apparent causation on imaging and with minimal response to steroid therapy. Has appt w/ pain mgmt at the end of the month. Significant anxiety/depression component 2/2 persistent symptoms and failed work ups. Present examination shows TTP along the left medial thigh adductor muscles which continues proximally and cross the hip at which point it reproduces the pain. Will trial for treatment of MSK spasm at this time w/ Valium and close f/u w/ [facility] to verify the diagnosis. Resident Tracking Resident Involvement: Resident Care Provided Care Provided: Adult Hospital Medicine
[2016-09-16] MEDS ORDERED: LORA0.5T12 PO (08:17)
[2016-09-16] MEDS ORDERED: TRAZ50TA35 PO (08:17)
[2016-09-16] MEDS ORDERED: MELO7.5T5 PO (08:17)
[2016-09-16] MEDS ORDERED: ERGO500037 PO (08:17)
[2016-11-04] MEDS ORDERED: CYCL10TA6 PO (11:03)
[2016-11-04] MEDS ORDERED: TRAM-10 PO (11:03)
[2016-11-25] MEDS ORDERED: GABA-113 PO (09:20)
== END 2016-09-03 18:30 | disposition home or self-care (01) ==
LOC: C.EDB 15:24
DX: R10.32 Left lower quadrant pain (principal); I10 Essential (primary) hypertension; Z90.710 Acquired absence of both cervix and uterus

== ENCOUNTER → 2016-09-04 | Outpatient (CLI) | payer BC ==
[~2016-09-04] MED LIST changes: +AMB10 PO; +CYCL10TA6 PO; +DIAZ2TAB PO; +ERGO500037 PO; +GABA-113 PO; -HYOS0.1255 PO; +LORA0.5T12 PO; +MELO7.5T5 PO; -METHPOW7 PO; +TRAM-10 PO; +TRAZ50TA35 PO; -ZOLP5TAB PO
--- NOTE | 2016-09-04 15:16 | DIAGNOSTIC IMAGING REPORT ---
AP PELVIS AND LEFT HIP 3 VIEWS CLINICAL HISTORY: LEFT GROIN PAIN COMPARISON: None. DISCUSSION: Degenerative changes are present within the lower lumbar spine. There is a surgical clips in the left hemipelvis. There are no fractures. There are no dislocations. There are no erosive or destructive changes. IMPRESSION: 1. No fractures identified 2. No erosive or destructive changes are visualized Electronically signed by: Izaiah Aceves M.D. 09/04/2016 3:15 PM Dictated Date/Time: 09/04/2016 3:14 PM
== END | disposition home or self-care (01) ==
LOC: C.RDSM 15:09
PROVIDERS: ATTEND Family Medicine
DX: R10.30 Lower abdominal pain, unspecified (principal)

== ENCOUNTER → 2016-09-19 | Outpatient (CLI) | payer BC ==
[~2016-09-19] VITALS: Ht 160 cm; Wt 79.0 kg
[~2016-09-19] MED LIST changes: -AMB10 PO; -DIAZ2TAB PO
[2016-09-19 10:12] VITALS: BP 107/71; PULSE 76; Ht 160 cm; Wt 79.0 kg
== END | disposition home or self-care (01) ==
LOC: C.NEUR 09:21
PROVIDERS: ATTEND Internal Medicine Pulmonary Disease
DX: G47.00 Insomnia, unspecified (principal); F41.1 Generalized anxiety disorder

== ENCOUNTER → 2016-11-11 | Outpatient (CLI) | payer BC ==
--- NOTE | 2016-11-11 14:45 | DIAGNOSTIC IMAGING REPORT ---
R HIP UNILATERAL 2 VIEWS CLINICAL HISTORY: LUMBAR, R HIP PAIN pain COMPARISON: 09/15/2006 DISCUSSION: Mild degenerative narrowing right hip joint space. Minimal acetabular peripheral osteophytic reaction. No evidence for acetabular protrusion. No abnormal periosteal reaction. There is no evidence for soft tissue swelling. IMPRESSION: Minimal/mild degenerative narrowing right hip joint space. Otherwise negative study. The above report was generated using voice recognition software. It may contain grammatical, syntax or spelling errors. Electronically signed by: Gunner Cortes M.D. 11/11/2016 2:44 PM Dictated Date/Time: 11/11/2016 2:43 PM
--- NOTE | 2016-11-11 14:47 | DIAGNOSTIC IMAGING REPORT ---
L-SPINE MIN 4 VIEWS ROUTINE CLINICAL HISTORY: 56 years-old Female presenting with LOWER BACK PAIN. TECHNIQUE: Frontal, bilateral oblique, lateral, and coned in lateral views lumbar spine were obtained. COMPARISON: 08/27/2016. FINDINGS: Normal lumbar lordosis. Vertebral body heights and alignment maintained. Intervertebral disc height loss at L4-5. Osseous neural foraminal narrowing on the right at L4-5 may be present. Less significant degenerative change suggested at L5-S1, where there is facet arthropathy. No radiographic evidence of fracture or subluxation. Cholecystectomy clips noted. Moderate stool burden in the left: There is no gross pneumoperitoneum. Lung bases clear. IMPRESSION: Focal degenerative change most severe at L4-5 with possible osseous neural foraminal narrowing on the right. No radiographic evidence of acute osseous injury. Electronically signed by: Guanakito Earl M.D. 11/11/2016 2:45 PM Dictated Date/Time: 11/11/2016 2:41 PM
== END | disposition home or self-care (01) ==
LOC: C.RADBC 14:16
PROVIDERS: ATTEND Physician Assistant
DX: M54.5 Low back pain (principal); M25.551 Pain in right hip

== ENCOUNTER → 2016-12-02 | Outpatient (CLI) | payer BC ==
--- NOTE | 2016-12-03 07:04 | DIAGNOSTIC IMAGING REPORT ---
MRI OF THE LUMBAR SPINE WITHOUT CONTRAST CLINICAL HISTORY: Lumbar spine pain. Severe right groin and leg pain. Recent injury. COMPARISON STUDY: MRI of the lumbar spine April 24, 2012 and lumbar spine radiograph November 11, 2016. TECHNIQUE: Utilizing a 1.5 Keila magnet and dedicated coil, multiplanar, multiecho imaging of the lumbar spine was performed without IV contrast. FINDINGS: For purposes of numbering on this exam, the L5-S1 disc space is assigned to axial image 28 of 30. Alignment of the lumbar spine is anatomic. Vertebral body heights are maintained. There is no marrow edema or marrow replacement. Discogenic changes are noted at several levels. There is no intracanalicular mass or fluid collection. Conus terminates at the L1-L2 level. L1-2: The central canal and neural foramen are patent. L2-3: There is mild disc bulge with a small central disc protrusion. The central canal and neural foramen are patent. L3-4: There is a left paracentral disc protrusion with mild superior subligamentous migration which is new since exam of April 24, 2012. This results in mild narrowing of the left lateral recess. The neural foramen are patent. L4-5: There is disc space narrowing with disc bulge and a right paracentral disc protrusion which results in moderate narrowing of the right lateral recess and mild narrowing of the central canal. The neural foramen are patent. L5-S1: There is disc bulge with central annular tear and a central disc protrusion that results in minimal narrowing of the central canal and mild narrowing of the right lateral recess. There is mild narrowing of the right neural foramen. IMPRESSION: 1. Mild multilevel central canal stenosis, as detailed above. Moderate multilevel degenerative disc disease and facet arthrosis with progression since exam of April 24, 2012. 2. Right paracentral disc protrusion at L4-L5 results in moderate narrowing of the right lateral recess. 3. Left paracentral disc protrusion with mild superior subligamentous migration at L3-L4 that results in mild narrowing of the left lateral recess. Electronically signed by: Kike Brower M.D. 12/03/2016 7:03 AM Dictated Date/Time: 12/02/2016 5:43 PM
== END | disposition home or self-care (01) ==
LOC: C.MRIBC 16:14
PROVIDERS: ATTEND Physician Assistant
DX: M54.16 Radiculopathy, lumbar region (principal)

== ENCOUNTER → 2017-03-06 | Outpatient (CLI) | payer OTHER | END | disposition home or self-care (01) | LOC: C.RADBC 15:55 | DX: M54.2 Cervicalgia (principal) ==

== ENCOUNTER → 2017-03-07 | Outpatient (CLI) | payer OTHER ==
[~2017-03-07] MED LIST changes: -COEN100C7 PO; -CRS/10 PO; -CYCL10TA6 PO; -ERGO500037 PO; -LORA0.5T12 PO; -MELO7.5T5 PO; -MINEOIL26 PO; -MISCCAP80 PO; -OMEG100046 PO; +OPTIRAY 320 IV PRN; +PROP150T2 PO; -RYT150 PO; -TRAM-10 PO; -TRAZ50TA35 PO
--- NOTE | 2017-03-07 09:32 | DIAGNOSTIC IMAGING REPORT ---
CT ABD/PELVIS IV CONTRAST ONLY CLINICAL HISTORY: Omental mass COMPARISON STUDY: 08/02/2016 TECHNIQUE: Following the IV administration of 93 mL of Optiray-320, CT scan of the abdomen and pelvis was performed from the lung bases to the proximal femurs. Images are reviewed in the axial, sagittal, and coronal planes. IV contrast was administered without complication. A dose lowering technique was utilized adhering to the principles of ALARA. CT DOSE: 1156.64 mGy.cm FINDINGS: Lower chest: There is minor basilar atelectasis Liver: There is a stable 7 mm hypodensity within the right lobe of the liver at the level the hepatic dome Gallbladder: Surgically absent Spleen: There is a stable 3 mm splenic hypodensity of doubtful acute clinical significance Pancreas: Unremarkable. Adrenal glands: Unremarkable. Kidneys: There is a stable 13 mm right renal cyst Bowel: There are no transition zones indicate bowel obstruction. The appendix appears normal. There is no acute diverticulitis. Peritoneum: There is no intraperitoneal free air or abdominal ascites. There is a stable small fat-containing umbilical hernia. There is a 6 mm left lower quadrant omental nodule. This appears smaller than on prior studies Vasculature: The abdominal aorta is normal in course and caliber. Adenopathy: None. Pelvic viscera: There is minor bladder wall thickening with minor perivesical stranding. The uterus is surgically absent. Skeletal structures: No destructive osseous lesions are seen. IMPRESSION: 1. Slight interval decrease in the size of a 6 mm left lower quadrant omental nodule 2. Minor bladder wall thickening 3. No evidence of bowel obstruction. No evidence of free air. No acute inflammatory changes 4. No evidence of pathologic adenopathy 5. Stable right renal cyst Electronically signed by: Izaiah Aceves M.D. 03/07/2017 9:30 AM Dictated Date/Time: 03/07/2017 9:22 AM
== END | disposition home or self-care (01) ==
LOC: C.CTS 08:59
PROVIDERS: ATTEND Family Medicine
DX: K66.8 Other specified disorders of peritoneum (principal)

== ENCOUNTER → 2017-03-10 | Outpatient (CLI) | payer OTHER ==
[~2017-03-10] MED LIST changes: -OPTIRAY 320 IV PRN
--- NOTE | 2017-03-10 14:42 | MAMMOGRAPHY REPORT ---
BILATERAL DIGITAL SCREENING MAMMOGRAM TOMOSYNTHESIS WITH CAD: 03/10/2017 CLINICAL HISTORY: Routine screening. Patient has no complaints. TECHNIQUE: Breast tomosynthesis in addition to standard 2D mammography was performed. Current study was also evaluated with a Computer Aided Detection (CAD) system. COMPARISON: Comparison is made to exams dated: 02/29/2016 mammogram, 02/27/2015 mammogram, 02/21/2014 ma mmogram, 02/08/2013 mammogram, 02/07/2012 mammogram, and 02/05/2011 mammogram - [facility]. BREAST COMPOSITION: The tissue of both breasts is almost entirely fatty. FINDINGS: There is stable asymmetry in the 12:00 left breast. No suspicious mass, architectural dis tortion or cluster of microcalcifications is seen. IMPRESSION: ACR BI-RADS CATEGORY 1: NEGATIVE There is no mammographic evidence of malignancy. A 1 year screening mammogram is recommended. The pa tient will receive written notification of the results. Approximately 10% of breast cancers are not detected with mammography. A negative mammographic report should not delay biopsy if a clinically suggestive mass is present. Kristen Ray M.D. ay/:03/10/2017 08:10:20 Compensation And Benefits Manager: Cathy EDMOND(Estefani)(M), [facility] letter sent: Normal 1/2 BI-RADS Code: ACR BI-RADS Category 1: Negative
== END | disposition home or self-care (01) ==
LOC: C.MAMM 07:15
PROVIDERS: ATTEND Family Medicine
DX: Z12.31 Encounter for screening mammogram for malignant neoplasm of breast (principal)

== ENCOUNTER 2017-05-22 07:16 | Day surgery (SDC) | payer OTHER ==
[2017-05-05 15:35] VITALS: Ht 160 cm; Wt 90.6 kg
--- NOTE | 2017-05-05 16:17 | PAT Medication Instructions ---
Service Date May 05, 2017. Current Home Medication List Aspirin (Aspirin Ec), 81 MG PO HS Coenzyme Q10 (Ubidecarenone) (Coq-10), 1 TAB PO QAM Gabapentin (Neurontin), 600 MG PO TID Loratadine (Claritin), 10 MG PO QAM Lorazepam (Ativan), 0.5 MG PO TID PRN for Anxiety/Agitation Metoprolol Succ (Toprol Xl) (Toprol-Xl), 12.5 MG PO QPM Propafenone HCl (Propafenone HCl), 150 MG PO TID Rosuvastatin Calcium (Crestor), 10 MG PO QPM Medication Instructions For Your Scheduled Surgery - Hold the following medications 2 weeks prior to surgery: Coenzyme Q10 (Ubidecarenone) (Coq-10), 1 TAB PO QAM (LAST DOSE MONDAY 05/08) - Hold the following medications 5 days prior to surgery per your surgeon's instructions: Aspirin (Aspirin Ec), 81 MG PO HS - Hold the following medications the morning of surgery: Loratadine (Claritin), 10 MG PO QAM - Take the following medications the morning of surgery with a sip of water: Gabapentin (Neurontin), 600 MG PO TID Propafenone HCl (Propafenone HCl), 150 MG PO TID Lorazepam (Ativan), 0.5 MG PO TID PRN for Anxiety/Agitation (if needed) - Take the following medications as scheduled the night before surgery: Gabapentin (Neurontin), 600 MG PO TID Lorazepam (Ativan), 0.5 MG PO TID PRN for Anxiety/Agitation (if needed) Metoprolol Succ (Toprol Xl) (Toprol-Xl), 12.5 MG PO QPM Propafenone HCl (Propafenone HCl), 150 MG PO TID Rosuvastatin Calcium (Crestor), 10 MG PO QPM If you have any questions please call us at [phone] or [phone] or [phone]
[2017-05-05 16:43] LABS: BASO % 0.5 %; BASO ABS # 0.02 K/uL (0-0.2); EOS % 1.6 %; EOS ABS # 0.07 K/uL (0-0.5); HEMATOCRIT 40.2 % (37-47); HEMOGLOBIN 13.5 g/dL (12.0-16.0); IG# 0.01 K/uL (0.00-0.02); LYMPH % 49.4 %; LYMPH ABS # 2.19 K/uL (1.2-3.4); MEAN CORPUSCULAR HEMOGLOBIN 30.5 pg (25-34); MEAN CORPUSCULAR HGB CONC 33.6 g/dl (32-36); MEAN PLATELET VOLUME 10.4 fL (7.4-10.4); MONO % 13.5 %; NEUT % 34.8 %; NEUT ABS # 1.54 K/uL (1.4-6.5); PLATELET COUNT 232 K/uL (130-400); RED CELL DISTRIBUTION WIDTH CV 13.4 % (11.5-14.5); RED CELL DISTRIBUTION WIDTH SD 44.5 fL (36.4-46.3); WHITE BLOOD COUNT 4.43 K/uL (4.8-10.8)
[2017-05-05 16:52] LABS: CALCIUM 8.9 mg/dl (8.5-10.1); CREATININE 0.73 mg/dl (0.60-1.20); POTASSIUM 4.1 mmol/L (3.5-5.1)
[~2017-05-22] VITALS: Ht 160 cm; Wt 90.6 kg
[~2017-05-22 07:16] MED LIST changes: +CEFAZOLIN 2000MG IV PUSH 15 ML IV SCH; +CLR10 PO; +COEN100C11 PO; +CRS/10 PO; -FEXO1TAB49 PO; +LACTATED RINGER'S 1000ML 1,000 ML IV SCH; +LORA-741 PO
[2017-05-22] MEDS ORDERED: GLYCOPYRROLATE INJ 0.2 MG/ML VIAL ONE ×2 (07:45→09:44)
[2017-05-22] MEDS ORDERED: FENTANYL CITRATE INJ 50 MCG/1 ML 2 ML VIAL ONE (07:45)
[2017-05-22] MEDS ORDERED: MIDAZOLAM HCL 1 MG/ML 2ML VIAL ONE (07:45)
[2017-05-22] MEDS ORDERED: ONDANSETRON INJ 2 MG/ML 2 ML VIAL ONE (07:45)
[2017-05-22] MEDS ORDERED: LIDOCAINE HCL 2% 2 ML VIAL (20MG/ML) ONE (07:45)
[2017-05-22] MEDS ORDERED: PROPOFOL IV EMULSION 10 MG/ML 20 ML VIAL IV ONE (07:45)
[2017-05-22] MEDS ORDERED: DEXAMETHASONE SOD INJ 4 MG/ML VIAL ONE (07:45)
[2017-05-22] MEDS ORDERED: NEOSTIGMINE METHYLSULFATE 5 MG/5 ML SYR ONE (07:45)
[2017-05-22 07:47] VITALS: BP 114/69; PULSE 74; TEMP 36.7; O2SAT 95
--- NOTE | 2017-05-22 08:38 | History & Physical Bridge Note ---
H&P Re-Evaluation Bridge Note: I have examined the patient, reviewed the History & Physical and in the interval since the performance of the History & Physical I have noted the following changes of clinical significance: No changes noted
[2017-05-22] MEDS ORDERED: CEFAZOLIN SOD 1 GM VIAL ONE (08:59)
[2017-05-22] MEDS ORDERED: BUPIVACAINE/EPINEPHRINE 0.5% MPF 1:200,000 30 ML VIAL ONE (08:59)
--- NOTE | 2017-05-22 10:01 | [facility] Operative Report ---
Operative Report Operative Date May 22, 2017. Pre-Operative Diagnosis 1. Omental Mass 2. Umbilical Hernia Post-Operative Diagnosis umbilical hernia. no omental mass seen. Procedure(s) Performed Open Umbilical Hernia Repair and Diagnostic Laparoscopy Surgeon Dr. Basilio Bañuelos Vice President Supply Chain Surgeon(s) Veronica Knowles PA-C Estimated Blood Loss 5mL Specimens none, Per Surgeon Anesthesia Type General Complication(s) none Description of Procedure After informed consent was obtained the patient was taken to the operating room and placed in supine position. After successful intubation the abdomen was sterilely prepped and draped in usual fashion. I made a curvilinear infraumbilical incision below her umbilical hernia with a 11 blade scalpel. This was carried down through the soft tissue using electrocautery. Once down to the anterior fascia used a Corrine clamp to come above the umbilicus. I detached the umbilical stalk using electrocautery revealing approximately 1 1/2 cm defect. There was some preperitoneal fat incarcerated within it which I excised. I then placed 2 #0 Vicryl stay sutures on the fascial edges. I opened the peritoneum with a Metzenbaum scissor and performed a finger sweep. A 12 mm Medeiros trocar was placed and the abdomen was insufflated to 18 mmHg. Laparoscope was inserted and the abdomen was examined in 360. 2 right lower quadrant 5 mm trochars were then placed under direct vision. I examined the entire abdomen. I saw no gross abnormalities whatsoever. There were some granulomatous type of peritoneal nodules in the pelvis from her prior hysterectomy which is possibly what they were seeing on the CAT scan. There was nothing worrisome or in need of biopsy. Omentum looked entirely normal as did the small and large bowel. Stomach liver etc. all appeared grossly normal as well. After examining thoroughly all 4 quadrants I removed all the trochars and desufflated the abdomen. I primarily closed the umbilical hernia defect using #1 Ethibond in interrupted [id number] fashion. Once it was repaired I thoroughly irrigated the wound. I reattached the umbilicus to the fascia using 0 Vicryl in simple interrupted fashion. Wound was irrigated a final time and closed in multiple layers using 2-0 Vicryl for deep layers and 4-0 Monocryl for skin. Marcaine was injected around the incisions for postoperative analgesia and sterile dressings were applied. The patient was awaken extubated and transferred to recovery in stable condition. My physician traffic assistant was present through the entire case. She helped prep the patient. She helped with retraction and exposure throughout the entire case. She also helped with wound closure and dressing placement. I attest to the content of the Intraoperative Record and any orders documented therein. Any exceptions are noted below.
[2017-05-22] MEDS ORDERED: SODIUM CHLORIDE 0.9% 1000ML 1,000 ML IV SCH (10:07)
[2017-05-22] MEDS ORDERED: HYDR-5688 PO (10:09)
--- NOTE | 2017-05-22 10:12 | Discharge Instructions ---
Discharge Instructions Date of Service May 22, 2017. Admission Reason for Admission: Umbilical Hernia, Omental Mass Discharge Discharge Diagnosis / Problem: Umbilical Hernia, Omental Mass Discharge Goals Goal(s): Decrease discomfort, Improve function Activity Recommendations Activity Limitations: as noted below Lifting Limitations: no more than 10 pounds Exercise/Sports Limitations: until after follow-up appointment May Resume Sexual Activity: after follow-up appointment Shower/Bathe: tomorrow Driving or Machine Use: resume 1 day after discharge . Instructions / Follow-Up Instructions / Follow-Up You have surgical glue, Dermabond, over your incisions. You may shower tomorrow , please leave the dressing on your belly button for 24-48 hrs. Then, you may remove the dressing and cotton ball and shower. Do not soak or scrub your incisions. Please follow-up with Dr. Bañuelos in the General Surgery Clinic in 1-2 weeks. Please call the office at [phone] to make an appointment if you do not have one already. Please call the office with any questions or concerns. Current Hospital Diet Patient's current hospital diet: Discharge Diet Recommended Diet: Regular Diet Procedures Procedures Performed: Open Umbilical Hernia Repair and Diagnostic Laparoscopy Pending Studies Studies pending at discharge: no Medical Emergencies . Who to Call and When: Medical Emergencies: If at any time you feel your situation is an emergency, please call 911 immediately. . Non-Emergent Contact Non-Emergency issues call your: Primary Care Provider, Surgeon Call Non-Emergent contact if: temperature is above 101.5, your pain is not controlled, wound has increased drainage, wound has increased redness . "Provider Documentation" section prepared by Veronica Knowles. . [place] Drug Monitoring Program Search Results: patient reviewed within database, no issues identified
[2017-05-22] MEDS ORDERED: HYDROCODONE/ACETAMIN 5/325MG TAB PO PRN ×2 (10:15)
[2017-05-22] MEDS ORDERED: ONDANSETRON INJ 2 MG/ML 2 ML VIAL IV PRN ×2 (10:15→10:30)
[2017-05-22] MEDS ORDERED: HYDROmorphone INJ 0.5 MG/0.5 ML SYR IV PRN (10:30)
[2017-05-22] MEDS ORDERED: ATROPINE SULFATE 0.1 MG/ML 5ML SYR IV PRN (10:30)
[2017-05-22] MEDS ORDERED: MEPERIDINE HCL 25 MG/ML CARP IV PRN (10:30)
[2017-05-22] MEDS ORDERED: EpHEDrine SULFATE INJ 50 MG/ML AMP IV PRN (10:30)
[2017-05-22] MEDS ORDERED: LABETALOL HCL IV 5 MG/ML 20ML IV PRN (10:30)
[2017-05-22] MEDS ORDERED: FENTANYL CITRATE INJ 50 MCG/1 ML 2 ML VIAL IV PRN (10:30)
[2017-05-22 10:50] VITALS: BP 95/61; PULSE 58; TEMP 36.4; O2SAT 93
--- NOTE | 2017-05-22 11:11 | Anesthesiology Progress Note ---
Anesthesia Post Op Note Date & Time May 22, 2017 at 11:11 Vital Signs Pain Intensity: 0 Vital Signs Past 12 Hours Date Time Temp Pulse Resp B/P (MAP) Pulse Ox O2 Delivery O2 Flow Rate FiO2 05/22/17 10:50 36.4 58 18 95/61 93 Nasal Cannula 2 05/22/17 10:45 14 99/62 95 Nasal Cannula 2 05/22/17 10:35 36.3 61 15 102/63 97 Oxymask 3 05/22/17 10:25 61 14 101/66 97 Oxymask 5 05/22/17 10:15 64 16 102/62 97 Oxymask 10 05/22/17 10:07 36.0 78 16 110/75 96 Oxymask 10 05/22/17 07:47 36.7 74 18 114/69 (84) 95 Room Air Notes Mental Status: alert / awake / arousable, participated in evaluation Pt Amnestic to Procedure: Yes Nausea / Vomiting: adequately controlled Pain: adequately controlled Airway Patency, RR, SpO2: stable & adequate BP & HR: stable & adequate Hydration State: stable & adequate Anesthetic Complications: no major complications apparent
[2017-05-22 11:20] VITALS: BP 90/51; PULSE 62; TEMP 36.3; O2SAT 94
[2017-05-22] MEDS ORDERED: HYDROCODONE/ACETAMIN 5/325MG TAB ONE (11:40)
[2017-05-22 11:51] VITALS: BP 97/60; PULSE 57; TEMP 36.4; O2SAT 94
[2017-05-22 12:25] VITALS: BP 110/61; PULSE 62; O2SAT 95
[2017-05-22 12:50] VITALS: BP 104/65; PULSE 68; TEMP 36.4; O2SAT 95
== END 2017-05-22 14:08 | disposition home or self-care (01) ==
LOC: C.ACU 07:16
PROVIDERS: ATTEND Surgery
DX: K66.8 Other specified disorders of peritoneum (principal); K42.9 Umbilical hernia without obstruction or gangrene; D68.51 Activated protein C resistance; E78.00 Pure hypercholesterolemia, unspecified; F41.1 Generalized anxiety disorder; G47.00 Insomnia, unspecified; Z68.35 Body mass index [BMI] 35.0-35.9, adult; E66.9 Obesity, unspecified; Z90.49 Acquired absence of other specified parts of digestive tract; Z90.710 Acquired absence of both cervix and uterus; Z98.51 Tubal ligation status; Z90.89 Acquired absence of other organs; Z98.890 Other specified postprocedural states; Z79.82 Long term (current) use of aspirin; Z79.899 Other long term (current) drug therapy; Z82.3 Family history of stroke; Z82.49 Family history of ischemic heart disease and other diseases of the circulatory system; Z83.3 Family history of diabetes mellitus

== ENCOUNTER → 2017-06-19 | Outpatient (CLI) | payer OTHER ==
[~2017-06-19] MED LIST changes: -CEFAZOLIN 2000MG IV PUSH 15 ML IV SCH; -LACTATED RINGER'S 1000ML 1,000 ML IV SCH; +OPTIRAY 320 IV PRN
--- NOTE | 2017-06-19 12:18 | DIAGNOSTIC IMAGING REPORT ---
ABD/PELVIS IV AND ORAL CONT CT DOSE: 958.92 mGycm HISTORY: Diverticulitis. Pelvic pain. 05/05/17 1625 CREA 0.73 TECHNIQUE: Multiaxial CT images of the abdomen and pelvis were performed following the use of intravenous and oral contrast. A dose lowering technique was utilized adhering to the principles of ALARA. COMPARISON STUDY: 03/07/2017 FINDINGS: Lung bases are clear. Mild fatty infiltration of liver. Prior cholecystectomy. Several small renal cortical cyst unchanged from the prior exam. No evidence for hydronephrosis. The bowel pattern is nonobstructive. Normal appendix. Scattered colonic diverticuli. No evidence for diverticulitis. Normal pattern. No evidence for fecal stasis. No secondary evidence for free air or pneumatosis. IMPRESSION: No significant abnormality identified within the abdomen or pelvis. Mild fatty infiltration of liver. Prior cholecystectomy/hysterectomy.. The above report was generated using voice recognition software. It may contain grammatical, syntax or spelling errors. Electronically signed by: Gunner Cortes M.D. 06/19/2017 12:17 PM Dictated Date/Time: 06/19/2017 12:13 PM
== END | disposition home or self-care (01) ==
LOC: C.CTS 09:59
PROVIDERS: ATTEND Family Medicine
DX: K57.92 Diverticulitis of intestine, part unspecified, without perforation or abscess without bleeding (principal); Z90.49 Acquired absence of other specified parts of digestive tract; Z90.710 Acquired absence of both cervix and uterus

== ENCOUNTER 2019-10-31 14:00 | Observation (INO) ==
--- NOTE | 2019-10-31 14:12 | Emergency Department Note ---
History of Present Illness General Chief Complaint: Chest Pain Stated Complaint: cp Time Seen by Provider: 10/31/19 14:03 History of Present Illness Provider Complaint: chest pain Time: 12:45 Duration: now resolved Onset: during rest Pain Location: substernal Pain Radiation: none Maximum Pain Intensity: 10 Current Pain Intensity: 0 Quality: + sharp and + other (pressure) Relieved By: + nothing Exacerbated By: + nothing Context: no recent illness, no recent surgery, no recent immobilization, no recent travel, no trauma/injury, no new medications and no history of DVT/PE Associated symptoms: + dyspnea; no nausea, no vomiting, no diaphoresis, no syncope, no palpitations, no fever, no cough and no leg swelling Related Data On Oral Contraceptives: No Home Medications Home Medications Medication Instructions Recorded Confirmed Type Unknown Colestrol Supplement 1 tab PO DAILY 10/31/19 10/31/19 History cholecalciferol (vitamin D3) 50 mcg PO DAILY 10/31/19 10/31/19 History [Vitamin D3] coenzyme Q10 [CoQ-10] 200 mg PO DAILY 10/31/19 10/31/19 History gabapentin [Neurontin] 600 mg PO TID 10/31/19 10/31/19 History levothyroxine [Synthroid] 50 mcg PO DAILY 10/31/19 10/31/19 History loratadine 10 mg PO DAILY PRN 10/31/19 10/31/19 History sotalol [Betapace] 80 mg PO BID 10/31/19 10/31/19 History Allergies Allergy/AdvReac Type Severity Reaction Status Date / Time naproxen Allergy Intermediate HIVES Verified 10/31/19 15:39 adhesive AdvReac Mild BandAid - Verified 10/31/19 15:39 blister Past Med/Surg History Medical History Anxiety Depression GERD (gastroesophageal reflux disease) History of anxiety Hx of diverticulitis of colon Hx of hyperlipidemia Hx of renal calculi Kidney stone Rectal fissure Rectal fistula Surgical History H/O: hysterectomy History of cholecystectomy History of radiofrequency ablation (RFA) procedure for cardiac arrhythmia History of skin graft History of tonsillectomy and adenoidectomy Social History Smoking Status: Never smoker Preferred Language: Gabonese Feels Safe at Home: Yes Review of Systems A total of 10 systems reviewed and were otherwise negative Physical Exam Vital Signs Vital Signs - 24 hr 10/31/19 14:05 10/31/19 14:09 10/31/19 14:14 Temperature 36.6 C Temperature Source Oral Pulse Rate 60 58 L Pulse Rate from SpO2 Sensor 59 L Respiratory Rate 16 20 Blood Pressure 118/76 118/76 Blood Pressure Mean 90 91 Pulse Oximetry 96 94 94 Oxygen Delivery Method Room Air Room Air Sepsis Recent Fever Within 48 Hours No Sepsis New/Unexplained Change in Mental Status N/A Sepsis Action Taken by Nursing No Action Required 10/31/19 14:33 10/31/19 15:00 10/31/19 15:22 Temperature Temperature Source Pulse Rate 56 L 58 L 62 Pulse Rate from SpO2 Sensor 56 L 59 L 62 Respiratory Rate 16 20 15 Blood Pressure 114/80 Blood Pressure Mean 100 Pulse Oximetry 96 97 96 Oxygen Delivery Method Sepsis Recent Fever Within 48 Hours Sepsis New/Unexplained Change in Mental Status Sepsis Action Taken by Nursing Physical Exam GENERAL: She is oriented to person, place, and time. She appears well-developed and well-nourished. She does not appear distressed. HENT: Exam performed. -Head: Normocephalic and atraumatic. -Right Ear: External ear normal. No mastoid tenderness. -Left Ear: External ear normal. No mastoid tenderness. -Mouth/Throat: The oropharynx is clear and moist. No trismus in the jaw. No dental abscesses or uvula swelling. No oropharyngeal exudate or tonsillar a bscesses. EYES: Conjunctivae and EOM are normal. Pupils are equal, round, and reactive to light. Right eye exhibits no discharge. Left eye exhibits no discharge. No scleral icterus. NECK: Normal range of motion. Neck supple. No JVD present. No spinous process tenderness present. No carotid bruit present. No rigidity. No tracheal deviation and normal range of motion present. No Brudzinski's sign and no Kernig's sign noted. CV: Normal rate, regular rhythm, normal heart sounds and intact distal pulses. There is no peripheral edema. Palpable radial pulses bue. PULM/CHEST: Effort normal and breath sounds normal. No respiratory distress. No stridor. She has no wheezes. She has no rales. -Chest Wall: She exhibits no tenderness. ABD: The abdomen is soft. Bowel sounds are normal. She has no distension. No mass is present. There is no tenderness. There is no rebound, no guarding, no Villanueva's sign and no tenderness at McBurney's point. Rovsig negative MUSC/SKEL: Normal range of motion. There is no peripheral edema, tenderness or deformity. LYMPH: No cervical adenopathy. NEURO: She is alert and oriented to person, place, and time. She has normal strength. No cranial nerve deficit or sensory deficit. Coordination and gait normal. GCS eye subscore is 4. GCS verbal subscore is 5. GCS motor subscore is 6. Cerebellar tests wnl. SKIN: Skin is warm and dry. She is not diaphoretic. PSYCH: She has a normal mood and affect. Behavior is normal. Judgment and thought content normal. Course Course 1403: The patient was evaluated in room A12. A complete history and physical exam was performed. 1620: Vital signs stable. Labs and imaging within normal limits. While the patient was in the emergency department she started to have mild chest pain again pressure in the center of the chest. She got sublingual nitro which she stated helped her chest pain mildly. Given this, the patient will be admitted for chest pain rule out ACS. Discussed the case with Dr. Frausto agreed to evaluate the patient. Administered Medications Discontinued Medications Al Hydrox/Mg Hydrox/Simethicone (Gi Cocktail Ed Use) 1 dose PO ONE ONE Stop: 10/31/19 15:58 Last Admin: 10/31/19 16:01 Dose: 1 dose Documented by: [id number] Sodium Chloride (Nss 1000ml) 1,000 mls @ 999 mls/hr IV .Q1H1M ONE Stop: 10/31/19 16:34 Last Admin: 10/31/19 15:39 Dose: 999 mls/hr Documented by: [id number] Nitroglycerin (Nitroglycerin Sl 0.4 Mg/Tab Tab) 0.4 mg SL NOW STA Stop: 10/31/19 15:35 Last Admin: 10/31/19 15:38 Dose: 0.4 mg Documented by: [id number] Medical Decision Making Laboratory Data Result diagrams: 10/31/19 14:19 10/31/19 14:19 Labs: Lab Results 09/10/31/19 10/31/19 Range/Units 14:19 14:19 14:19 WBC 5.01 (4.8-10.8) K/uL RBC 4.54 (4.2-5.4) M/uL Hgb 13.8 (12.0-16.0) g/dL Hct 42.2 (37-47) % MCV 93.0 (80-100) fL MCH 30.4 (25-34) pg MCHC 32.7 (32-36) g/dL RDW Std Deviation 47.2 H (36.4-46.3) fL RDW Coeff of Sanam 13.8 (11.5-14.5) % Plt Count 227 (130-400) K/uL MPV 10.8 H (7.4-10.4) fL Immature Gran % (Auto) 0.2 % Neut % (Auto) 40.3 % Lymph % (Auto) 45.9 % Mason % (Auto) 11.4 % Eos % (Auto) 1.8 % Baso % (Auto) 0.4 % Neut # (Auto) 2.02 (1.4-6.5) K/uL Lymph # (Auto) 2.30 (1.2-3.4) K/uL Mason # (Auto) 0.57 (0.11-0.59) K/uL Eos # (Auto) 0.09 (0-0.5) K/uL Baso # (Auto) 0.02 (0-0.2) K/uL Immature Gran # (Auto) 0.01 (0.00-0.02) K/uL PT 10.3 (9.0-12.0) Seconds INR 1.0 (0.9-1.1) APTT 26.9 (21.0-31.0) Seconds PTT Ratio 1.0 Sodium 142 (136-145) mmol/L Potassium 3.8 (3.5-5.1) mmol/L Chloride 107 (98-107) mmol/L Carbon Dioxide 29 (21-32) mmol/L Anion Gap 6.0 (3-11) BUN 14 (7-18) mg/dl Creatinine 0.69 (0.6-1.2) mg/dl Est Cr Clr Drug Dosing 97.2 ml/min Est GFR ( Amer) 110.4 Est GFR (Non-Af Amer) 95.3 BUN/Creatinine Ratio 20.2 H (10-20) Glucose 95 (70-99) mg/dl Calcium 9.0 (8.5-10.1) mg/dl Troponin I < 0.015 (0-0.045) ng/ml Lipase 147 (73-393) U/L Imaging Data Chest x-ray: Radiologist's impression: XR chest 2V PA/lateral CLINICAL HISTORY: Chest Pain COMPARISON STUDY: Chest radiograph June 02, 2016. Chest CT December 13, 2015. FINDINGS: Lung volumes are normal. Linear left basilar opacity represents atelectasis. There is no pneumothorax or pleural effusion. Cardiac size is normal. Mediastinal contours are normal. There is no evidence for pulmonary edema. Incidental note is made of cholecystectomy clips. IMPRESSION: No acute cardiopulmonary findings. ACT 112: Negative or not required by law. Electronically signed by: Kike Brower M.D. 10/31/2019 3:06 PM Dictated: 10/31/19 1505 Transcribed: 10/31/19 1505 ECG Data Indication: chest pain Rate (beats per minute): 62 Rhythm: normal sinus Findings: + 1st degree AV block; no ST depression and no ST elevation Additional Comments: QRS QTC intervals within normal limits MDM Narrative Vital signs stable. Labs and imaging within normal limits. While the patient was in the emergency department she started to have mild chest pain again pressure in the center of the chest. She got sublingual nitro which she stated helped her chest pain mildly. Given this, the patient will be admitted for chest pain rule out ACS. Discussed the case with Dr. Frausto agreed to evaluate the patient. Impression & Plan Chest pain Discharge Plan Visit Data Chief Complaint: Chest Pain Stated Complaint: cp ED Provider: Chaitanya Vinson Discharge Problem: Chest pain Patient Disposition: Being Evaluated by Hospitalist Forms Stand Alone Forms: Targeted Growth Prescriptions Prescriptions: No Action gabapentin [Neurontin] 600 mg tablet 600 mg PO TID RF: 0 sotalol [Betapace] 80 mg tablet 80 mg PO BID RF: 0 levothyroxine [Synthroid] 50 mcg tablet 50 mcg PO DAILY RF: 0 loratadine 10 mg Tablet 10 mg PO DAILY PRN (Reason: ALLERGIES) RF: 0 coenzyme Q10 [CoQ-10] 100 mg Capsule 200 mg PO DAILY RF: 0 cholecalciferol (vitamin D3) [Vitamin D3] 50 mcg (2,000 unit) Capsule 50 mcg PO DAILY RF: 0 Unknown Colestrol Supplement 1 tab PO DAILY RF: 0 Referrals Referrals: Anne Austin CRNP [Primary Care Provider] - Discharge Problem: Chest pain Qualifiers: Chest pain type: unspecified Qualified Code(s): R07.9 - Chest pain, unspecified
[2019-10-31 14:34] LABS: Basophils # (auto) 0.02 K/uL (0-0.2); Basophils % (auto) 0.4 %; Eosinophils # (auto) 0.09 K/uL (0-0.5); Eosinophils % (auto) 1.8 %; Hematocrit (blood only) 42.2 % (37-47); Hemoglobin 13.8 g/dL (12.0-16.0); Immature Granulocytes # (auto) 0.01 K/uL (0.00-0.02); Immature Granulocytes % (auto) 0.2 %; Lymphocytes % (auto) 45.9 %; Mean Corpuscular Hemoglobin 30.4 pg (25-34); Mean Corpuscular Hgb Conc 32.7 g/dL (32-36); Mean Platelet Volume 10.8 fL (7.4-10.4); Monocytes # (auto) 0.57 K/uL (0.11-0.59); Monocytes % (auto) 11.4 %; Neutrophils # (auto) 2.02 K/uL (1.4-6.5); Neutrophils % (auto) 40.3 %; Platelet Count 227 K/uL (130-400); RDW Coefficient of Variation 13.8 % (11.5-14.5); RDW Standard Deviation 47.2 fL (36.4-46.3); Red Blood Count 4.54 M/uL (4.2-5.4); White Blood Count 5.01 K/uL (4.8-10.8)
[2019-10-31 14:43] LABS: Partial Thromboplastin Time 26.9 Seconds (21.0-31.0); Prothrombin Time 10.3 Seconds (9.0-12.0)
[2019-10-31 14:58] LABS: BUN Creatinine Ratio 20.2 (10-20); Blood Urea Nitrogen 14 mg/dl (7-18); Carbon Dioxide 29 mmol/L (21-32); Chloride 107 mmol/L (98-107); Creatinine Clr Calc Pharmacy 97.2 ml/min; Est GFR (African American) 110.4; Est GFR (Non-African American) 95.3; Glucose 95 mg/dl (70-99); Lipase 147 U/L (73-393); Potassium 3.8 mmol/L (3.5-5.1); Sodium 142 mmol/L (136-145)
[2019-10-31 15:03] LABS: Troponin I < 0.015 ng/ml (0-0.045)
--- NOTE | 2019-10-31 15:07 | XRay Report ---
XR chest 2V PA/lateral CLINICAL HISTORY: Chest Pain COMPARISON STUDY: Chest radiograph June 02, 2016. Chest CT December 13, 2015. FINDINGS: Lung volumes are normal. Linear left basilar opacity represents atelectasis. There is no pn eumothorax or pleural effusion. Cardiac size is normal. Mediastinal contours are normal. There is no evidence for pulmonary edema. Incidental note is made of cholecystectomy clips. IMPRESSION: No acute cardiopulmonary findings. ACT 112: Negative or not required by law. Electronically signed by: Kike Brower M.D. 10/31/2019 3:06 PM
[2019-10-31] MEDS ORDERED: SODIUM CHLORIDE 0.9% 1000ML 1,000 ML IV ONE (15:34)
[2019-10-31] MEDS ORDERED: NITROGLYCERIN SL 0.4 MG/TAB TAB SL STA (15:34)
[2019-10-31] MEDS ORDERED: GI COCKTAIL ED USE PO ONE (15:57)
[2019-10-31] MEDS ORDERED: ACETAMINOPHEN 325 MG TAB PO PRN (16:25)
[2019-10-31] MEDS ORDERED: ONDANSETRON INJ 2 MG/ML 2 ML VIAL IV PRN (16:25)
[2019-10-31] MEDS ORDERED: MoRPHine SULFATE 2 MG/ML CARP IV PRN (16:25)
--- NOTE | 2019-10-31 16:34 | History & Physical Report ---
Date of Service October 31, 2019 Assessment & Plan (1) Chest pain: Patient admitted with atypical chest pain. Will monitor cardiac markers. will consult cardio. May be secondary to GERD. will monitor symptoms. (2) Depression: resume home meds (3) Anxiety: resume home meds (4) Paroxysmal A-fib: Take stotalol at home. Anticoagulant not indicated at this time. (5) Hypothyroidism: resume levothyrocine History of Present Illness Chief Complaint: Chest pain Primary Care Provider: KELSIE Jarquin 59 yo female with PMH of A. fib reports at 1 pm today midsternum intermittent non radiating pressure like chest pain which worsened with deep breaths Pain was severe and last about 10 mintues and then subisded. She arrived to the ED AND had a smiliar episode by reports she improved Allergies Allergy/AdvReac Type Severity Reaction Status Date / Time naproxen Allergy Intermediate HIVES Verified 10/31/19 15:39 adhesive AdvReac Mild BandAid - Verified 10/31/19 15:39 blister Home Medications Home Medications Medication Instructions Recorded Confirmed Type Unknown Colestrol Supplement 1 tab PO DAILY 10/31/19 10/31/19 History cholecalciferol (vitamin D3) 50 mcg PO DAILY 10/31/19 10/31/19 History [Vitamin D3] coenzyme Q10 [CoQ-10] 200 mg PO DAILY 10/31/19 10/31/19 History gabapentin [Neurontin] 600 mg PO TID 10/31/19 10/31/19 History levothyroxine [Synthroid] 50 mcg PO DAILY 10/31/19 10/31/19 History loratadine 10 mg PO DAILY PRN 10/31/19 10/31/19 History sotalol [Betapace] 80 mg PO BID 10/31/19 10/31/19 History Past Med/Surg History Medical History Anxiety Depression GERD (gastroesophageal reflux disease) History of anxiety Hx of diverticulitis of colon Hx of hyperlipidemia Hx of renal calculi Kidney stone Rectal fissure Rectal fistula Surgical History H/O: hysterectomy History of cholecystectomy History of radiofrequency ablation (RFA) procedure for cardiac arrhythmia History of skin graft History of tonsillectomy and adenoidectomy Social History Smoking Status: Never smoker Second Hand Exposure: No; Do You Dip or Chew Tobacco: No; Tobacco Cessation Education Requested by Patient: No Hx Alcohol Use: No Hx Substance Use: No Preferred Language: Azeri Communication Ability: Effective Turn Down Attendant Required: No Beliefs That Will Affect Care: None Current Living Situation: Spouse and Family Other Information That Helps Us Care for You: No Feels Safe at Home: Yes Safety Concerns: Feels Safe At This Time Review of Systems Review of Systems: All systems reviewed & are unremarkable except as noted in HPI & below Physical Exam Constitutional: WD/WN, vitals as above Eyes: PERRL, conjunctivae normal, anicteric sclerae ENMT: external ear and nose normal, oropharynx normal Neck: trachea midline, no thyromegaly Respiratory: normal respiratory effort, lungs clear to auscultation Cardiovascular: RRR, no murmur, no edema Gastrointestinal (Abdomen): normal bowel sounds, soft, nontender, no hepatosplenomegaly Skin: no rashes, warm and dry Psychiatric: A+Ox3, euthymic affect Lymphatic: no cervical or axillary lymphadenopathy Results & Data Results & Data ([facility]) Vital Signs (Past 12 Hours) Vital Signs Temp Pulse Resp BP Pulse Ox 10/31/19 15:22 62 15 114/80 96 10/31/19 15:00 58 L 20 97 10/31/19 14:33 56 L 16 96 10/31/19 14:14 94 10/31/19 14:09 58 L 20 118/76 94 10/31/19 14:05 36.6 C 60 16 118/76 96 PG Care Time/CCT Total # of Minutes Spent Total Time Spent with Patient: Total time spent is greater than 50% in coordination of care (as documented) at patient's floor/unit and/or counseling patient: Coding Level of Care Code 69356 OBS Care - Level 2 Diagnoses Chest pain R07.9 Chest pain type: unspecified Depression F32.9 Anxiety F41.9 Paroxysmal A-fib I48.0 Hypothyroidism E03.9 (1) Chest pain Chest pain type: unspecified Qualified Code(s): R07.9 - Chest pain, unspecified
[2019-10-31] MEDS: NITROGLYCERIN 2% OINTMENT 30GM TUBE EXT SCH ×2 (18:37→23:57)
[2019-10-31] MEDS: GABAPENTIN 600 MG TAB PO SCH (20:10)
[2019-10-31] MEDS: SOTALOL HCL 80 MG TAB PO SCH (20:11)
[2019-11-01] MEDS: NITROGLYCERIN 2% OINTMENT 30GM TUBE EXT SCH ×2 (06:13→14:22)
[2019-11-01] MEDS ORDERED: LEVOTHYROXINE SODIUM 50 MCG TABLET PO SCH (06:30)
[2019-11-01 07:27] LABS: Hematocrit (blood only) 42.2 % (37-47); Mean Corpuscular Hemoglobin 30.6 pg (25-34); Mean Corpuscular Hgb Conc 33.2 g/dL (32-36); Mean Corpuscular Volume 92.1 fL (80-100); Mean Platelet Volume 10.6 fL (7.4-10.4); Platelet Count 219 K/uL (130-400); RDW Coefficient of Variation 13.9 % (11.5-14.5); RDW Standard Deviation 46.8 fL (36.4-46.3); Red Blood Count 4.58 M/uL (4.2-5.4); White Blood Count 4.43 K/uL (4.8-10.8)
[2019-11-01 07:45] LABS: Basophils # (auto) 0.01 K/uL (0-0.2); Basophils % (auto) 0.2 %; Eosinophils # (auto) 0.06 K/uL (0-0.5); Eosinophils % (auto) 1.4 %; Lymphocytes # (auto) 2.26 K/uL (1.2-3.4); Neutrophils % (auto) 38.4 %
[2019-11-01 07:51] LABS: Blood Urea Nitrogen 14 mg/dl (7-18); Calcium 9.1 mg/dl (8.5-10.1); Carbon Dioxide 27 mmol/L (21-32); Chloride 108 mmol/L (98-107); Creatinine Clr Calc Pharmacy 92.5 ml/min; Est GFR (African American) 106.2; Est GFR (Non-African American) 91.7; Glucose 93 mg/dl (70-99); Sodium 141 mmol/L (136-145)
[2019-11-01 07:55] LABS: Troponin I < 0.015 ng/ml (0-0.045)
[2019-11-01] MEDS: GABAPENTIN 600 MG TAB PO SCH ×2 (08:20→14:40)
--- NOTE | 2019-11-01 09:20 | Electrocardiogram Report ---
Test Reason : Blood Pressure : / mmHG Vent. Rate : 062 BPM Atrial Rate : 062 BPM P-R Int : 212 ms QRS Dur : 084 ms QT Int : 440 ms P-R-T Axes : 063 038 051 degrees QTc Int : 446 ms Sinus rhythm with 1st degree A-V block Septal infarct (cited on or before 20-NOV-2017) Abnormal ECG When compared with ECG of 20-NOV-2017 20:21, No significant change was found Confirmed by Anurag Silva ([id number]) on 11/01/2019 9:19:37 AM Referred By: REFERRED SELF Confirmed By:Anurag Silva
[2019-11-01] MEDS: SOTALOL HCL 80 MG TAB PO SCH (10:11)
[2019-11-01] MEDS ORDERED: OPTIRAY 320 125ml IV ONE (14:06)
--- NOTE | 2019-11-01 14:18 | CT Scan Report ---
CT ANGIOGRAM OF THE CHEST CLINICAL HISTORY: Pleuritic chest pain. COMPARISON STUDY: Chest CT dated 12/13/2015. Chest x-ray dated 10/31/2019. TECHNIQUE: Following the IV administration of 120 cc of Optiray 320, CT angiogram of the chest was pe rformed from the upper abdomen to the thoracic inlet utilizing the pulmonary embolus protocol. Images are reviewed in the axial, sagittal, and coronal planes. 3-D MIPS images are created and assessed. I V contrast was administered without complication. A dose lowering technique was utilized adhering to the principles of ALARA. CT DOSE: 660.50 mGy.cm FINDINGS: Thyroid: Imaged portions of the thyroid gland are normal in size and attenuation. Thoracic aorta: The thoracic aorta is normal in caliber and demonstrates standard 3-vessel arch anato my. No dissection is seen. Pulmonary vasculature: The pulmonary trunk is normal in caliber. There are no filling defects identif ied in main, lobar, or segmental pulmonary branches to suggest pulmonary embolus. Heart: The heart is normal in size and without pericardial effusion. Lungs and pleural spaces: There is bibasilar scarring/atelectasis. No airspace consolidation is seen typical for pneumonia and there is no pleural effusion. The trachea and central airways are clear. Mediastinum: There is no mediastinal lymphadenopathy. Fauzia: Clear. Axillae: There is no axillary lymphadenopathy. Upper abdomen: Cholecystectomy clips are noted. A tiny hiatal hernia is noted. Partially visualized u pper abdominal viscera is otherwise within normal limits. Skeletal structures: No lytic or blastic bony lesions are seen. IMPRESSION: 1. There is no evidence of pulmonary embolus in the main, lobar, or segmental pulmonary arteries. 2. There is no airspace consolidation or pleural effusion. ACT 112: Negative or not required by law. Electronically signed by: Jimmy Velazquez M.D. 11/01/2019 2:17 PM
--- NOTE | 2019-11-01 16:06 | XCELERA ---
[id number]
--- NOTE | 2019-11-01 16:31 | Discharge Summary ---
Date of Service date of admission - October 31, 2019 date of discharge - November 01, 2019 Admission HPI Per Admitting Provider 59 yo female with PMH of paroxysmal a.fib - on chronic sotalol - who presents with midsternal, nonradiating pressure like chest pain which worsened with deep breaths. Pain began about 1pm after eating some pretzels. Pain was severe and lasted about 10 minutes and then subsided. She arrived to the ED AND had a similar episode by report. She was given SL nitro followed by nitropaste with resolution of her pain. Principal Diagnosis chest pain, ACS ruled out Discharge Exam Constitutional well developed and well nourished; no acute distress and no altered mental status ENMT external ear and nose normal, oropharynx normal Respiratory normal respiratory effort, lungs clear to auscultation Cardiovascular Rate/Rhythm: regular rate and regular rhythm Heart Sounds: normal S1 and normal S2; no murmur Vessels: posterior tibial pulses present and dorsalis pedis pulses present; no JVD Extremities: no edema Chest (Breasts) Additional Comments: no reproducible chest wall tenderness to palpation Gastrointestinal (Abdomen) normal bowel sounds, soft, nontender, no hepatosplenomegaly Psychiatric A+Ox3, euthymic affect Discharge Data Allergies Allergy/AdvReac Type Severity Reaction Status Date / Time naproxen Allergy Intermediate HIVES Verified 10/31/19 15:39 adhesive AdvReac Mild BandAid - Verified 10/31/19 15:39 blister Ordered Studies 11/01/19 11:45 CT angio chest PE protocol Stat IMPRESSION: 1. There is no evidence of pulmonary embolus in the main, lobar, or segmental pulmonary arteries. 2. There is no airspace consolidation or pleural effusion. Exercise stress echocardiogram: * NORMAL stress echocardiogram at 8.7 METS and peak heart rate of 89% predicted maximum. * No exercise-induced chest pain. * No EKG changes. * Baseline echocardiogram showed normal left ventricular systolic function without wall motion abnormalities. Hospital Course (1) Chest pain: Serial troponins were all negative. Baseline EKG was normal. Telemetry was normal and did not show any dysrhythmia. She underwent CTA chest as the patient had traveled by car to [place] and back in late August. Fortunately the CTA was negative for PE. She did not experience any recurrent chest pain episodes while here. She underwent exercise stress echocardiogram and this was fully normal with no chest pain, no EKG changes, and no stress-induced wall motion abnormalities. A gastrointestinal etiology was suspected at time of discharge as the presenting episode started after eating pretzels. Perhaps she had experienced a severe case of esophageal spasm. Additionally, the patient stated she had had significant reflux symptoms about a week prior to admission as well. Thus, at time of discharge, the following were advised -- * referral to Gastroenterology as outpatient for consideration of EGD * pantoprazole 40mg once daily x 30 days * reflux precautions and dietary modification (2) Depression: continue usual home meds (3) Anxiety: continue usual home meds (4) Paroxysmal A-fib: Remains on sotalol twice daily for rhythm control No PAF was seen at any time during her short stay (5) Hypothyroidism: TSH was 2.8 while here Will remain on synthroid 50mcg daily Total Time Total Time Spent Total Time Spent (In Minutes): 40 Total Time Includes: Examination of the Patient, Discharge Planning and Medication Reconciliation Discharge Plan Discharge Items Patient Disposition: Home - Self-Care Reason For Visit: CHEST PAIN Discharge Diagnosis: chest pain - heart attack, blood clots in the lungs, and pneumonia ruled out with blood work, CAT scan, and stress test. Possibly esophageal/GI in origin. 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 Your blood work for the heart was negative ruling out a heart attack. Your CAT scan of the lungs did NOT show blood clots, pneumonia, or other abnormalities that would have explained your pain/shortness of breath. You underwent a stress test that was negative/normal. The echocardiogram portion of the test showed normal anatomy of your heart and your heart valves. With your heartburn episode last week, and then this episode which occurred after eating pretzels-- I suspect an esophageal cause of your symptoms. You may be having reflux/heartburn with associated esophageal spasm. Recommendations - 1. take pantoprazole heartburn medication - 40mg once daily x 30 days. 2. see [facility] for consideration of EGD. 3. if you continue to have symptoms despite taking the pantoprazole I would also recommend a referral to cardiology for consideration of additional cardiac testing. [facility] has a wool merchant in [place]. Ms Austin can refer you. 4. reflux precautions - avoid spicy foods, fried foods, excessive amounts of caffeinated beverages, eating late at night, lying down immediately after eating meals, etc. Follow-up - see separate section Return to [facility] if - * you have fevers over 100.4 degrees * you have recurrent chest pain spells or shortness of breath * any other concerns Pending Studies at Discharge: No Stand-Alone Forms: My [facility], Smoking Cessation Medications and DC Order Prescriptions: New pantoprazole 40 mg tablet,delayed release (DR/EC) 40 mg PO QAM Qty: 30 RF: 1 Continued gabapentin [Neurontin] 600 mg tablet 600 mg PO TID RF: 0 sotalol [Betapace] 80 mg tablet 80 mg PO BID RF: 0 levothyroxine [Synthroid] 50 mcg tablet 50 mcg PO DAILY RF: 0 loratadine 10 mg Tablet 10 mg PO DAILY PRN (Reason: ALLERGIES) RF: 0 coenzyme Q10 [CoQ-10] 100 mg Capsule 200 mg PO DAILY RF: 0 cholecalciferol (vitamin D3) [Vitamin D3] 50 mcg (2,000 unit) Capsule 50 mcg PO DAILY RF: 0 Unknown Colestrol Supplement 1 tab PO DAILY RF: 0 Discharge Orders: Discharge Order (Routine); Ordered 11/01/19 Ordered By: Hernandez Hugo Admission Data Admit Date/Time: 10/31/19 16:28 Attending Provider: Hernandez Hugo Admit Provider: Carter Carrion Primary Care Provider: Anne Austin Other Providers: Jarek Frausto Other Interventions: Discharge Summary Assessment (RN) Last Done: 11/01/19 16:26 Coding Level of Care Code 97469 OBS Care - Discharge Diagnoses Chest pain R07.9 Chest pain type: unspecified Depression F32.9 Anxiety F41.9 Paroxysmal A-fib I48.0 Hypothyroidism E03.9
== END 2019-11-01 17:53 | disposition home or self-care (01) ==
LOC: 2S 14:00 → ED 14:00 → SUATTDRO 16:28 → 2S 17:41

== ENCOUNTER 2024-12-23 16:57 | Inpatient (IN) ==
[2024-12-23 17:49] LABS: Hematocrit (blood only) 44.1 % (37.0-47.0); Hemoglobin 15.0 g/dl (12.0-16.0); Immature Granulocytes # (auto) 0.06 K/uL (0.01-0.20); Immature Granulocytes % (auto) 0.5 %; Mean Corpuscular Hemoglobin 30.2 pg (25.0-34.0); Mean Corpuscular Volume 88.7 fL (80.0-100.0); Platelet Count 314 K/uL (130-400); RDW Standard Deviation 43.6 fL (36.4-46.3); Red Blood Count 4.97 M/uL (4.20-5.40); White Blood Count 11.79 K/ul (4.8-10.8)
--- NOTE | 2024-12-23 17:50 | Emergency Department Note ---
ED Provider Note CHIEF COMPLAINT: Abdominal pain HISTORY OF PRESENTING ILLNESS: The patient is a pleasant 64-year-old female who presents to the emergency department for evaluation of abdominal pain since noon today. The patient states she has been having upper abdominal pain with burning, since breakfast. Patient has a known pancreatic cyst, and she is currently following at [facility] regarding this. She states there is concern that if the cyst grows, and it may cause obstruction, and the patient would require transfer to [facility] at that time. Patient denies chest pain, shortness of breath, nausea, or vomiting. She denies fever. She is well-appearing otherwise, with stable vital signs. The patient follows with Dr. Dary LIGHT [place] [facility] REVIEW OF SYSTEMS: See HPI for pertinent positives and pertinent negatives. ALLERGIES: See below MEDICATIONS: See below PAST MEDICAL HISTORY: See below PHYSICAL EXAM: VITALS: Vitals are noted on the nurse's note and reviewed by myself. Vital signs stable. GENERAL: 64-year-old female, in no acute distress, nondiaphoretic, well- developed well-nourished. SKIN: The skin was without rashes, erythema, edema, or bruising. HEART: Regular rate and rhythm without murmurs gallops or rubs. LUNGS: Clear to auscultation bilaterally without wheezes, rales or rhonchi. No retractions or accessory muscle use. ABDOMEN: Positive bowel sounds x 4. Soft, upper abdominal distention, with tenderness to palpation noted. No rebound tenderness or guarding. MUSCULOSKELETAL: No muscle atrophy, erythema, or edema noted. Normal gait. Strength 5/5 throughout. NEURO: Patient was alert and oriented to person place and time. No focal neurological deficits. DIFFERENTIAL DIAGNOSIS: Appendicitis, infections, diverticulitis, UTI, obstruction, mesenteric ischemia, aortic pathology, inflammatory bowel disease, renal colic, PUD, pancreatitis, biliary pathology, hernia, mass, volvulus, constipation, as well as other pathologies. ED COURSE AND MEDICAL DECISION MAKING: MEDICATIONS GIVEN: 1 L NSS bolus MONITOR: Continuous bus driver/monitor: Order was placed for continuous bus driver/monitor. Patient was placed on the bus driver/monitor and continuous pulse ox. Patient was noted to be in normal sinus rhythm at an initial rate of 70 bpm per my interpretation. EKG: EKG was interpreted by myself as sinus bradycardia at a rate of 59 bpm, with occasional PVCs. Previous for comparison from July 2024 shows new PVCs with no new concerning signs of ischemia. INTERPRETATION OF LABS: I interpreted the labs with full lab results as below in the lab section of this note. Pertinent lab results discussed in the MDM section below. INTERPRETATION OF IMAGING: Imaging studies were interpreted by myself and read by radiology as per the imaging section of this note. CHRONIC MEDICAL/SOCIAL CONDITIONS AFFECTING CARE: Pancreatic cyst ESCALATION OF CARE CONSIDERED: [] CONSULTATIONS: [] PROCEDURES: [] MDM SUMMARY: The patient is a pleasant, 64-year-old female who arrives to the emergency department for evaluation of the above-stated complaint. Lock was established, lab work was obtained. CBC shows slight leukocytosis 11.75, no anemia. Coags within normal limits. CMP shows slight elevation of BUN, creatinine within normal limits. No other concerning findings. CT imaging of the abdomen and pelvis with IV contrast was obtained which per my interpretation shows []. DIAGNOSIS: [] The chart was completed utilizing [employer] Speech voice recognition software. Grammatical errors, random word insertions, pronoun errors, and incomplete sentences are an occasional consequence of this system due to software limitations, ambient noise, and hardware issues. Any formal questions or concerns about the content, text, or information contained within the body of this dictation should be directly addressed to the provider for clarification. TREATMENT PLAN/DISCHARGE INSTRUCTIONS: [] Past Med/Surg History Problem List Lumbar radicular pain Lumbar degenerative disc disease History of pancreatitis Migraine Greater trochanteric bursitis of left hip Myofascial pain Piriformis syndrome of left side History of 2019 novel coronavirus disease (COVID-19) (Acute) Ilioinguinal neuralgia of left side (Chronic) LLQ abdominal pain (Acute) Kidney stone (Acute) History of tonsillectomy and adenoidectomy (Chronic) History of skin graft (Chronic) History of cholecystectomy (Chronic) H/O: hysterectomy (Chronic) GERD (gastroesophageal reflux disease) (Chronic) Rectal fistula (Chronic) Rectal fissure (Chronic) Medical History Pancreatitis Atrial fibrillation Hypothyroidism Paroxysmal A-fib Hx of diverticulitis of colon Hx of hyperlipidemia Depression Anxiety Surgical History History of radiofrequency ablation (RFA) procedure for cardiac arrhythmia Family History Sister Aortic aneurysm Diabetes Mitral valve disorder Mother CHF (congestive heart failure) Heart murmur Stroke Father Hypertension Leukemia Migraine Sister Intracranial aneurysm Headache Social History Smoking Status: Never smoker Second Hand Exposure: No; Do You Dip or Chew Tobacco: No; Hx Alcohol Use: No Hx Substance Use: No Preferred Language: Kosovan Communication Ability: Effective Visual Impairment: No Limitations Hearing Ability: Normal Heel Pricker Required: No Beliefs That Will Affect Care: None marital status: Current Living Situation: Spouse and Family current occupational status: retired Feels Safe at Home: Yes Assistive Devices: Glasses Allergies Allergies Allergy/AdvReac Type Severity Reaction Status Date / Time naproxen Allergy Intermediate HIVES Verified 12/16/24 08:45 adhesive AdvReac Mild BandAid - Verified 12/16/24 08:45 blister Home Meds Home Medications Medication Instructions Recorded Confirmed cholecalciferol (vitamin D3) 50 50 mcg PO DAILY 10/31/19 12/16/24 mcg (2,000 unit) capsule (Vitamin D3) loratadine 10 mg tablet 10 mg PO DAILY ALLERGIES 04/25/21 12/16/24 sotalol 120 mg tablet 120 mg PO BID 06/03/23 12/16/24 milk thistle 500 mg capsule 500 mg PO DAILY 06/17/23 12/16/24 Sciatiease Suppliment 1 cap PO BID 11/12/24 12/16/24 Previous Rx's Medication Instructions Recorded apixaban 5 mg tablet (Eliquis) 5 mg PO BID #74 tabs 11/12/24 Results & Data (ED) Vital Signs Vital Signs - 24 hr 12/23/24 17:17 12/23/24 17:58 12/23/24 18:01 Temperature 36.3 C L Temperature Source Temporal Artery Scan Pulse Rate 70 66 Respiratory Rate 18 18 Respiratory Effort / Characteristics Splinting (from pain) Blood Pressure 120/75 119/73 124/67 Blood Pressure Mean 90 81 78 Pulse Oximetry 95 93 Oxygen Delivery Method Room Air Room Air Sepsis Recent Fever Within 48 Hours No Sepsis New/Unexplained Change in Mental Status No Sepsis Action Taken by Nursing No Action Required 12/23/24 18:05 11/06/25 18:30 12/23/24 19:02 Temperature Temperature Source Pulse Rate 67 62 64 Respiratory Rate 15 19 Respiratory Effort / Characteristics Blood Pressure 122/64 124/79 Blood Pressure Mean 90 98 Pulse Oximetry 92 93 Oxygen Delivery Method Room Air Room Air Sepsis Recent Fever Within 48 Hours Sepsis New/Unexplained Change in Mental Status Sepsis Action Taken by Nursing 12/23/24 19:19 12/23/24 19:30 Temperature Temperature Source Pulse Rate 57 L 60 Respiratory Rate 14 Respiratory Effort / Characteristics Blood Pressure 112/69 120/73 Blood Pressure Mean 76 101 Pulse Oximetry 94 95 Oxygen Delivery Method Room Air Room Air Sepsis Recent Fever Within 48 Hours Sepsis New/Unexplained Change in Mental Status Sepsis Action Taken by Nursing Laboratory Data 12/23/24 17:31 12/23/24 17:31 Lab Results 12/23/24 Range/Units 17:31 WBC 11.79 H (4.8-10.8) K/ul RBC 4.97 (4.20-5.40) M/uL Hgb 15.0 (12.0-16.0) g/dl Hct 44.1 (37.0-47.0) % MCV 88.7 (80.0-100.0) fL MCH 30.2 (25.0-34.0) pg MCHC 34.0 (32.0-36.0) g/dL RDW Std Deviation 43.6 (36.4-46.3) fL RDW Coeff of Sanam 13.4 (11.5-14.5) % Plt Count 314 (130-400) K/uL MPV 10.2 (9.4-12.4) fL Immature Gran % (Auto) 0.5 % Neut % (Auto) 67.7 % Lymph % (Auto) 22.6 % [place] % (Auto) 8.2 % Eos % (Auto) 0.7 % Baso % (Auto) 0.3 % Neut # (Auto) 7.97 H (1.40-6.50) K/uL Lymph # (Auto) 2.67 (1.20-3.40) K/uL [place] # (Auto) 0.97 H (0.11-0.59) K/uL Eos # (Auto) 0.08 (0.00-0.50) K/uL Baso # (Auto) 0.04 (0.00-0.20) K/uL Immature Gran # (Auto) 0.06 (0.01-0.20) K/uL PT 10.6 (9.0-12.0) Seconds INR 1.0 (0.9-1.1) APTT 26 (21-31) Seconds PTT Ratio 1.0 Sodium 140 (136-145) mmol/L Potassium 3.9 (3.5-5.1) mmol/L Chloride 102 (98-107) mmol/L Carbon Dioxide 28 (21-32) mmol/L Anion Gap 10 (3-11) BUN 24 H (6-23) mg/dl Creatinine 0.69 (0.6-1.2) mg/dl Est Cr Clr Drug Dosing 86.8 ml/min eGFR 96.85 BUN/Creatinine Ratio 34.8 H (10-20) Glucose 118 H (70-99(Fasting)) mg/dl Calcium 9.5 (8.6-10.3) mg/dl Total Bilirubin 0.8 (0.2-1.0) mg/dl AST 18 (13-39) U/L ALT 15 (7-52) U/L Alkaline Phosphatase 82 (34-104) U/L Troponin I High Sens 3.2 (0-14) pg/ml Total Protein 7.6 (6.0-8.3) gm/dl Albumin 4.2 (3.4-5.0) gm/dl Globulin 3.4 (2.5-4.0) gm/dl Albumin/Globulin Ratio 1.2 (0.9-2) Lipase 9260 H (11-82) U/L Administered Medications Discontinued Medications Sodium Chloride (Nss) 1,000 mls @ 999 mls/hr IV .Q1H1M ONE Stop: 12/23/24 20:10 Last Admin: 12/23/24 19:18 Dose: 999 mls/hr Documented By: MARCI Ioversol (Optiray 320 100ml) 92 ml IV ONCE ONE Stop: 12/23/24 18:58 Last Admin: 12/23/24 18:57 Dose: 92 ml Documented By: Imaging Data Radiologist's Impression: Chest X-Ray 12/23/24 17:20 EXAM: X-ray chest one-view portable CLINICAL HISTORY: Chest pain PRIORS: 06/20/2022, 03/13/2020 TECHNIQUE: Frontal view chest FINDINGS: The chest is well-expanded. Mild streaky opacity in the left lower lobe. No airspace consolidation, effusion or congestive changes. Heart size is normal. No pneumothorax. Trachea is patent. Osseous structures demonstrate no acute abnormality. No radiopaque foreign body. IMPRESSION: Streaky opacity in the left lower lobe which could suggest atelectasis or pneumonia in the proper clinical setting. Chest CT could be considered if appropriate. ACT 112: Positive. There are findings on this examination that require communication between the performing entity and the patient following Patient Test Result Information Act ([place] ACT 112) guidelines. Electronically signed by Michaelle Rivas 12-23-2024 7:10 PM Abdomen/Pelvis CT 12/23/24 18:07 CT ABDOMEN and PELVIS with INTRAVENOUS CONTRAST HISTORY: Abdominal pain TECHNIQUE: CT abdomen and pelvis with contrast. IV CONTRAST: 100 mL of OMNIPAQUE 300 ENTERIC CONTRAST: Not Given COMPARISON: CT abdomen and pelvis October 05, 2019. FINDINGS: LOWER CHEST: Bibasilar atelectasis LIVER: No focal lesion identified. Hepatic steatosis and hepatomegaly. GALLBLADDER/BILIARY: Surgically absent gallbladder. No abnormal biliary dilatation. SPLEEN: Unremarkable parencyma. The expected contrast opacification of the splenic vein is not identified, suggesting thrombosis PANCREAS: There are inflammatory changes of the pancreas with edematous parenchyma and peripancreatic fluid. There is a large cystic mass in the body of the pancreas measuring 5.5 x 9.0 x 5.3 cm (AP x TV x CC)). There is a smaller cystic lesion in the head of the pancreas measuring 2.2 cm. ADRENALS: Unremarkable. KIDNEYS: Unremarkable. No stones or hydronephrosis identified. Cortical cysts. PERITONEUM/RETROPERITONEUM. No lymphadenopathy by size criteria. No aortic aneurysm. GASTROINTESTINAL: No obstruction. Normal appendix. Colonic diverticulosis without evidence of diverticulitis. REPRODUCTIVE: Status post hysterectomy. Tubal ligation changes bilaterally. BONES: No acute findings. IMPRESSION: Acute interstitial pancreatitis. Multiple cystic masses arising from the pancreas as above, measuring up to 9.0 cm. These may represent pseudocysts or may represent cystic tumors such as IPMN's. Recommend clinical correlation with workup to this point and if indicated, MRCP evaluation may be considered. The expected contrast opacification of the splenic vein is not identified, suggesting thrombosis Electronically signed by Amos Smith 12-23-2024 8:04 PM Discharge Plan Visit Data Chief Complaint: Abdominal Pain Stated Complaint: ABD PAIN SINCE NOON, HEARTBURN, HAS A CYST ED Provider: August Bowen ED Midlevel Provider: Shalonda Gallo Forms Stand Alone Forms: My [facility] Prescriptions Prescriptions: No Action sotalol 120 mg tablet 120 mg PO BID milk thistle 500 mg capsule 500 mg PO DAILY Rx Instructions: give with meal/snack cholecalciferol (vitamin D3) [Vitamin D3] 50 mcg (2,000 unit) Capsule 50 mcg PO DAILY loratadine 10 mg tablet 10 mg PO DAILY Eliquis 5 mg tablet 5 mg PO BID Qty: 74 0RF Rx Instructions: 10 mg twice a day x7 days then 5 mg twice a day thereafter Sciatiease Suppliment 1 cap PO BID Referrals Referrals: Rebecca Fuchs DO [Primary Care Provider] -
[2024-12-23 18:08] LABS: Alanine Aminotransferase 15.0 U/L (7-52); Albumin Globulin Ratio 1.2 (0.9-2); Albumin Level 4.2 gm/dl (3.4-5.0); Alkaline Phosphatase 82.0 U/L (34-104); Anion Gap 10.0 (3-11); Bilirubin,Total 0.8 mg/dl (0.2-1.0); Blood Urea Nitrogen 24.0 mg/dl (6-23); Calcium 9.5 mg/dl (8.6-10.3); Carbon Dioxide 28.0 mmol/L (21-32); Chloride 102.0 mmol/L (98-107); Creatinine Clr Calc Pharmacy 86.8 ml/min; Globulin 3.4 gm/dl (2.5-4.0); Glucose 118.0 mg/dl (70-99(Fasting)); Potassium 3.9 mmol/L (3.5-5.1); Sodium 140.0 mmol/L (136-145); Total Protein 7.6 gm/dl (6.0-8.3)
[2024-12-23 18:15] LABS: INR 1.0 (0.9-1.1); Partial Thromboplastin Time 26 Seconds (21-31); Prothrombin Time 10.6 Seconds (9.0-12.0)
[2024-12-23] MEDS: OPTIRAY 320 100ml IV ONE (18:57)
--- NOTE | 2024-12-23 19:10 | XRay Report ---
EXAM: X-ray chest one-view portable CLINICAL HISTORY: Chest pain PRIORS: 06/20/2022, 03/13/2020 TECHNIQUE: Frontal view chest FINDINGS: The chest is well-expanded. Mild streaky opacity in the left lower lobe. No airspace consolidation, effusion or congestive changes. Heart size is normal. No pneumothorax. Trachea is patent. Osseous structures demonstrate no acute abnormality. No radiopaque foreign body. IMPRESSION: Streaky opacity in the left lower lobe which could suggest atelectasis or pneumonia in the proper clinical setting. Chest CT could be considered if appropriate. ACT 112: Positive. There are findings on this examination that require communication between the performing entity and the patient following Patient Test Result Information Act ([place] ACT 112) guidelines. Electronically signed by Michaelle Rivas 12-23-2024 7:10 PM
[2024-12-23] MEDS: SODIUM CHLORIDE 0.9% 1,000 ML IV ONE ×2 (19:18→20:29)
--- NOTE | 2024-12-23 20:06 | CT Scan Report ---
CT ABDOMEN and PELVIS with INTRAVENOUS CONTRAST HISTORY: Abdominal pain TECHNIQUE: CT abdomen and pelvis with contrast. IV CONTRAST: 100 mL of OMNIPAQUE 300 ENTERIC CONTRAST: Not Given COMPARISON: CT abdomen and pelvis October 05, 2019. FINDINGS: LOWER CHEST: Bibasilar atelectasis LIVER: No focal lesion identified. Hepatic steatosis and hepatomegaly. GALLBLADDER/BILIARY: Surgically absent gallbladder. No abnormal biliary dilatation. SPLEEN: Unremarkable parencyma. The expected contrast opacification of the splenic vein is not identified, suggesting thrombosis PANCREAS: There are inflammatory changes of the pancreas with edematous parenchyma and peripancreatic fluid. There is a large cystic mass in the body of the pancreas measuring 5.5 x 9.0 x 5.3 cm (AP x TV x CC)). There is a smaller cystic lesion in the head of the pancreas measuring 2.2 cm. ADRENALS: Unremarkable. KIDNEYS: Unremarkable. No stones or hydronephrosis identified. Cortical cysts. PERITONEUM/RETROPERITONEUM. No lymphadenopathy by size criteria. No aortic aneurysm. GASTROINTESTINAL: No obstruction. Normal appendix. Colonic diverticulosis without evidence of diverticulitis. REPRODUCTIVE: Status post hysterectomy. Tubal ligation changes bilaterally. BONES: No acute findings. IMPRESSION: Acute interstitial pancreatitis. Multiple cystic masses arising from the pancreas as above, measuring up to 9.0 cm. These may represent pseudocysts or may represent cystic tumors such as IPMN's. Recommend clinical correlation with workup to this point and if indicated, MRCP evaluation may be considered. The expected contrast opacification of the splenic vein is not identified, suggesting thrombosis Electronically signed by Amos Smith 12-23-2024 8:04 PM
[2024-12-23] MEDS ORDERED: MoRPHine SULFATE 4 MG/ML 1 ML CARP\\VIAL IV PRN (22:10)
--- NOTE | 2024-12-23 22:23 | History & Physical Report ---
Date of Service December 23, 2024 Assessment & Plan (1) Acute pancreatitis: (2) Pancreatic cyst: (3) Splenic vein thrombosis: (4) Superficial thrombosis of right lower extremity: Plan Patient is a 64-year-old female with a past medical history of known pancreatic cyst, ongoing pancreatitis, flank pain, Splenic vein thrombus, factor V Leiden, A-fib, HLD, GERD, anxiety and depression. Patient presented due to sudden onset worsening epigastric pain that radiates to her back found to have a lipase of 9260 and pancreatitis noted on her CT. Patient follows with [facility] and [facility] for an ongoing pancreatic cyst and pancreatitis. #pancreatitis/pancreatic cyst - unclear etiology, with multiple pancreatic cysts. Has had ongoing pancreatitis since February 2023 however acutely worsened with pain 12/23. Lipase 9260 on admission. Mild leukocytosis with WBC 11.79. AP CT revealed pancreatitis with multiple cystic masses measuring up to 9.0 cm. - continue aggressive fluid resuscitation with LR @ 125 ml/hr x3L - clear liquid diet, advance as tolerated - nausea control with Zofran prn - pain control with IV Tylenol 1G ema, morphine 2/4mg for breakthrough pain - GI consulted - trend CBC #Splenic vein thrombosis - noted on previous medical records and AP CT 12/23. - continue Eliquis 5mg BID which was reportedly started for below in November #SVT in right LE - noted on venous Doppler 12/21. Patient reports discovered 11/20 in ED and started on Eliquis and aspirin. - continue Eliquis and baby ASA #A-fibcontinue Eliquis and sotalol VTE ppx: continue home Eliquis 5 mg twice daily Dispo: MedSur Admission and Anticipated Discharge Date Admission Date: 12/23/24 History of Present Illness Chief Complaint: abd pain Primary Care Provider: Rebecca Tejada DO Patient is a 64-year-old female with a past medical history of known pancreatic cyst, ongoing pancreatitis, flank pain, Splenic vein thrombus, factor V Leiden, A-fib, HLD, GERD, anxiety and depression. Patient presented due to sudden onset worsening epigastric pain that radiates to her back found to have a lipase of 9260 and pancreatitis noted on her CT. Patient follows with [facility] and [facility] for an ongoing pancreatic cyst and pancreatitis. Handoff from ER provider stated that they spoke with on-call GI specialist who is okay with admission at our facility. They also spoke with [facility] who recommended conservative management and if significant change or pain develops could consider transfer. Patient seen at bedside. She stated this morning she developed epigastric pain that radiates to her back which is similar to previous episodes of pancreatitis. It was worsening throughout the day and she tried to take Pepcid which did not relieve her pain. Pain is currently 6/10 at bedside without receiving any pain medication yet in the ED. She denies any fevers, chills, nausea, vomiting, diarrhea. She denies nicotine or alcohol use. she is due for her evening medications which include Eliquis and sotalol. She wishes to be full code. Patient stated that this all began when she was in [place] in February 2023, she goes to [place] every winter. She was admitted to the hospital there for 12 days, 3 days of which she was in the ICU, for her first episode of pancreatitis. When she came home about April she started to follow with [facility] in which she has serial abdominal MRIs every 6 months to monitor the pancreatic cyst. Patient had records on her phone and most recent showed that the largest cyst was measuring 9.4 cm. Patient also wanted a second opinion so that is when she started to follow with the [facility] as well. Patient stated she does have a history of A-fib however has never been anticoagulated with this as well as factor V [place]. She stated November she was seen in the ED which showed a superficial venous thrombosis of her lower extremity and at that point was started on both Eliquis and baby aspirin. She stated she was never on anticoagulation for the splenic thrombosis. Previous medical records reviewed through [facility] EMR. Most recent abdominal MRI 11/05 revealed necrotizing pancreatitis with unchanged splenic vein thrombus. Allergies Allergy/AdvReac Type Severity Reaction Status Date / Time naproxen Allergy Intermediate HIVES Verified 12/16/24 08:45 adhesive AdvReac Mild BandAid - Verified 12/16/24 08:45 blister Home Medications Medication Instructions Recorded Confirmed Type cholecalciferol (vitamin D3) 50 50 mcg PO DAILY 10/31/19 12/16/24 History mcg (2,000 unit) capsule (Vitamin D3) loratadine 10 mg tablet 10 mg PO DAILY ALLERGIES 04/25/21 12/16/24 History sotalol 120 mg tablet 120 mg PO BID 06/03/23 12/16/24 History milk thistle 500 mg capsule 500 mg PO DAILY 06/17/23 12/16/24 History Sciatiease Suppliment 1 cap PO BID 11/12/24 12/16/24 History apixaban 5 mg tablet (Eliquis) 5 mg PO BID #74 tabs 11/12/24 12/16/24 Rx Past Med/Surg History Problem List (Updated 12/23/24 @ 22:34 by Ángela Hall PA-C) Superficial thrombosis of right lower extremity Splenic vein thrombosis Pancreatic cyst Acute pancreatitis Lumbar radicular pain Lumbar degenerative disc disease History of pancreatitis Migraine Greater trochanteric bursitis of left hip Myofascial pain Piriformis syndrome of left side History of 2019 novel coronavirus disease (COVID-19) (Acute) Ilioinguinal neuralgia of left side (Chronic) LLQ abdominal pain (Acute) Kidney stone (Acute) History of tonsillectomy and adenoidectomy (Chronic) History of skin graft (Chronic) History of cholecystectomy (Chronic) H/O: hysterectomy (Chronic) GERD (gastroesophageal reflux disease) (Chronic) Rectal fistula (Chronic) Rectal fissure (Chronic) Medical History Pancreatitis Atrial fibrillation Hypothyroidism Paroxysmal A-fib Hx of diverticulitis of colon Hx of hyperlipidemia Depression Anxiety Surgical History History of radiofrequency ablation (RFA) procedure for cardiac arrhythmia Family History Sister Aortic aneurysm Diabetes Mitral valve disorder Mother CHF (congestive heart failure) Heart murmur Stroke Father Hypertension Leukemia Migraine Sister Intracranial aneurysm Headache Social History Smoking Status: Never smoker Second Hand Exposure: No; Do You Dip or Chew Tobacco: No; Hx Alcohol Use: No Hx Substance Use: No Preferred Language: Croatian Communication Ability: Effective Visual Impairment: No Limitations Hearing Ability: Normal Creel Clerk Required: No Beliefs That Will Affect Care: None marital status: Current Living Situation: Spouse current occupational status: retired Other Information That Helps Us Care for You: No Feels Safe at Home: Yes Safety Concerns: Feels Safe At This Time Assistive Devices: None Assistive Devices Comment: reading glasses Review of Systems Review of Systems: see HPI Physical Exam Physical Exam: The patient is awake, alert and oriented 3, well developed and well nourished, normocephalic and atraumatic, in no acute distress. Non-toxic appearing. HEENT- EOMI, mucous membranes moist. Hearing grossly intact. Heart-normal S1 and S2. No murmurs, rubs or gallops. Lungs-clear bilaterally, no respiratory distress, no accessory muscle use. Abdomen-normal bowel sounds and soft. No ascites noted. Tender to epigastric region. Extremities- no clubbing, cyanosis, or edema. Rheumatologic-normal range of motion. Psychiatric-tearful affect. Results & Data Results & Data Vital Signs (Past 12 Hours) Vital Signs Temp Pulse Resp BP Pulse Ox O2 Del Method 12/23/24 20:30 63 17 128/81 96 Room Air 12/23/24 19:30 60 14 120/73 95 Room Air 12/23/24 19:19 57 L 112/69 94 Room Air 12/23/24 19:02 64 19 124/79 93 Room Air 12/23/24 18:30 62 15 122/64 92 Room Air 12/23/24 18:05 67 12/23/24 18:01 66 18 124/67 93 Room Air 12/23/24 17:58 119/73 12/23/24 17:17 36.3 C L 70 18 120/75 95 Room Air Laboratory Results Reviewed CBC, PT/INR, CMP, troponin, lipase Diagnostic Findings reviewed AP CT and CXR Medications Administered ED2L NSS bolus ECG Additional Comments: sinus bradycardia with occasional PVCs Rate 59 QTc 431 Code Status & VTE Plan Code Status full code VTE Prophylaxis Plan VTE Prophylaxis will be ordered: Yes Supervising Physician Co-Signing Physician Notes Patient seen and examined, chart reviewed, case discussed with MORELIA Hall and I agree with the assessment and plan as above. In brief, patient is a 64yo female with recurrent pancreatitis, known pancreatic cyst and splenic vein thrombosis presenting with abdominal pain, elevated lipase. Patient with abdominal pain on exam. No bruising. +S1/S2, regular, no m/r/g Lungs CTA Labs and images reviewed Assessment/Plan - acute pancreatitis, known pancreatic cyst for which she follows with [facility] as well as [facility] -Pain control, anti-emetics, IVF -GI consult appreciated -Continue Eliquis 5mg po BID for known splenic vein thrombosis -Remainder as above PG Care Time/CCT Total # of Minutes Spent Total Time Spent with Patient: Total time spent is greater than 50% in coordination of care (as documented) at patient's floor/unit and/or counseling patient: Coding Level of Care Code 03716 INT INP/OBS CARE 3/75MIN Diagnoses Acute pancreatitis K85.90 Pancreatic cyst K86.2 Splenic vein thrombosis I82.890 Superficial thrombosis of right lower extremity I82.811
[2024-12-23] MEDS: LACTATED RINGER'S 1,000 ML IV SCH (22:25)
[2024-12-23] MEDS: MoRPHine SULFATE 4 MG/ML 1 ML CARP\\VIAL IV PRN (22:25)
[2024-12-23] MEDS: ACETAMINOPHEN 1,000 MG/100 ML VIAL IV STA (22:29)
[2024-12-23] MEDS ORDERED: ACETAMINOPHEN 1,000 MG/100 ML VIAL IV PRN (23:55)
[2024-12-23] MEDS ORDERED: DOCUSATE SODIUM 100 MG CAP PO PRN (23:55)
[2024-12-23] MEDS ORDERED: MELATONIN 3 MG TAB PO PRN (23:55)
[2024-12-24] MEDS: MoRPHine SULFATE 4 MG/ML 1 ML CARP\\VIAL IV STA (00:42)
[2024-12-24] MEDS: SOTALOL HCL 80 MG TAB PO SCH (00:58)
[2024-12-24] MEDS: APIXABAN 5 MG TABLET PO SCH (00:58)
[2024-12-24 01:00] VITALS: RESP 18
[2024-12-24] MEDS ORDERED: ALUMINUM/MAGNESIUM SUSP 30 ML UDC PO PRN (02:24)
[2024-12-24] MEDS ORDERED: FAMOTIDINE 20MG IV PUSH 20 MG/5 ML SYR IV PRN (02:30)
[2024-12-24] MEDS: PANTOprazole 40 MG/10 ML SYR IV ONE (02:53)
[2024-12-24] MEDS: FAMOTIDINE 20MG IV PUSH 20 MG/5 ML SYR IV STA (02:53)
[2024-12-24] MEDS: ONDANSETRON INJ 2 MG/ML 2 ML VIAL IV PRN (03:09)
[2024-12-24] MEDS: ACETAMINOPHEN 500 MG TAB PO PRN (06:46)
[2024-12-24 07:40] LABS: Hematocrit (blood only) 38.6 % (37.0-47.0); Hemoglobin 12.7 g/dl (12.0-16.0); Immature Granulocytes # (auto) 0.02 K/uL (0.01-0.20); Immature Granulocytes % (auto) 0.3 %; Mean Corpuscular Hemoglobin 29.5 pg (25.0-34.0); Mean Corpuscular Volume 89.8 fL (80.0-100.0); Platelet Count 238 K/uL (130-400); RDW Standard Deviation 44.4 fL (36.4-46.3); Red Blood Count 4.30 M/uL (4.20-5.40); White Blood Count 7.43 K/ul (4.8-10.8)
[2024-12-24 08:00] LABS: Albumin Level 3.6 gm/dl (3.4-5.0); Bilirubin,Total 1.0 mg/dl (0.2-1.0); Chloride 105.0 mmol/L (98-107); Creatinine Clr Calc Pharmacy 118.6 ml/min; Potassium 4.0 mmol/L (3.5-5.1); Sodium 139.0 mmol/L (136-145)
[2024-12-24 08:09] LABS: Alanine Aminotransferase 240.0 U/L (7-52); Albumin Globulin Ratio 1.5 (0.9-2); Alkaline Phosphatase 91.0 U/L (34-104); Anion Gap 10.0 (3-11); Blood Urea Nitrogen 18.0 mg/dl (6-23); Calcium 8.4 mg/dl (8.6-10.3); Carbon Dioxide 24.0 mmol/L (21-32); Globulin 2.4 gm/dl (2.5-4.0); Glucose 103.0 mg/dl (70-99(Fasting)); Total Protein 6.0 gm/dl (6.0-8.3)
[2024-12-24 08:19] VITALS: O2SAT 93
[2024-12-24] MEDS: PANTOprazole 40 MG/10 ML SYR IV SCH (08:57)
[2024-12-24] MEDS: ASPIRIN 81 MG ECTAB PO SCH (08:57)
--- NOTE | 2024-12-24 09:01 | Gastrointestinal Consultation ---
Date of Consultation December 24, 2024 Assessment & Plan (1) Pancreatic cyst: (2) Acute pancreatitis: (3) Splenic vein thrombosis: Plan 64yowf with h/o Migraines, pancreatitis, Pancreatic cysts, nephrolithiasis and migraines is seen today on daily rounds for acute pancreatitis with 1 days of epigastric abdominal Lipase 9260. Normal LFTs upon arrival. Today LFTs - T-Bili 1.0, AST 479, ALT 240, Alk Phos 91. CT reveals findings of multiple pancreatic cysts measuring up to 9.0cm in the body and smaller cystic lesion measuring 2.2cm. No abnormal biliary dilatation. Spleen is noted to have opacification of splenic vein suggesting thrombosis. Clinically she's feeling better today on clear liquids. (1) Acute Interstitial Pancreatitis in setting Pancreatic Cysts. - Onset of epigastric pain that radiates through to the back. Generalized abdominal pain. Onset after eating breakfast yesterday morning. - Started clear liquids yesterday and came to the ER. Lipase 9260. Normal LFTs upon arrival. Today LFTs - T-Bili 1.0, AST 479, ALT 240, Alk Phos 91. - CT reveals findings of multiple pancreatic cysts measuring up to 9.0cm in the body and smaller cystic lesion measuring 2.2cm. No abnormal biliary dilatation. Spleen is noted to have opacification of splenic vein suggesting thrombosis. - I spoke with Dr Kirt Foote of [facility]. He informed me that these were at one time as large as 15cm walled off necrosis along with splenic thrombosis. However once she got established with them she wasn't having any issues with pain so they decided to forego any ERCP/EUS/drainage of fluid collections. However with this case of pancreatitis if she were to develop fevers, chills, significant leukocytosis then he would recommend transfer to [facility] where they can provide an intervention (ie, EUS/ERCP with drainage). If she's doing better, then we can observe her and check an MRCP and arrange for an outpatient follow up with [facility] were they can re-discuss potential EUS/ERCP evaluation for source of this pancreatitis. - Case reviewed with Attending [facility] [employer] Apprentice Dr. Landeros. We agreed to proceed with MRCP today for further evaluation since there are no signs of infection, organ failure at this time. - Continue with supportive measures as ordered by primary team. - Thank you for allowing us to participate in the care of this patient. Please call with any acute changes, questions or concerns. Please see addendum below with additional recommendation from my supervising physician. Over 60 minutes was spent in chart review, coordination of care, examination and documentation on date of service. Supervising Physician Co-Signing Physician Notes I saw and examined this patient with our nurse practitioner and agree with her assessment and plan. Patient transferred to [facility] where they have managed her in the past. She left prior to my ability to see her. History of Present Illness Reason for Consultation: Pancreatitis Attending Physician: Dewey Ragsdale DO History of Present Illness 64yowf with h/o Migraines, Afib on sotalol and Eliquis, pancreatitis, Pancreatic cysts, nephrolithiasis and migraines is seen today on daily rounds for acute pancreatitis. (1) Acute Interstitial Pancreatitis in setting Pancreatic Cysts. - Onset of epigastric pain that radiates through to the back. Generalized abdominal pain. Onset after eating breakfast yesterday morning. - Started clear liquids yesterday and came to the ER. Lipase 9260. Normal LFTs upon arrival. Today LFTs - T-Bili 1.0, AST 479, ALT 240, Alk Phos 91. - CT reveals findings of multiple pancreatic cysts measuring up to 9.0cm in the body and smaller cystic lesion measuring 2.2cm. No abnormal biliary dilatation. Spleen is noted to have opacification of splenic vein suggesting thrombosis. - Following with [facility] and [facility] for the pancreatic cysts. Initially diagnosed with initial presentation of pancreatitis in 02/2023 at [facility] in [facility]. I spoke with Dr Kirt Foote of [facility]. He informed me that these were at one time as large as 15cm walled off necrosis. However once she got established with them in [place] patient wasn't having any issues so they decided to forego any EUS/ERCP or drainage of these areas. - Clinically she reports that pain is still present but much better. - Stools are loose 3-4 x/day loose/diarrhea, which is status quo for her IBS-D. - She denies any fevers, chills, SOB, CP, vomiting, melena or hematochezia. Family history - Denies h/o pancreatic, GI or liver CA. No CRC. Surgical History - CCY, Tonsillectomy/Adenoidectomy, Reports colonoscopy due 2026 - no polyps. Had EUS/EGD 02/2023 for initial evaluation of pancreatic cysts. Social History - No tobacco, alcohol or drug use. Pertinent Diagnostics Lipase - 9260 T-Bili 1.0 AST 479 ALT 240 Alk Phos 91 Hgb 12.7 Hct 38.6 WBC 7.43 Plt 238 Troponin 3.2 BUN 18, Cr 0.54, Cl 105, CO2 24, Na 139, K 4.0. Note - Triglycerides 209 - (2022) CT abd/pelvis with IV contrast 12/23/24. LOWER CHEST: Bibasilar atelectasis LIVER: No focal lesion identified. Hepatic steatosis and hepatomegaly. GALLBLADDER/BILIARY: Surgically absent gallbladder. No abnormal biliary dilatation. SPLEEN: Unremarkable parencyma. The expected contrast opacification of the splenic vein is not identified, suggesting thrombosis PANCREAS: There are inflammatory changes of the pancreas with edematous parenchyma and peripancreatic fluid. There is a large cystic mass in the body of the pancreas measuring 5.5 x 9.0 x 5.3 cm (AP x TV x CC)). There is a smaller cystic lesion in the head of the pancreas measuring 2.2 cm. ADRENALS: Unremarkable. KIDNEYS: Unremarkable. No stones or hydronephrosis identified. Cortical cysts. PERITONEUM/RETROPERITONEUM. No lymphadenopathy by size criteria. No aortic aneurysm. GASTROINTESTINAL: No obstruction. Normal appendix. Colonic diverticulosis without evidence of diverticulitis. REPRODUCTIVE: Status post hysterectomy. Tubal ligation changes bilaterally. BONES: No acute findings. IMPRESSION: Acute interstitial pancreatitis. Multiple cystic masses arising from the pancreas as above, measuring up to 9.0 cm. These may represent pseudocysts or may represent cystic tumors such as IPMN's. Recommend clinical correlation with workup to this point and if indicated, MRCP evaluation may be considered. The expected contrast opacification of the splenic vein is not identified, suggesting thrombosis Allergies Allergy/AdvReac Type Severity Reaction Status Date / Time naproxen Allergy Intermediate HIVES Verified 12/16/24 08:45 adhesive AdvReac Mild BandAid - Verified 12/16/24 08:45 blister Home Medications Medication Instructions Recorded Confirmed Type cholecalciferol (vitamin D3) 50 50 mcg PO DAILY 10/31/19 12/16/24 History mcg (2,000 unit) capsule (Vitamin D3) loratadine 10 mg tablet 10 mg PO DAILY ALLERGIES 04/25/21 12/16/24 History sotalol 120 mg tablet 120 mg PO BID 06/03/23 12/16/24 History milk thistle 500 mg capsule 500 mg PO DAILY 06/17/23 12/16/24 History Sciatiease Suppliment 1 cap PO BID 11/12/24 12/16/24 History apixaban 5 mg tablet (Eliquis) 5 mg PO BID #74 tabs 11/12/24 12/16/24 Rx Patient History Medical History Pancreatitis Atrial fibrillation Hypothyroidism Paroxysmal A-fib Hx of diverticulitis of colon Hx of hyperlipidemia Depression Anxiety Surgical History History of radiofrequency ablation (RFA) procedure for cardiac arrhythmia Family History Sister Aortic aneurysm Diabetes Mitral valve disorder Mother CHF (congestive heart failure) Heart murmur Stroke Father Hypertension Leukemia Migraine Sister Intracranial aneurysm Headache Social History Smoking Status: Never smoker Second Hand Exposure: No; Do You Dip or Chew Tobacco: No; Hx Alcohol Use: No Hx Substance Use: No Preferred Language: Greek Communication Ability: Effective Visual Impairment: No Limitations Hearing Ability: Normal 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 Alert. Answering questions appropriately. Respiratory: Breathing is even, non-labored. Lungs chaidez are clear to auscultation anteriorly. Cardiovascular: Regular Rate and Rhythm, no murmurs, rubs or gallops appreciated. Gastrointestinal (Abdomen): Normoactive bowel sounds x4, soft, non-distended. Mild tenderness. No rebound tenderness or guarding. Musculoskeletal: Lying in bed comfortably. No peripheral edema. Results & Data Vital Signs (Past 12 Hours) Vital Signs Temp Pulse Pulse Pulse Resp BP BP 12/24/24 07:00 97.9 F 72 18 95/58 L 12/23/24 23:40 97.2 F L 64 18 112/67 12/23/24 23:19 58 L 14 100/64 12/23/24 21:30 67 20 121/78 12/23/24 21:00 66 14 144/85 H Pulse Ox O2 Del Method 12/24/24 07:00 93 Room Air 12/23/24 23:40 96 Room Air 12/23/24 23:19 95 Room Air 12/23/24 21:30 96 Room Air 12/23/24 21:00 96 Room Air PG Care Time/CCT Total # of Minutes Spent Total Time Spent with Patient: Total time spent is greater than 50% in coordination of care (as documented) at patient's floor/unit and/or counseling patient: Coding Level of Care Code 85470 IN/OBS CONSULT LVL 4,60M Diagnoses Pancreatic cyst K86.2 Acute pancreatitis K85.90 Splenic vein thrombosis I82.890
[2024-12-24 09:31] LABS: Magnesium 2.0 mg/dl (1.7-2.4)
[2024-12-24 12:14] LABS: Triglycerides 169.0 mg/dl (0-150)
--- NOTE | 2024-12-24 12:40 | Electrocardiogram Report ---
Test Reason : Blood Pressure : */* mmHG Vent. Rate : 59 BPM Atrial Rate : 59 BPM P-R Int : 176 ms QRS Dur : 82 ms QT Int : 436 ms P-R-T Axes : 31 -4 46 degrees QTcB Int : 431 ms Sinus bradycardia with occasional Premature ventricular complexes Otherwise normal ECG When compared with ECG of 29-Jul-2024 08:02, Premature ventricular complexes are now Present TN interval has decreased Questionable change in QRS axis Confirmed by Anurag Silva ([id number]) on 12/24/2024 12:40:14 PM Referred By: REFERRED SELF Confirmed By: Anurag Silva
--- NOTE | 2024-12-24 14:27 | Discharge Summary ---
Date of Service December 24, 2024 Admission HPI Per Admitting Provider Patient is a 64-year-old female with a past medical history of known pancreatic cyst, ongoing pancreatitis, flank pain, Splenic vein thrombus, factor V Leiden, A-fib, HLD, GERD, anxiety and depression. Patient presented due to sudden onset worsening epigastric pain that radiates to her back found to have a lipase of 9260 and pancreatitis noted on her CT. Patient follows with [facility] and [facility] for an ongoing pancreatic cyst and pancreatitis. Handoff from ER provider stated that they spoke with on-call GI specialist who is okay with admission at our facility. They also spoke with [facility] who re commended conservative management and if significant change or pain develops could consider transfer. Patient seen at bedside. She stated this morning she developed epigastric pain that radiates to her back which is similar to previous episodes of pancreatitis. It was worsening throughout the day and she tried to take Pepcid which did not relieve her pain. Pain is currently 6/10 at bedside without receiving any pain medication yet in the ED. She denies any fevers, chills, nausea, vomiting, diarrhea. She denies nicotine or alcohol use. she is due for her evening medications which include Eliquis and sotalol. She wishes to be full code. Patient stated that this all began when she was in [place] in February 2023, she goes to [place] every winter. She was admitted to the hospital there for 12 days, 3 days of which she was in the ICU, for her first episode of pancreatitis. When she came home about April she started to follow with [facility] in which she has serial abdominal MRIs every 6 months to monitor the pancreatic cyst. Patient had records on her phone and most recent showed that the largest cyst was measuring 9.4 cm. Patient also wanted a second opinion so that is when she started to follow with the [facility] as well. Patient stated she does have a history of A-fib however has never been anticoagulated with this as well as factor V Leyden. She stated November she was seen in the ED which showed a superficial venous thrombosis of her lower extremity and at that point was started on both Eliquis and baby aspirin. She stated she was never on anticoagulation for the splenic thrombosis. Previous medical records reviewed through [facility] EMR. Most recent abdominal MRI 11/05 revealed necrotizing pancreatitis with unchanged splenic vein thrombus. Admission Exam Per Admitting Provider The patient is awake, alert and oriented 3, well developed and well nourished, normocephalic and atraumatic, in no acute distress. Non-toxic appearing. HEENT- EOMI, mucous membranes moist. Hearing grossly intact. Heart-normal S1 and S2. No murmurs, rubs or gallops. Lungs-clear bilaterally, no respiratory distress, no accessory muscle use. Abdomen-normal bowel sounds and soft. No ascites noted. Tender to epigastric region. Extremities- no clubbing, cyanosis, or edema. Rheumatologic-normal range of motion. Psychiatric-tearful affect. Principal Diagnosis Chronic pancreatitis Discharge Exam Constitutional well developed and well nourished; no acute distress and no altered mental status ENMT external ear and nose normal, oropharynx normal Respiratory normal respiratory effort, lungs clear to auscultation Cardiovascular Rate/Rhythm: regular rate and regular rhythm Heart Sounds: normal S1 and normal S2; no murmur Vessels: posterior tibial pulses present and dorsalis pedis pulses present; no JVD Extremities: no edema Chest (Breasts) Additional Comments: no reproducible chest wall tenderness to palpation Gastrointestinal (Abdomen) normal bowel sounds, soft, nontender, no hepatosplenomegaly Psychiatric A+Ox3, euthymic affect Discharge Data Allergies Allergy/AdvReac Type Severity Reaction Status Date / Time naproxen Allergy Intermediate HIVES Verified 12/16/24 08:45 adhesive AdvReac Mild BandAid - Verified 12/16/24 08:45 blister Consultations 12/23/24 21:32 ED Decision to Admit Stat 12/23/24 22:15 Consult Gastroenterology Routine 12/24/24 13:10 Burn CD for patient Stat Ordered Studies 12/23/24 18:07 CT Abd and Pelvis [CT abd pelvis IV con only] Stat Hospital Course (1) Acute pancreatitis: (2) Splenic vein thrombosis: (3) Superficial thrombosis of right lower extremity: Plan Patient is a 64-year-old female with a past medical history of known pancreatic cyst, ongoing pancreatitis, flank pain, Splenic vein thrombus, factor V Leiden, A-fib, HLD, GERD, anxiety and depression. Patient presented due to sudden onset worsening epigastric pain that radiates to her back found to have a lipase of 9260 and pancreatitis noted on her CT. Patient follows with [facility] and [facility] for an ongoing pancreatic cyst and pancreatitis. #pancreatitis/pancreatic cyst - unclear etiology, with multiple pancreatic cysts. Has had ongoing pancreatitis since February 2023 however acutely worsened with pain 12/23. Lipase 9260 on admission. Mild leukocytosis with WBC 11.79. AP CT revealed pancreatitis with multiple cystic masses measuring up to 9.0 cm. - continue aggressive fluid resuscitation with LR @ 125 ml/hr x3L - clear liquid diet, advance as tolerated - nausea control with Zofran prn - pain control with IV Tylenol 1G ema, morphine 2/4mg for breakthrough pain - GI consulted - Transfer to the [facility] for EUS and pseudocyst drainage. #Splenic vein thrombosis - noted on previous medical records and AP CT 12/23. - continue Eliquis 5mg BID which was reportedly started for below in November #SVT in right LE - noted on venous Doppler 12/21. Patient reports discovered 11/20 in ED and started on Eliquis and aspirin. - continue Eliquis and baby ASA - Hold Eliquis and ASA until EUS. #A-fibcontinue Eliquis and sotalol VTE ppx: continue home Eliquis 5 mg twice daily Total Time Total Time Spent Total Time Spent (In Minutes): <30 Discharge Plan Discharge Items Patient Disposition: Transfer Acute Care Hospital Reason For Visit: PANCREATITIS Discharge Diagnosis: Pancreatitis with pancreatic cyst Activity: Per Instructions section Non-emergency contact: Primary Care Provider Call non-emergency contact if: your pain is not controlled and your temperature is above 101 Follow-up/Referrals: Rebecca Fuchs DO [Primary Care Provider] - Diet: Regular Addtl Attending Provider Instructions: 64-year-old female with presented due to sudden onset worsening epigastric pain that radiates to her back. -Lipase of 9260 - CT A/P: Multiple cystic masses measuring up to 9.0 cm. These may represent pseudocysts or may represent cystic tumors such as IPMN's and Splenic vein thrombosis Past medical history of known pancreatic cyst, ongoing pancreatitis, flank pain, Splenic vein thrombus, factor V Leiden, A-fib, HLD, GERD, anxiety and depression. Patient follows with [facility] and [facility] for an ongoing pancreatic cyst and pancreatitis. Treatment done: 2L RL and maintenance fluid and analgesics for pain. Plan: Will hold Eliquis and ASA Transfer reason: Transfer for further intervention for pseudocyst of pancreas with Dr Foote at [facility]. Pending Studies at Discharge: Yes (TG level) Stand-Alone Forms: My [facility] Skilled Items Patient informed of condition?: Yes DNR: No Discharge Level of Care: Other Communicable Disease: No Discharge Prognosis: Improving Lines: Peripheral IV Urinary Catheter: No Medications and DC Order Prescriptions: Continued sotalol 120 mg tablet 120 mg PO BID milk thistle 500 mg capsule 500 mg PO DAILY Rx Instructions: give with meal/snack cholecalciferol (vitamin D3) [Vitamin D3] 50 mcg (2,000 unit) Capsule 50 mcg PO DAILY loratadine 10 mg tablet 10 mg PO DAILY Sciatiease Suppliment 1 cap PO BID Held Eliquis 5 mg tablet 5 mg PO BID Qty: 74 0RF Hold Instructions: Resume on 12/24/24. Rx Instructions: 10 mg twice a day x7 days then 5 mg twice a day thereafter Discharge Orders: Discharge Order (Routine); Ordered 12/24/24 Ordered By: Mavis Gonzalez Admission Data Admit Date/Time: 12/23/24 22:13 Attending Provider: Dewey Ragsdale Admit Provider: Sneha Cohen Primary Care Provider: Rebecca Fuchs Other Providers: Nhan Washburn Jr; Sneha Cohen Other Interventions: Discharge Summary Assessment (RN) Last Done: 12/24/24 14:15 Supervising Physician Co-Signing Physician Notes I personally examined the patient and verified all salvador points of history and exam, discussed case, and agree with decision making with Dr Gonzalez Feeling a good bit better. Tolerated clear liquids well. Noted that her GI from her she called and wanted her transferred. Called transfer center, [place] my suspicion that what they are seeing on scan is that his pseudocyst appears likely to be impinging on pancreatic duct. Vitals noted, in general she is awake and alert no distress. HEENT normocephalic atraumatic mucous membranes moist. Abdomen is soft mild epigastric tenderness with no guarding rebound or rigidity, mild distention. Labs and diagnostics noted. Acute recurrent pancreatitisI do harbor concerns that the 1 pseudocyst is potentially impinging on pancreatic ductand therefore her likelihood of recurrence does seem exceedingly high without some intervention. Fortunately her she saw the same thing is me and would like to take her for transfer for EUS and pseudocyst drainage. Stable for transfer. Patient wanted this plan as well. Transferred to [place] this afternoon. Otherwise as above. Resident Activity Tracking Resident Involvement: Resident Care Provided Care Provided: Adult [facility]
[2024-12-24 14:43] VITALS: BP 109/66; PULSE 60; TEMP 98.1
--- NOTE | 2024-12-24 16:14 | Billing Data ---
Date of Service December 24, 2024 Coding Level of Care Code 09132 IN/OBS DISCH 30 MIN/LESS
== END 2024-12-24 15:00 | disposition short-term general hospital (02) | DRG 438 ==
LOC: ED 16:57 → SUATTDRO 22:13 → 3N 22:13

== ENCOUNTER 2025-01-19 12:50 | Observation (INO) ==
[2025-01-19] MEDS: PLASMA-LYTE A 1,000 ML IV ONE (13:35)
[2025-01-19 14:09] LABS: Hematocrit (blood only) 36.8 % (37.0-47.0); Hemoglobin 12.8 g/dL (12.0-16.0); Immature Granulocytes # (auto) 0.05 K/uL (0.01-0.20); Immature Granulocytes % (auto) 0.5 %; Mean Corpuscular Hemoglobin 30.1 pg (25.0-34.0); Mean Corpuscular Volume 86.6 fL (80.0-100.0); Platelet Count 274 K/uL (130-400); RDW Standard Deviation 41.6 fL (36.4-46.3); Red Blood Count 4.25 M/uL (4.20-5.40); White Blood Count 10.62 K/ul (4.8-10.8)
--- NOTE | 2025-01-19 14:15 | Emergency Department Note ---
Impression & Plan Febrile illness, Epigastric abdominal pain, Hyponatremia, Hypomagnesemia, Asymptomatic bacteriuria ED Provider Note NAME: JENNIFER PARK AGE: 64 SEX: F : 1960 ARRIVES VIA: Walk-In INFORMANT: Patient, family ED PROVIDER(S): Derian Topete DO CHIEF COMPLAINT: abdominal pain HPI: This is a 64-year-old female with the PMHx of chronic pancreatitis s/p cystogastrostomy for large pseudocyst at [facility], splenic vein thrombosis on chronic anticoagulation with apixaban, paroxysmal atrial fibrillation on sotalol, migraines, and GERD presenting to [facility] for further evaluation of abdominal pain. Patient is accompanied by her family who provide additional history. Patient states she had subjective fever at home along with nausea and abdominal pain. 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 She reports epigastric pain as well as left-sided pain. Reporting that this radiates into the left flank. Patient has had nausea and a couple episodes of emesis. Patient feels similar to when she has had pancreatitis in the past. She states that she had stents placed by interventional gastroenterology at [facility] approximately 4 to 5 weeks ago. Patient denies any blood in the stool or vomit. Patient states she has been taking her medications as prescribed. No cough or congestion. Denies chest pain or palpitations. No shortness of breath. No urinary complaints. No recent changes in bowel movements. Patient denies recent changes in medications or OTC supplements. Patient offers no other complaints, today. ADDITIONAL HISTORY OBTAINED: Per HPI Chronic Medical/Social Conditions Affecting Care: Per HPI PAST MEDICAL HISTORY: See Below PAST SURGICAL HISTORY: See Below FAMILY HISTORY: See Below SOCIAL HISTORY: See Below HOME MEDICATIONS: See Below ALLERGIES: See Below VITALS: See Below PHYSICAL EXAMINATION: GENERAL: Sitting up in bed, alert, well appearing, well nourished, no distress, non-toxic EYE EXAM: normal conjunctiva. PERRL and EOM's grossly intact. OROPHARYNX: no exudate, no erythema, lips, buccal mucosa, and tongue normal and mucous membranes are dry NECK: supple, no nuchal rigidity, no adenopathy, non-tender LUNGS: Clear to auscultation. Normal chest wall mechanics HEART: no murmurs, regular rate, regular rhythm ABDOMEN: abdomen soft, TTP in the LUQ and epigastrium, no masses, no rebound or guarding. BACK: Back is symmetrical on inspection and there is no deformity, no midline tenderness, no CVA tenderness. SKIN: no rashes and no bruising UPPER EXTREMITIES: upper extremities are grossly normal. LOWER EXTREMITIES: No pitting edema. NEURO EXAM: Normal sensorium, GCS 15, normal speech, no gross weakness of arms, no gross weakness of legs. MEDICAL DECISION MAKING: Differential diagnoses includes but not limited to sepsis, postoperative fluid collection, postoperative infection, postoperative bleeding, recurrent pancreatitis, appendicitis, bowel obstruction, diverticulitis, malignancy, nephrolithiasis, gastroenteritis, hepatobiliary disease, UTI In summary, this is a 64 year old female who presented with abdominal pain. Differential as above. Nursing notes and pertinent past medical records reviewed. Vital signs reviewed and the patient is borderline hypotensive but appears to be her baseline. She is otherwise afebrile and HDS. History and presentation revealed recent procedure by GI at [facility]. This appears to be stenting/tube placement for pseudocyst in the setting of ongoing chronic pancreatitis. Patient now with worsening pain. Reported to have a fever today. Physical examination revealed as above. As a result of my initial evaluation, IV access was established and the patient was placed on CCRM. Therapeutics ordered include IVFR and IV morphine for pain control. Diagnostics interpreted by me include EKG and cardiac monitoring as listed below: -Cardiac Monitoring: An order was placed for continuous cardiac monitoring. The monitor shows a rate of 60-90s with regular rhythm. -ECG: Normal sinus rhythm at a ventricular rate of [address] segment changes to suggest STEMI. Some areas of artifact on this ECG. Patient completed laboratory studies and imaging. Results independently interpreted by me are no leukocytosis or anemia. There is no significant electrolyte derangements or significant kidney dysfunction from baseline. No changes in LFTs. Hypomagnesemia present and IV replenishment ordered with 2g. Urinalysis shows 4+ bacteriuria and trace leukocyte esterase. There is otherwise no evidence of infection on her urinalysis. She does not have urinary symptoms. Will hold on antibiotics for UTI at this time. The patient was managed with IV fluid resuscitation and more morphine. Patient did report mild improvement. She did develop a mild headache and worsening pain was given IV Tylenol. CTAP largely stable as compared to prior, actually mildly improved. Ultimately, the decision was made to admit the patient for possible febrile illness with chronic pancreatitis with recent manipulation. I discussed the case with the hospitalist service via telephone/TigerText and they are agreeable to admit the patient to their services. Based on the above, including the patient's age, coexisting illnesses, labs, imaging, and exam findings the decision to treat as an inpatient. I discussed the patient with the hospitalist team who recommended admission to their services. They received the medications, treatments, interventions indicated above and their condition remained stable. I discussed my findings with the patient and their family and they understand and agree with the treatment plan. All patient / family questions were answered to their satisfaction. Escalation of care was considered including transfer but felt to be unnecessary following discussing with [facility] GI. Case discussed with consultants including [facility] Gastroenterology (Dr. Richmond), requested at 1600, spoke at 1712. Consults/Care Managements Discussions: Per [facility] ER treatment provided: See above Procedures:none Critical Care: None The chart was completed utilizing [employer] Speech voice recognition software. Grammatical errors, random word insertions, pronoun errors, and incomplete sentences are an occasional consequence of this system due to software limitations, ambient noise, and hardware issues. Any formal questions or concerns about the content, text, or information contained within the body of this dictation should be directly addressed to the physician for clarification. Past Med/Surg History Problem List (Updated 01/19/25 @ 23:06 by Derian Topete DO) Asymptomatic bacteriuria (Acute) Hypomagnesemia (Acute) Hyponatremia (Acute) Epigastric abdominal pain (Acute) Febrile illness (Acute) H/O insertion of pancreatic stent Superficial thrombosis of right lower extremity (Acute) Splenic vein thrombosis (Acute) Pancreatic cyst (Acute) Lumbar radicular pain Lumbar degenerative disc disease History of pancreatitis Migraine Greater trochanteric bursitis of left hip Myofascial pain Piriformis syndrome of left side History of 2019 novel coronavirus disease (COVID-19) (Acute) Ilioinguinal neuralgia of left side (Chronic) LLQ abdominal pain (Acute) Kidney stone (Acute) History of tonsillectomy and adenoidectomy (Chronic) History of skin graft (Chronic) History of cholecystectomy (Chronic) H/O: hysterectomy (Chronic) GERD (gastroesophageal reflux disease) (Chronic) Rectal fistula (Chronic) Rectal fissure (Chronic) Medical History Acute pancreatitis Pancreatitis Atrial fibrillation Hypothyroidism Paroxysmal A-fib Hx of diverticulitis of colon Hx of hyperlipidemia Depression Anxiety Surgical History History of radiofrequency ablation (RFA) procedure for cardiac arrhythmia Family History Sister Aortic aneurysm Diabetes Mitral valve disorder Mother CHF (congestive heart failure) Heart murmur Stroke Father Hypertension Leukemia Migraine Sister Intracranial aneurysm Headache Social History Smoking Status: Never smoker Second Hand Exposure: No; Do You Dip or Chew Tobacco: No; Hx Alcohol Use: No Hx Substance Use: No Preferred Language: Macedonian Communication Ability: Effective Visual Impairment: No Limitations Hearing Ability: Normal Modern Languages Professor Required: No Beliefs That Will Affect Care: None marital status: Current Living Situation: Spouse current occupational status: retired Feels Safe at Home: Yes Assistive Devices: CPAP Allergies Allergies Allergy/AdvReac Type Severity Reaction Status Date / Time naproxen Allergy Intermediate HIVES Verified 01/06/25 10:26 adhesive AdvReac Mild BandAid - Verified 01/06/25 10:26 blister Home Meds Home Medications Medication Instructions Recorded Confirmed cholecalciferol (vitamin D3) 50 50 mcg PO DAILY 10/31/19 01/19/25 mcg (2,000 unit) capsule (Vitamin D3) loratadine 10 mg tablet 10 mg PO DAILY ALLERGIES 04/25/21 01/19/25 sotalol 120 mg tablet 120 mg PO BID 06/03/23 01/19/25 milk thistle 500 mg capsule 500 mg PO DAILY 06/17/23 01/19/25 Sciatiease Suppliment 1 cap PO BID 11/12/24 01/19/25 omeprazole 40 mg capsule,delayed 40 mg PO DAILY 01/06/25 01/19/25 release Previous Rx's Medication Instructions Recorded apixaban 5 mg tablet (Eliquis) 5 mg PO BID #74 tabs 11/12/24 Results & Data (ED) Vital Signs Vital Signs - 24 hr 01/19/25 12:51 01/19/25 12:51 01/19/25 14:25 Temperature 37.0 C Temperature Source Oral Pulse Rate 93 H 83 Pulse Rate [Apical] Respiratory Rate 16 18 Respiratory Effort / Characteristics Respiratory Depth Respiratory Pattern Blood Pressure 102/68 Blood Pressure [Left Arm] Blood Pressure Mean 79 Blood Pressure Mean [Left Arm] Pulse Oximetry 96 93 92 Oxygen Delivery Method Room Air Room Air Sepsis Recent Fever Within 48 Hours No Sepsis New/Unexplained Change in Mental Status N/A Sepsis Action Taken by Nursing No Action Required 01/19/25 14:25 01/19/25 15:22 01/19/25 17:03 Temperature Temperature Source Pulse Rate 83 Pulse Rate [Apical] 84 79 Respiratory Rate 17 24 Respiratory Effort / Characteristics Non-Labored Spontaneous Non-Labored Spontaneous Respiratory Depth Normal Normal Respiratory Pattern Regular Regular Blood Pressure Blood Pressure [Left Arm] 102/69 98/56 L Blood Pressure Mean Blood Pressure Mean [Left Arm] 80 70 Pulse Oximetry 94 91 Oxygen Delivery Method Room Air Room Air Sepsis Recent Fever Within 48 Hours Sepsis New/Unexplained Change in Mental Status Sepsis Action Taken by Nursing Laboratory Data 01/19/25 13:30 01/19/25 13:30 Lab Results 01/19/25 Range/Units 13:30 WBC 10.62 (4.8-10.8) K/ul RBC 4.25 (4.20-5.40) M/uL Hgb 12.8 (12.0-16.0) g/dL Hct 36.8 L (37.0-47.0) % MCV 86.6 (80.0-100.0) fL MCH 30.1 (25.0-34.0) pg MCHC 34.8 (32.0-36.0) g/dL RDW Std Deviation 41.6 (36.4-46.3) fL RDW Coeff of Sanam 13.3 (11.5-14.5) % Plt Count 274 (130-400) K/uL MPV 10.6 (9.4-12.4) fL Immature Gran % (Auto) 0.5 % Neut % (Auto) 73.9 % Lymph % (Auto) 9.8 % Holt % (Auto) 15.5 % Eos % (Auto) 0.1 % Baso % (Auto) 0.2 % Neut # (Auto) 7.85 H (1.40-6.50) K/uL Lymph # (Auto) 1.04 L (1.20-3.40) K/uL Holt # (Auto) 1.65 H (0.11-0.59) K/uL Eos # (Auto) 0.01 (0.00-0.50) K/uL Baso # (Auto) 0.02 (0.00-0.20) K/uL Immature Gran # (Auto) 0.05 (0.01-0.20) K/uL Sodium 135 L (136-145) mmol/L Potassium 3.5 (3.5-5.1) mmol/L Chloride 100 (98-107) mmol/L Carbon Dioxide 25 (21-32) mmol/L Anion Gap 10 (3-11) BUN 13 (6-23) mg/dl Creatinine 0.67 (0.6-1.2) mg/dl Est Cr Clr Drug Dosing 87.6 ml/min eGFR 97.54 BUN/Creatinine Ratio 19.4 (10-20) Glucose 165 H (70-99(Fasting)) mg/dl Lactate 1.1 (0.4-2.0) mmol/L Calcium 8.4 L (8.6-10.3) mg/dl Magnesium 1.6 L (1.7-2.4) mg/dl Total Bilirubin 0.8 (0.2-1.0) mg/dl AST 20 (13-39) U/L ALT 25 (7-52) U/L Alkaline Phosphatase 79 (34-104) U/L Troponin I High Sens 8.2 (0-14) pg/ml Total Protein 6.9 (6.0-8.3) gm/dl Albumin 3.4 (3.4-5.0) gm/dl Globulin 3.5 (2.5-4.0) gm/dl Albumin/Globulin Ratio 1.0 (0.9-2) Lipase 11 (11-82) U/L Administered Medications Apixaban (Apixaban 5 Mg Tablet) 5 mg PO BID GAYATRI Stop: 02/18/25 20:59 Last Admin: 01/19/25 21:54 Dose: 5 mg Documented By: JILLIAN Piperacillin Sod/Tazobactam Sod (Zosyn) 4.5 gm in 100 mls @ 25 mls/hr IV Q8H [facility]; Protocol Stop: 01/21/25 21:59 Last Admin: 01/19/25 21:55 Dose: 25 mls/hr Documented By: JILLIAN Sotalol HCl (Sotalol Hcl 80 Mg Tab) 120 mg PO BID GAYATRI Stop: 02/18/25 20:59 Last Admin: 01/19/25 21:57 Dose: Not Given Documented By: JILLIAN Discontinued Medications Acetaminophen (Acetaminophen 500 Mg Tab) 1,000 mg PO NOW STA Stop: 01/19/25 16:20 Last Admin: 01/19/25 16:45 Dose: 1,000 mg Documented By: lexis Parenteral Electrolytes (Plasma-Lyte A Ph 7.4) 1,000 mls @ 999 mls/hr IV .Q1H1M ONE Stop: 01/19/25 14:13 Last Infusion: 01/19/25 16:17 Dose: Infused Documented By: Admin: 01/19/25 13:35 Dose: 999 mls/hr Documented By: RAYRAY Magnesium Sulfate/Dextrose (Magnesium Sulfate / D5w) 1 gm in 100 mls @ 200 mls/hr IV Q30M GAYATRI Stop: 01/19/25 15:55 Last Infusion: 01/19/25 16:54 Dose: Infused Documented By: lexis Admin: 01/19/25 16:22 Dose: 200 mls/hr Documented By: TDDebby Infusion: 01/19/25 16:17 Dose: Infused Documented By: TDDebby Admin: 01/19/25 15:40 Dose: 200 mls/hr Documented By: SUZETTE Acetaminophen (Ofirmev) 1,000 mg in 100 mls @ 400 mls/hr IV NOW STA Stop: 01/19/25 16:11 Last Admin: 01/19/25 16:46 Dose: Not Given Documented By: lexis Parenteral Electrolytes (Plasma-Lyte A Ph 7.4) 1,000 mls @ 125 mls/hr IV .Q8H GAYATRI Stop: 01/22/25 16:14 Last Admin: 01/19/25 17:54 Dose: 125 mls/hr Documented By: lexis Piperacillin Sod/Tazobactam Sod (Zosyn) 4.5 gm in 100 mls @ 200 mls/hr IV NOW ONE; Protocol Stop: 01/19/25 17:07 Last Infusion: 01/19/25 17:50 Dose: Infused Documented By: lexis Admin: 01/19/25 17:06 Dose: 200 mls/hr Documented By: lexis Ioversol (Optiray 320 100ml) 90 ml IV ONCE ONE Stop: 01/19/25 15:16 Last Admin: 01/19/25 15:15 Dose: 90 ml Documented By: ONEL Morphine Sulfate (Morphine Sulfate 4 Mg/Ml 1 Ml Carp\Vial) 4 mg IV NOW STA Stop: 01/19/25 13:14 Last Admin: 01/19/25 15:54 Dose: Not Given Documented By: lexis Imaging Data Radiologist's Impression: Abdomen/Pelvis CT 01/19/25 13:13 CT SCAN OF THE ABDOMEN AND PELVIS WITH IV CONTRAST CLINICAL HISTORY: Pancreatitis. Pseudocyst status post stenting. COMPARISON STUDY: 12/23/2024 TECHNIQUE: Following the IV administration of 90 cc of Optiray 320, CT scan of the abdomen and pelvis is performed from the lung bases to the proximal femora. Images are reviewed in the axial, sagittal, and coronal planes. IV contrast was administered without complication. A dose lowering technique was utilized adhering to the principles of ALARA. CT DOSE: 1319.17 mGy.cm FINDINGS: Lung bases: There are coronary calcifications. There are dependent lower lobe parenchymal opacities statistically atelectatic. Liver: No hepatic masses are visualized. There is no ductal dilatation. The hepatic and portal veins appear patent. Gallbladder: Surgically absent Spleen: No splenic masses identified. There is possible occlusion of the proximal splenic vein with collateral formation. Pancreas: There is been interval placement of a cystogastrostomy tube spanning the stomach and the previously identified pseudocyst. The previous pseudocyst is smaller in size currently measuring 80 x 38 mm. It contains fluid and gas bubbles. There is a 2 cm cystic structure at the level of the pancreatic head. This could represent an additional pseudocyst or other cystic pancreatic lesion. There is marked improvement in the previously identified pancreatic edema Adrenal Glands: No adrenal masses are visualized. Kidneys: There are bilateral renal cysts. There is no hydronephrosis. Abdominal vasculature: There is no evidence of abdominal aortic dilatation. Bowel: There are no transition zones indicate bowel obstruction. There is colonic diverticulosis. There are no acute peridiverticular inflammatory changes. The appendix is visualized and appears normal. Peritoneum: There is no ascites. There is no free intraperitoneal air. Lymphadenopathy: There is no pathologic lymphadenopathy within the abdomen or pelvis. Pelvic viscera: The patient is status post a hysterectomy. No abnormal adnexal masses are visualized. There are gastrostomy the bladder, possibly iatrogenic. Skeletal structures: There are no suspicious lytic or blastic skeletal lesions IMPRESSION: 1. Interval placement of a cystogastrostomy tube draining the previously identified pancreatic pseudocyst. The residual collection measures 80 x 38 mm and contains gas and fluid 2. Improvement in the previously identified pancreatic edema suggesting resolving pancreatitis 3. Suspected splenic vein thrombosis 4. 2 cm cystic lesion at the level the pancreatic head. This could represent an additional pseudocyst however other cystic pancreatic lesions cannot be excluded 5. Gas bubbles within the bladder, possibly iatrogenic ACT 112: Negative or not required by law. Electronically signed by: Izaiah Aceves M.D. 01/19/2025 3:39 PM Discharge Plan Visit Data Chief Complaint: Referred by Doctor Stated Complaint: INFECTION, REF BY DOC ED Provider: Derian Topete Discharge Problem: Febrile illness, Epigastric abdominal pain, Hyponatremia, Hypomagnesemia, Asymptomatic bacteriuria Patient Disposition: Admitted As Inpatient Condition: Fair Discharge Instructions Interventions: ED Discharge Assessment Last Done: 01/19/25 20:23
[2025-01-19 14:27] LABS: Alanine Aminotransferase 25.0 U/L (7-52); Albumin Globulin Ratio 1.0 (0.9-2); Albumin Level 3.4 gm/dl (3.4-5.0); Alkaline Phosphatase 79.0 U/L (34-104); Anion Gap 10.0 (3-11); Bilirubin,Total 0.8 mg/dl (0.2-1.0); Blood Urea Nitrogen 13.0 mg/dl (6-23); Calcium 8.4 mg/dl (8.6-10.3); Carbon Dioxide 25.0 mmol/L (21-32); Chloride 100.0 mmol/L (98-107); Creatinine Clr Calc Pharmacy 87.6 ml/min; Globulin 3.5 gm/dl (2.5-4.0); Glucose 165.0 mg/dl (70-99(Fasting)); Lipase 11.0 U/L (11-82); Magnesium 1.6 mg/dl (1.7-2.4); Potassium 3.5 mmol/L (3.5-5.1); Sodium 135.0 mmol/L (136-145); Total Protein 6.9 gm/dl (6.0-8.3)
--- NOTE | 2025-01-19 14:41 | Electrocardiogram Report ---
Test Reason : Blood Pressure : */* mmHG Vent. Rate : 85 BPM Atrial Rate : 85 BPM P-R Int : 176 ms QRS Dur : 80 ms QT Int : 376 ms P-R-T Axes : 82 -4 53 degrees QTcB Int : 447 ms Normal sinus rhythm Normal ECG When compared with ECG of 23-Dec-2024 17:28, Premature ventricular complexes are no longer Present Confirmed by Anurag Silva ([id number]) on 01/19/2025 2:41:04 PM Referred By: Confirmed By: Anurag Silva
[2025-01-19] MEDS: OPTIRAY 320 100ml IV ONE (15:15)
[2025-01-19] MEDS: MAGNESIUM SULFATE / D5W 1 GM/100 ML BAG IV SCH (15:40)
--- NOTE | 2025-01-19 15:40 | CT Scan Report ---
CT SCAN OF THE ABDOMEN AND PELVIS WITH IV CONTRAST CLINICAL HISTORY: Pancreatitis. Pseudocyst status post stenting. COMPARISON STUDY: 12/23/2024 TECHNIQUE: Following the IV administration of 90 cc of Optiray 320, CT scan of the abdomen and pelvi s is performed from the lung bases to the proximal femora. Images are reviewed in the axial, sagittal , and coronal planes. IV contrast was administered without complication. A dose lowering technique wa s utilized adhering to the principles of ALARA. CT DOSE: 1319.17 mGy.cm FINDINGS: Lung bases: There are coronary calcifications. There are dependent lower lobe parenchymal opacities s tatistically atelectatic. Liver: No hepatic masses are visualized. There is no ductal dilatation. The hepatic and portal veins appear patent. Gallbladder: Surgically absent Spleen: No splenic masses identified. There is possible occlusion of the proximal splenic vein with c ollateral formation. Pancreas: There is been interval placement of a cystogastrostomy tube spanning the stomach and the pr eviously identified pseudocyst. The previous pseudocyst is smaller in size currently measuring 80 x 3 8 mm. It contains fluid and gas bubbles. There is a 2 cm cystic structure at the level of the pancrea tic head. This could represent an additional pseudocyst or other cystic pancreatic lesion. There is m arked improvement in the previously identified pancreatic edema Adrenal Glands: No adrenal masses are visualized. Kidneys: There are bilateral renal cysts. There is no hydronephrosis. Abdominal vasculature: There is no evidence of abdominal aortic dilatation. Bowel: There are no transition zones indicate bowel obstruction. There is colonic diverticulosis. The re are no acute peridiverticular inflammatory changes. The appendix is visualized and appears norm al. Peritoneum: There is no ascites. There is no free intraperitoneal air. Lymphadenopathy: There is no pathologic lymphadenopathy within the abdomen or pelvis. Pelvic viscera: The patient is status post a hysterectomy. No abnormal adnexal masses are visualized . There are gastrostomy the bladder, possibly iatrogenic. Skeletal structures: There are no suspicious lytic or blastic skeletal lesions IMPRESSION: 1. Interval placement of a cystogastrostomy tube draining the previously identified pancreatic pseudo cyst. The residual collection measures 80 x 38 mm and contains gas and fluid 2. Improvement in the previously identified pancreatic edema suggesting resolving pancreatitis 3. Suspected splenic vein thrombosis 4. 2 cm cystic lesion at the level the pancreatic head. This could represent an additional pseudocyst however other cystic pancreatic lesions cannot be excluded 5. Gas bubbles within the bladder, possibly iatrogenic ACT 112: Negative or not required by law. Electronically signed by: Izaiah Aceves M.D. 01/19/2025 3:39 PM
[2025-01-19 15:43] LABS: Appearance Urine Clear (Clear); Bacteria Urine Automated 4+ (None Seen); Cast Urine Automated 0-2 /lpf (0-2); Epithelial Cell Urine Auto 0-2 /hpf (0-2); Glucose Urine UA Negative (Negative); RBC Urine Automated 0-2 /hpf (0-2); WBC Urine Automated 0-5 /hpf (0-5)
[2025-01-19] MEDS: MoRPHine SULFATE 4 MG/ML 1 ML CARP\\VIAL IV STA (15:54)
[2025-01-19] MEDS: ACETAMINOPHEN 500 MG TAB PO STA (16:45)
[2025-01-19] MEDS: ACETAMINOPHEN 1,000 MG/100 ML VIAL IV STA (16:46)
[2025-01-19] MEDS: PIPERACILLIN/TAZOBACTAM 4.5 GM/100 ML BAG IV ONE (17:06)
--- NOTE | 2025-01-19 17:30 | History & Physical Report ---
Date of Service January 19, 2025 Assessment & Plan (1) H/O insertion of pancreatic stent: (2) Pancreatic cyst: (3) Superficial thrombosis of right lower extremity: (4) Splenic vein thrombosis: Plan In summary this is a 64-year-old female who presents to the [facility] after having a measured fever in an outpatient clinic admitted for observation to rule out any occult infectious process #Outpatient fever // Recent pancreatic stent placement Patient's case was discussed by their emergency department provider with their interventional sales department supervisor from [facility] who advised admission and observation to rule out occult infectious process though no acute findings were noted on the patient's imaging nor is there laboratory evidence of such process Continue Zosyn for empiric antibiotic coverage Follow daily CBC with manual differential and CMP for any evidence of endorgan injury if infectious process were to arise If without signs or symptoms of a improving or progressive infection, would anticipate discharge in the next 24 to 48 hours with follow-up in this coming week with her sales department supervisor The remainder the patient's chronic medical conditions are stable and do not require adjustment to their outpatient regimen at this time History of Present Illness Chief Complaint: General illness Primary Care Provider: Rebecca Tejada DO Ms. Olivarez is a 64-year-old female whose active medical conditions include paroxysmal atrial fibrillation, chronic pancreatic cysts, splenic vein thrombosis with recent transfer from this facility to [facility] due to acute pancreatitis associated with a 9 cm in largest dimension pancreatic cyst for which she underwent cystogastrostomy tube placement without complication; she now presents to the [facility] by referral from her independent producer due to an outpatient fever with generalized illness. The patient describes since 01/15 they have experienced intermittent episodes of nausea without vomiting, and intermittent episodes of diaphoresis with no additional symptomatology. They deny any fevers, chills, vomiting, hematemesis, abdominal distention, altered bowel movements. The patient was being seen by their independent producer in the outpatient setting on the day of presentation and found to have a reported temperature of 102F, subsequently referred to the ED for continued assessment. Allergies Allergy/AdvReac Type Severity Reaction Status Date / Time naproxen Allergy Intermediate HIVES Verified 01/06/25 10:26 adhesive AdvReac Mild BandAid - Verified 01/06/25 10:26 blister Home Medications Medication Instructions Recorded Confirmed Type cholecalciferol (vitamin D3) 50 50 mcg PO DAILY 10/31/19 01/19/25 History mcg (2,000 unit) capsule (Vitamin D3) loratadine 10 mg tablet 10 mg PO DAILY ALLERGIES 04/25/21 01/19/25 History sotalol 120 mg tablet 120 mg PO BID 06/03/23 01/19/25 History milk thistle 500 mg capsule 500 mg PO DAILY 06/17/23 01/19/25 History Sciatiease Suppliment 1 cap PO BID 11/12/24 01/19/25 History apixaban 5 mg tablet (Eliquis) 5 mg PO BID #74 tabs 11/12/24 01/19/25 Rx omeprazole 40 mg capsule,delayed 40 mg PO DAILY 01/06/25 01/19/25 History release Past Med/Surg History Problem List H/O insertion of pancreatic stent Superficial thrombosis of right lower extremity (Acute) Splenic vein thrombosis (Acute) Pancreatic cyst (Acute) Lumbar radicular pain Lumbar degenerative disc disease History of pancreatitis Migraine Greater trochanteric bursitis of left hip Myofascial pain Piriformis syndrome of left side History of 2019 novel coronavirus disease (COVID-19) (Acute) Ilioinguinal neuralgia of left side (Chronic) LLQ abdominal pain (Acute) Kidney stone (Acute) History of tonsillectomy and adenoidectomy (Chronic) History of skin graft (Chronic) History of cholecystectomy (Chronic) H/O: hysterectomy (Chronic) GERD (gastroesophageal reflux disease) (Chronic) Rectal fistula (Chronic) Rectal fissure (Chronic) Medical History Acute pancreatitis Pancreatitis Atrial fibrillation Hypothyroidism Paroxysmal A-fib Hx of diverticulitis of colon Hx of hyperlipidemia Depression Anxiety Surgical History History of radiofrequency ablation (RFA) procedure for cardiac arrhythmia Family History Sister Aortic aneurysm Diabetes Mitral valve disorder Mother CHF (congestive heart failure) Heart murmur Stroke Father Hypertension Leukemia Migraine Sister Intracranial aneurysm Headache Social History Smoking Status: Never smoker Second Hand Exposure: No; Do You Dip or Chew Tobacco: No; Hx Alcohol Use: No Hx Substance Use: No Preferred Language: Pakistani Communication Ability: Effective Visual Impairment: No Limitations Hearing Ability: Normal Nanotechnology Engineering Technician Required: No Beliefs That Will Affect Care: None marital status: Current Living Situation: Spouse current occupational status: retired Feels Safe at Home: Yes Assistive Devices: CPAP Review of Systems Review of Systems: Review of constitutional, cardiovascular, pulmonary, gastrointestinal, genitourinary systems was unremarkable other than pertinent positive and negative findings detailed above Physical Exam Physical Exam: General: Adult female in no acute distress Vital Signs: Reviewed HEENT: Moist mucous membranes Pulmonary: Symmetric chest wall excursion without restriction; clear to auscultation bilaterally Cardiovascular: Regular rate and rhythm without murmurs, rubs, or gallops; S1 and S2 normal; right radial pulse 2+; no notable lower extremity edema Gastrointestinal: Soft, nondistended; nontender to palpation throughout with normal bowel sound frequency and pitch Neurologic: Cranial nerves II through XII grossly intact Results & Data Results & Data Vital Signs (Past 12 Hours) Vital Signs Temp Pulse Pulse Resp BP BP Pulse Ox 01/19/25 17:03 79 24 98/56 L 91 01/19/25 15:22 84 17 102/69 94 01/19/25 14:25 83 01/19/25 14:25 83 18 92 01/19/25 12:51 93 01/19/25 12:51 37.0 C 93 H 16 102/68 96 O2 Del Method 01/19/25 17:03 Room Air 01/19/25 15:22 Room Air 01/19/25 14:25 01/19/25 14:25 Room Air 01/19/25 12:51 01/19/25 12:51 Room Air Laboratory Results Urinalysis with trace protein, blood, and leukocyte esterase with 4+ bacteria on microscopy Diagnostic Findings No acute findings or complications related to stent placement Code Status & VTE Plan Code Status Full Code VTE Prophylaxis Plan VTE Prophylaxis will be ordered: No Reason for no VTE drug order: Contraindicated PG Care Time/CCT Total # of Minutes Spent Total Time Spent with Patient: Total time spent is greater than 50% in coordination of care (as documented) at patient's floor/unit and/or counseling patient: Coding Level of Care Code 62748 INT INP/OBS CARE MIN Diagnoses H/O insertion of pancreatic stent Z98.890 Pancreatic cyst K86.2 Superficial thrombosis of right lower extremity I82.811 Splenic vein thrombosis I82.890
[2025-01-19] MEDS: PLASMA-LYTE A 1,000 ML IV SCH (17:54)
[2025-01-19] MEDS: APIXABAN 5 MG TABLET PO SCH (21:54)
[2025-01-19] MEDS: PIPERACILLIN/TAZOBACTAM 4.5 GM/100 ML BAG IV SCH (21:55)
[2025-01-19] MEDS: SOTALOL HCL 80 MG TAB PO SCH (21:57)
[2025-01-19 23:15] VITALS: RESP 16
[2025-01-19] MEDS: ACETAMINOPHEN 500 MG TAB PO PRN (23:52)
[2025-01-20 06:58] VITALS: TEMP 97.7
[2025-01-20 07:17] LABS: Hematocrit (blood only) 34.3 % (37.0-47.0); Hemoglobin 11.6 g/dL (12.0-16.0); Immature Granulocytes # (auto) 0.03 K/uL (0.01-0.20); Immature Granulocytes % (auto) 0.5 %; Mean Corpuscular Hemoglobin 29.8 pg (25.0-34.0); Mean Corpuscular Volume 88.2 fL (80.0-100.0); Platelet Count 221 K/uL (130-400); RDW Standard Deviation 43.1 fL (36.4-46.3); Red Blood Count 3.89 M/uL (4.20-5.40); White Blood Count 5.90 K/ul (4.8-10.8)
[2025-01-20 07:41] LABS: Alanine Aminotransferase 21.0 U/L (7-52); Albumin Globulin Ratio 0.9 (0.9-2); Albumin Level 2.9 gm/dl (3.4-5.0); Alkaline Phosphatase 75.0 U/L (34-104); Anion Gap 6.0 (3-11); Bilirubin,Total 0.6 mg/dl (0.2-1.0); Blood Urea Nitrogen 10.0 mg/dl (6-23); Calcium 8.3 mg/dl (8.6-10.3); Carbon Dioxide 33.0 mmol/L (21-32); Chloride 103.0 mmol/L (98-107); Creatinine Clr Calc Pharmacy 94.7 ml/min; Globulin 3.3 gm/dl (2.5-4.0); Glucose 129.0 mg/dl (70-99(Fasting)); Potassium 3.9 mmol/L (3.5-5.1); Sodium 142.0 mmol/L (136-145); Total Protein 6.2 gm/dl (6.0-8.3)
[2025-01-20 15:14] VITALS: BP 100/65; PULSE 70; O2SAT 94
--- NOTE | 2025-01-20 16:36 | Discharge Summary ---
Date of Service January 20, 2025 Admission HPI Per Admitting Provider Ms. Olivarez is a 64-year-old female whose active medical conditions include paroxysmal atrial fibrillation, chronic pancreatic cysts, splenic vein thrombosis with recent transfer from this facility to [facility] due to acute pancreatitis associated with a 9 cm in largest dimension pancreatic cyst for which she underwent cystogastrostomy tube placement without complication; she now presents to the [facility] by referral from her control systems specialist due to an outpatient fever with generalized illness. The patient describes since 01/15 they have experienced intermittent episodes of nausea without vomiting, and intermittent episodes of diaphoresis with no additional symptomatology. They deny any fevers, chills, vomiting, hematemesis, abdominal distention, altered bowel movements. The patient was being seen by their control systems specialist in the outpatient setting on the day of presentation and found to have a reported temperature of 102F, subsequently referred to the ED for continued assessment. Admission Exam Per Admitting Provider General: Adult female in no acute distress Vital Signs: Reviewed HEENT: Moist mucous membranes Pulmonary: Symmetric chest wall excursion without restriction; clear to auscultation bilaterally Cardiovascular: Regular rate and rhythm without murmurs, rubs, or gallops; S1 and S2 normal; right radial pulse 2+; no notable lower extremity edema Gastrointestinal: Soft, nondistended; nontender to palpation throughout with normal bowel sound frequency and pitch Neurologic: Cranial nerves II through XII grossly intact Principal Diagnosis viral illness Discharge Exam Gen: no acute distress HEENT: Moist mucous membranes CV: RRR, no m/r/g Resp: clear to auscultation b/l, no w/r/R GI/Abd: normoactive BS; abd soft, nondistended MSK: wearing knee-high compression stockings, calves nontender to palpation b/l Neuro: no facial droop, speech intact, no focal deficits Discharge Data Allergies Allergy/AdvReac Type Severity Reaction Status Date / Time naproxen Allergy Intermediate HIVES Verified 01/06/25 10:26 adhesive AdvReac Mild BandAid - Verified 01/06/25 10:26 blister Consultations 01/19/25 17:26 ED Decision to Admit Stat Ordered Studies 01/19/25 13:13 CT abd pelvis IV con only Stat Hospital Course (1) H/O insertion of pancreatic stent: (2) Pancreatic cyst: (3) Superficial thrombosis of right lower extremity: (4) Splenic vein thrombosis: Sohail Orlando is a 64yo female with hx of paroxysmal atrial fibrillation, factor V leiden, chronic pancreatic cysts, splenic vein thrombosis with recent transfer from this facility to [facility] due to acute pancreatitis associated with a 9 cm in largest dimension pancreatic cyst for which she underwent cystogastrostomy tube placement without complication. Referred to [facility] ED by her control systems specialist due to an outpatient fever of 102 and general malaise. Infectious workup has been unremarkable, and pt has continued to deny any fevers, chills, vomiting, hematemesis, abdominal distention, altered bowel movements. She did not have any new concerning lab findings, and have no signs or symptoms consistent with a bacterial infection, thus we are suspecting she had a viral illness. With stable vital signs and no concerning signs or symptoms, we feel comfortable with her discharge today with close outpatient followup. #Viral illness #Outpatient fever No concern for bacterial infection, most likely a common viral illness. - fevers and symptoms may go up and down, but if still having fever, body aches, chills, sweats, etc. at about a week since symptom onset, recommended to see PCP as we may recommend empiric treatment for Lyme disease with doxycycline as ticks are overwhelmingly common in this region - may treat with OTC dayquil, nyquil, ibuprofen/tylenol as needed for body aches, chills, fever - would encourage good water intake of about 60oz daily - just to be safe, we have obtained blood cultures. We highly suspect they will be negative but on the off chance they are positive, we will have pt return for IV antibiotics #Recent pancreatic stent placement continue usual outpatient followup as scheduled, no concern for complications at this time - appt to exchange stent next week Total Time Total Time Spent Total Time Spent (In Minutes): per attending attestation Discharge Plan Discharge Items Patient Disposition: Home - Self-Care Reason For Visit: ABDOMINAL PAIN, TRANSIENT FEVER Discharge Diagnosis: viral illness Condition on Discharge: Fair Activity: Per Instructions section Non-emergency contact: Primary Care Provider Call non-emergency contact if: your symptoms worsen and your pain is not controlled Follow-up/Referrals: Rebecca Fuchs DO [Primary Care Provider] - (Please call tomorrow to schedule a hospital follow-up appt with PCP.) Davin,Joey V., [Resident] - (Please call tomorrow to make a follow-up appt.) Diet: Regular Addtl Attending Provider Instructions: You were sent to the ER by recommendation by control systems specialist due to fever of 102 and appearing ill in the setting of recent pancreatic stent placement. You did not have any new concerning lab findings, and have no signs or symptoms consistent with a bacterial infection, thus we are suspecting you have a viral illness. With stable vital signs and no concerning signs or symptoms, we feel comfortable with your discharge today with close outpatient followup. #Viral illness #Outpatient fever No concern for bacterial infection, most likely a common viral illness. - fevers and symptoms may go up and down, but if you are still having fever, body aches, chills, sweats, etc. at about a week since symptom onset, please see your PCP as we may recommend empiric treatment for Lyme disease with doxycycline as ticks are overwhelmingly common in this region - may treat with OTC dayquil, nyquil, ibuprofen/tylenol as needed for body aches, chills, fever - would encourage good water intake of about 60oz daily - just to be safe, we have obtained blood cultures which will have results in about 24hrs. We will let you know of the results- we highly suspect they will be negative (no growth) but on the off chance they are positive, we will have you return for IV antibiotics. #Recent pancreatic stent placement continue usual outpatient followup as scheduled, no concern for complications at this time Otherwise continue usual outpatient regimens. Pending Studies at Discharge: Yes Studies:: blood cultures Stand-Alone Forms: [email or web address], Smoking Cessation Medications and DC Order Prescriptions: Continued sotalol 120 mg tablet 120 mg PO BID milk thistle 500 mg capsule 500 mg PO DAILY Patient Comments: 01/19- otc unable to verify Rx Instructions: give with meal/snack omeprazole 40 mg capsule,delayed release(DR/EC) 40 mg PO DAILY cholecalciferol (vitamin D3) [Vitamin D3] 50 mcg (2,000 unit) Capsule 50 mcg PO DAILY Patient Comments: 01/19- otc unable to verify loratadine 10 mg tablet 10 mg PO DAILY Patient Comments: 01/19- otc unable to verify Eliquis 5 mg tablet 5 mg PO BID Qty: 74 0RF Hold Instructions: Resume on 12/24/24. Rx Instructions: 10 mg twice a day x7 days then 5 mg twice a day thereafter Sciatiease Suppliment 1 cap PO BID Patient Comments: 01/19- otc unable to verify Discharge Orders: Discharge Order (Routine); Ordered 01/20/25 Ordered By: Joey Gray/Other Patient Handouts: Fever Cause Unknown Admission Data Admit Date/Time: 01/19/25 17:28 Attending Provider: Dewey Ragsdale Admit Provider: Canelo Pickett Primary Care Provider: Rebecca Fuchs Other Providers: Canelo Pickett Other Interventions: Discharge Summary Assessment (RN) Last Done: 01/20/25 17:32 Supervising Physician Co-Signing Physician Notes I personally examined the patient and verified all salvador points of history and exam, discussed case, and agree with decision making with Dr Jin Feeling okay overall and would very much like to go home. Notes that she has some intermittent GI distress after eatingbut this is definitely not worse or new or really any different and has been for the last quite a whiletry to place the time frame as after her discharge from [facility] and this seems to be about rightbut definitely is not new or worsening. She would not of come to the hospital if not directed to come via heme/onc. She notes no cough or shortness of breath, no painful skin rashes, no dysuria, no diarrhea. She basically had the fever and has been feeling a bit rundown and fatigued. Blood cultures sent by us todayobviously too soon for any meaningful results vitals noted, in general she is awake and alert pleasant no distress. HEENT normocephalic atraumatic mucous membranes moist. Cardio is regular rate, breathing is unlabored no accessory muscle use good effort. Abdomen is soft mildly distended nontender no masses organomegaly no guarding rebound or rigidity. Skin without rashes pallor or icterus. Labs and diagnostics noted feverrecent pancreatic procedures raised concern, but with no new or worse GI symptoms, no findings on imaging or labs consistent with abdominal pathologyI highly doubt any new abdominal pathology is at play. No evidence of pneumonia, UTI, cellulitis, or C. difficile. Blood cultures have been sent but I doubt she is bacteremic and she is comfortable with going home and us calling her back if we are surprised with positive blood culture findings. I strongly suspect this was viral etiology at playthe viral infections present in the community right now definitely have been causing significant fevers and a lot of people. We also discussed the continuing possibility in [facility] of a febrile/constitutional illness being tickborneat this point she shows no evidence of tickborne illness, but we discussed if her fevers were to persist for a few more days with no other new or changing symptoms, then something tickborne would start to be higher on the differential. Safe/stable for home. Monitoring symptomsobviously getting evaluated if anything new or different evolves, and obviously getting evaluated if the fever persists past another roughly 48 to 72 hours. Resident Activity Tracking Resident Involvement: Resident Care Provided Care Provided: Adult Hospital Medicine
--- NOTE | 2025-01-20 17:58 | Billing Data ---
Date of Service January 20, 2025 Coding Level of Care Code 68243 IN/OBS DISCH 30 MIN/LESS
== END 2025-01-20 18:10 | disposition home or self-care (01) ==
LOC: ED 12:50 → 3N 12:50 → SUATTDRO 17:28 → 3N 20:23